=== PATIENT | female | born 1950 | race Caucasian/White ===

== ENCOUNTER 2017-02-05 19:04 | Inpatient (IN) | payer OTHER ==
[~2017-02-05] VITALS: Ht 167.6 cm; Wt 59.0 kg
--- NOTE | 2017-02-05 19:27 | NUR ---
VERY STRONG ODOR OF CIGAZRETTE SMOKE ABOUT PATIENT. TO ROOM 13 VIA W/C.
--- NOTE | 2017-02-05 20:00 | NUR ---
PT NOW WITH IV ESTABLISHED, BLOOD DRAWN, URINE COLLECTED. PT DESCRIBES EPIGASTRIC PAIN, SEVERE. AT BEDSIDE.
[2017-02-05 20:07] LABS: URINE BLOOD DIPSTICK TRACE-INTACT (NEGATIVE); URINE COLOR YELLOW; URINE GLUCOSE - DIPSTICK NEGATIVE (NEGATIVE); URINE KETONE 15 mg/dL (NEGATIVE); URINE NITRITE - DIPSTICK NEGATIVE (Negative); URINE PROTEIN - DIPSTICK TRACE mg/dL (NEG-TRACE); URINE SPECIFIC GRAVITY 1.025; URINE UROBILINOGEN - DIPSTICK 0.2 E.U./dL (0.2)
[2017-02-05 20:09] LABS: URINE BILIRUBIN - DIPSTICK NEGATIVE (NEGATIVE); URINE CLARITY HAZY; URINE LEUK ESTERASE MODERATE (NEGATIVE)
[2017-02-05 20:12] LABS: HEMATOCRIT 41.8 % (37.0-47.0); HEMOGLOBIN 14.1 g/dl (12.0-16.0); IMMATURE GRANULOCYTES 0.3 % (0.0-1.0); MEAN CELL VOLUME 95.2 fL CALC (80.0-100.0); MEAN CORPUSCULAR HGB 32.1 pG CALC (26.0-32.0); MEAN CORPUSCULAR HGB CONC 33.7 g/L CALC (32.0-36.0); NEUT# 9.57 thou/uL (2.00-7.15); RED BLOOD COUNT 4.39 mill/uL (4.20-5.60); RED CELL DISTRI WIDTH 13.4 % (11.5-15.5)
[2017-02-05 20:16] LABS: URINE MUCUS MANY hpf (NONE-FEW); URINE SQUAMOUS EPITHELIAL CELL MANY EPI/hpf (0-FEW)
[2017-02-05 20:33] LABS: ALBUMIN 4.2 g/dL (3.2-5.0); ALKALINE PHOSPHATASE 98 u/l (38-126); ANION GAP 13 (6-22 (CALC)); BILIRUBIN, TOTAL 0.9 mg/dL (0.0-1.4); BUN 8 mg/dL (8-23); BUN/CREATININE RATIO 16 (12-20 (CALC)); CALCIUM 9.6 mg/dL (8.4-10.2); CARBON DIOXIDE 24 mmol/l (22-30); CHLORIDE 102 mmol/l (95-108); CREATININE 0.5 mg/dL (0.5-1.0); GFR > 60 ML/MIN (>=60 (CALC)); GFR FOR AFR.AMER. > 60 ML/MIN (>=60 (CALC)); GLUCOSE 143 mg/dL (82-115); LIPASE 1382 u/l (23-300); POTASSIUM 3.3 mmol/l (3.5-5.1); SGOT/AST 40 u/l (9-36); SGPT/ALT 56 u/l (11-66); SODIUM 137 mmol/l (137-146)
--- NOTE | 2017-02-05 20:54 | NUR ---
REPORT RECIEVED FROM JAMIL PECK
--- NOTE | 2017-02-05 21:20 | NUR ---
MD ORDERED PO POTASSIUM WHILE PT IS NPO. ASKED IF HE WANTED PILLS TO BE GIVEN AND HE SAID YES. PT GIVEN PILLS WITH SMALL AMOUNT OF WATER
[2017-02-05 21:23] LABS: BARBITURATES NEGATIVE (NEGATIVE); COCAINE NEGATIVE (NEGATIVE); METHADONE NEGATIVE (NEGATIVE); OXCYCODONE NEGATIVE (NEGATIVE); TETRAHYDROCANNABIONOL NEGATIVE (NEGATIVE); TRICYLIC ANTIDEPRESSANTS NEGATIVE (NEGATIVE)
[2017-02-05 22:10] VITALS: BP 140/88
--- NOTE | 2017-02-05 22:35 | NUR ---
PT TRANSFERRED TO FLOOR VIA STRETCHER IN STABLE CONDITION ACCOMPANIED BY CISCO AU AND SPOUSE;PT AMBULATED WITH A STEADY GAIT TO BEDSIDE;WT AND VS OBTAINED BY JANET WEEKS;PT VOICES NO COMPLAINTS OF PAIN OR DISCOMFORTS AT THIS TIME STATING "I FEEL MUCH BETTER";PT EDUCATED ON PAIN SCALE AND REPORTING AND VERBALIZES UNDERSTANDING;PT ORIENTED TO ROOM AND CALL LIGHT SYSTEM;ASSESSMENT COMPLETED;#20G TO LAC INFUSING LR @ 150ML/HR WELL;PT EDUCATED ON NPO DIET;RESPIRATIONS EVEN AND UNLABORED ON RA;SKIN INTACT;PT PLEASANT TO NURSE BUT CONSTANTLY YELLING AT WHILE WRITTER IS COMPLETING ASSESSMENT;SAFETY PRECAUTIONS REINFORCED;PT DENIES ANY OTHER NEEDS AT THIS TIME;PT EDUCATED TO CALL FOR ASSISTANCE IF NEEDED;CALL LIGHT IN REACH;WILL CONTINUE TO MONITOR
--- NOTE | 2017-02-05 22:35 | NUR ---
Admission Note Report Given to: juan josé Transported by: Wheelchair x Stretcher Transported with: x Nurse Transporter x Patent IV O2 Integrity Manager pt left er in stable condition
--- NOTE | 2017-02-06 00:10 | NUR ---
PT APPEARS TO BE SLEEPING IN SUPINE POSITION;TEMP RE-CHECKED REPORTING 98.5;PT VOICES NO COMPLAINTS OR CONCERNS;IV SITE PATENT INFUSING LR WITH EASE;WILL CONTINUE TO MONITOR
--- NOTE | 2017-02-06 01:30 | NUR ---
PT COMPLAINS OF ABDOMINAL PAIN RATING 7/10 ON THE PAIN SCALE AND REQUESTS PAIN MEDICATION;PT MEDICATED WITH PRN TORADOL 15MG;WILL CONTINUE TO MONITOR
[2017-02-06 05:19] VITALS: BP 104/77
[2017-02-06 06:02] LABS: HEMATOCRIT 40.8 % (37.0-47.0); HEMOGLOBIN 13.6 g/dl (12.0-16.0); MEAN CELL VOLUME 96.2 fL CALC (80.0-100.0); MEAN CORPUSCULAR HGB 32.1 pG CALC (26.0-32.0); MEAN CORPUSCULAR HGB CONC 33.3 g/L CALC (32.0-36.0); RED BLOOD COUNT 4.24 mill/uL (4.20-5.60); RED CELL DISTRI WIDTH 13.7 % (11.5-15.5)
--- NOTE | 2017-02-06 06:15 | NUR ---
PT RESTING IN SEMI FOWLERS POSITION COMPLAINING OF ABDOMINAL PAIN RATING 10/10 ON THE PAIN SCALE;PT MEDICATED WITH PRN MORPHINE 2MG IVP;RESPIRATIONS EVEN AND UNLABORED ON RA;IV FLUIDS INFUSING WELL TO LAC;PT RE-POSITIONED IN BED;PT DENIES ANY OTHER NEEDS AT THIS TIME AND IS EDUCATED TO CALL FOR ASSISTANCE IF NEEDED;CALL LIGHT IN REACH;WILL CONTINUE TO MONITOR
[2017-02-06 06:19] LABS: ALKALINE PHOSPHATASE 95 u/l (38-126); ANION GAP 13 (6-22 (CALC)); BILIRUBIN, TOTAL 0.9 mg/dL (0.0-1.4); BUN 6 mg/dL (8-23); BUN/CREATININE RATIO 11 (12-20 (CALC)); CALCIUM 9.3 mg/dL (8.4-10.2); CARBON DIOXIDE 25 mmol/l (22-30); CHLORIDE 106 mmol/l (95-108); CREATININE 0.5 mg/dL (0.5-1.0); GFR > 60 ML/MIN (>=60 (CALC)); GFR FOR AFR.AMER. > 60 ML/MIN (>=60 (CALC)); GLUCOSE 128 mg/dL (82-115); LIPASE 893 u/l (23-300); MAGNESIUM 2.1 mg/dL (1.6-2.3); SGOT/AST 33 u/l (9-36); SGPT/ALT 48 u/l (11-66); SODIUM 140 mmol/l (137-146); TOTAL PROTEIN 6.7 g/dL (6.3-8.2)
--- NOTE | 2017-02-06 07:15 | NUR ---
SHIFT CHANGE REPORT FROM COLTON STEINBERG AWAKE ALERT AND ORIENTED RESTING IN BED, C/O LOWER ABDOMINAL PAIN @ 3/10 AT THIS TIME BUT REPORTED PAIN MEDS HAVE BEEN CONTROLLING MID-UPPER ABD PAIN, IVF INFUSING, CALL WARE IN REACH.
[2017-02-06 08:33] VITALS: BP 149/98
[2017-02-06 09:44] LABS: CHOLESTEROL HDL RATIO 4.6 (<4.4 (CALC))
--- NOTE | 2017-02-06 11:28 | NUR ---
PAIN CONCERNS ADDRESSED, TRANSPORTED OFF UNIT AT THIS TIME VIA W/C FOR PROCEDURE, WILL CONTINUE TO MONITOR.
--- NOTE | 2017-02-06 15:03 | NUR ---
PT TEARY EYED AT THIS TIME, C/O OF SON AND OF DOG & PET BIRD RECENTLY, ALSO C/O MARRIAGE PROBLEMS. I LISTENED THERAPEUTICALLY AND GAVE INFORMATION ON INVOLVEMENT IN COMMMUNITY ACTIVITIES SUCH VISITING CHURCHES AND JOINING SOCIAL GROUPS TO GET INVOLVED IN SOCIAL ACTIVITIES AND MEETING NEW PEOPLE SINCE SHE IS NEW IN THIS AREA. ALSO MD'S ORDER FOR COPING WITH NICOTINE ADDICTION. PT IS APPRECIATIVE FOR THERAPEUTIC/EDUCATIONAL TIME SPENT WITH HER. PAIN CONCERNS ADDRESSED, CALL WARE IN REACH.
[2017-02-06 15:23] VITALS: BP 139/92
--- NOTE | 2017-02-06 17:40 | NUR ---
SPOUSE VISITING AT THIS TIME, ALL NEEDS ADDRESSED, CALL WARE IN REACH.
[2017-02-06 19:00] VITALS: BP 134/83
--- NOTE | 2017-02-06 19:30 | NUR ---
PT RESTING IN BED WATCHING TV. PT IS ALERT AND ORIENTED X3. PERRLA. HR REGULAR. PULSES PALPABLE THROUGHOUT. NO EDEMA NOTED. RESP ARE EVEN AND UNLABORED. WHEEZING NOTED THROUGHOUT LUNGS. PT IS A CURRENT SMOKER. NICOTINE PATCH IN PLACE. BS ACTIVE. PT STATES THAT SHE HAS NOT HAD A BM IN AT LEAST 3 DAYS. EXPLAINED TO PT THAT HER DIET WOULD BE ADVANCE AT BREAKFAST IN THE AM TO FULL LIQUID SINCE SHE IS TOLERATING CLEAR LIQUIDS. #20 LFA LR @150CC/HR INFUSING. NO REDNESS OR EDEMA NOTED. WILL CONTINUE TO MONITOR
--- NOTE | 2017-02-07 | NUR ---
PT SITTING UP ON SIDE OF BED. RESP ARE EVEN AND UNLABORED. PT STATES THAT SHE IS HAVING ABD PAIN 11/24. WILL MEDICATE PER MD ORDERS. WILL CONTINUE TO MONITOR
[2017-02-07 04:10] VITALS: BP 146/88
--- NOTE | 2017-02-07 04:10 | NUR ---
PT RESTING IN BED WITH EYES CLOSED. AROUSES TO VERBAL STIMULI. RESP ARE EVEN AND UNLABORED. NO COMPLAINTS AT THIS TIME. WILL CONTINUE TO MONITOR
[2017-02-07 05:57] LABS: HEMATOCRIT 35.4 % (37.0-47.0); HEMOGLOBIN 11.7 g/dl (12.0-16.0); MEAN CORPUSCULAR HGB 32.1 pG CALC (26.0-32.0); MEAN CORPUSCULAR HGB CONC 33.1 g/L CALC (32.0-36.0); RED BLOOD COUNT 3.65 mill/uL (4.20-5.60); RED CELL DISTRI WIDTH 13.6 % (11.5-15.5)
[2017-02-07 06:02] LABS: AMYLASE 51 u/l (30-110); ANION GAP 9 (6-22 (CALC)); BUN 3 mg/dL (8-23); BUN/CREATININE RATIO 7 (12-20 (CALC)); CARBON DIOXIDE 29 mmol/l (22-30); CHLORIDE 105 mmol/l (95-108); CREATININE 0.5 mg/dL (0.5-1.0); GFR > 60 ML/MIN (>=60 (CALC)); GFR FOR AFR.AMER. > 60 ML/MIN (>=60 (CALC)); GLUCOSE 125 mg/dL (82-115); LIPASE 480 u/l (23-300); POTASSIUM 3.4 mmol/l (3.5-5.1); SODIUM 140 mmol/l (137-146)
[2017-02-07 07:26] VITALS: BP 147/93
--- NOTE | 2017-02-07 07:31 | NUR ---
SHIFT CHANGE REPORT FROM JUAN, PT AWAKE ALERT AND ORIENTED, C/O ABD PAIN @ 10/10 AT THIS TIME, VERY TALKATIVE AND SHARES PROBLEM CONCERNS, STATES SHE HAD BEEN TAKING ATENOLOL 50MG DAILY BUT STOLLED APPROXIMATELY 2 YRS AGO AND HAS NOT SEEN A DOCTOR FOR ABOUT 2 YEARS WELL. EDUCATED ON STROKE AND PA RISKS COUPLED WITH SOCIAL HISTORY OF SMOKING AND DRINKING. ENCOURAGED TO ADDRESS HEALTH CONCERNS BEFORE CATASTROPHE OCCURS.
[2017-02-07 10:39] VITALS: BP 147/93
[2017-02-07] MEDS ORDERED: PANTOPRAZOLE SO40 M1 PO (11:01)
[2017-02-07] MEDS ORDERED: KLONOPIN0.5 MG PO (11:01)
[2017-02-07] MEDS ORDERED: FISH OIL1000 MG PO (11:01)
[2017-02-07] MEDS ORDERED: NICODERM C21 MG/242 TD (11:01)
[2017-02-07] MEDS ORDERED: LOSARTAN POTASS25 MG PO (11:01)
[2017-02-07] MEDS ORDERED: TRICOR145 MG PO (11:01)
[2017-02-07] MEDS ORDERED: LEXAPRO10 MG PO (11:01)
[2017-02-07] MEDS ORDERED: KEFLEX500 MG PO (11:04)
[2017-02-07] MEDS ORDERED: TRAMADOL HCL50 MG PO (11:04)
--- NOTE | 2017-02-07 11:39 | NUR ---
C/O ABD PAIN AT THIS TIME AND REQUESTING MAIN MED BEFORE D/C HOME, ADVISED CONCERNS WILL BE ADDRESSED IN TIMELY MANNER.
--- NOTE | 2017-02-07 11:49 | NUR ---
Talked to patient during discharge med rec. Topics discussed included discharge instructions, smoking cessation, reducing alcohol intake, and medication side-effects. The importance of completing the entire course of abx was discussed. Talked about side-effects of keflex including nausea/vomiting/diarrhea. Patient was advised to seek medical help if experiencing severe diarrhea. DIscussed the risk of respiratory depression with Ultram. Talked about decreasing alcohol intake due to potential durg interactions. Patient was advised to monitor blood pressure at home and keep a daily log. DASH diet was also discussed. Talked about the potential side-effects of Fenofibrate including myalgia and coca-cola colored urine. Side-effects of SSRIs and NRTs were discussed in detail.
--- NOTE | 2017-02-07 13:36 | NUR ---
Discharge instructions given. Patient verbalizes understanding of same. Discharged in good condition via Wheelchair to Home with *Other. All belongings sent with pt. LEFT FOR HOME IN CAB @ [id number].
== END 2017-02-07 13:23 | disposition home or self-care (01) | DRG 439 ==
LOC: ED 19:04 → ED-I 20:00 → ED 20:58 → MS2 20:59
PROVIDERS: Emergency Medicine; Internal Medicine; ADMIT Internal Medicine; ATTEND Internal Medicine
PROC: 3E0234Z Introduction of Serum, Toxoid and Vaccine into Muscle, Percutaneous Approach (ICD-10-PCS; principal; 2017-02-07)
DX: K85.20 Alcohol induced acute pancreatitis without necrosis or infection (principal); N39.0 Urinary tract infection, site not specified; K70.0 Alcoholic fatty liver; E78.1 Pure hyperglyceridemia; I10 Essential (primary) hypertension; K86.0 Alcohol-induced chronic pancreatitis; F10.20 Alcohol dependence, uncomplicated; F17.210 Nicotine dependence, cigarettes, uncomplicated; F32.9 Major depressive disorder, single episode, unspecified; F41.9 Anxiety disorder, unspecified; B95.4 Other streptococcus as the cause of diseases classified elsewhere; Z87.11 Personal history of peptic ulcer disease; Z23 Encounter for immunization
CPT/HCPCS: Q9967

== ENCOUNTER 2017-02-27 11:25 | Emergency (ER) | payer OTHER ==
[~2017-02-27] VITALS: Ht 167.6 cm; Wt 65.0 kg
[~2017-02-27 11:25] MED LIST: FISH OIL1000 MG PO; KEFLEX500 MG PO; KLONOPIN0.5 MG PO; LEXAPRO10 MG PO; LOSARTAN POTASS25 MG PO; NICODERM C21 MG/242 TD; PANTOPRAZOLE SO40 M1 PO; TRAMADOL HCL50 MG PO; TRICOR145 MG PO
[2017-02-27] MEDS ORDERED: CARAFATE1 GM PO (12:20)
[2017-02-27 12:47] LABS: HEMATOCRIT 44.6 % (37.0-47.0); HEMOGLOBIN 14.6 g/dl (12.0-16.0); IMMATURE GRANULOCYTES 0.3 % (0.0-1.0); MEAN CELL VOLUME 96.1 fL CALC (80.0-100.0); MEAN CORPUSCULAR HGB 31.5 pG CALC (26.0-32.0); MEAN CORPUSCULAR HGB CONC 32.7 g/L CALC (32.0-36.0); NEUT# 6.12 thou/uL (2.00-7.15); RED BLOOD COUNT 4.64 mill/uL (4.20-5.60); RED CELL DISTRI WIDTH 13.3 % (11.5-15.5); URINE BLOOD DIPSTICK NEGATIVE (NEGATIVE); URINE COLOR YELLOW; URINE GLUCOSE - DIPSTICK NEGATIVE (NEGATIVE); URINE KETONE NEGATIVE (NEGATIVE); URINE LEUK ESTERASE NEGATIVE (NEGATIVE); URINE NITRITE - DIPSTICK NEGATIVE (Negative); URINE PH 5.5 (4.5-8.0); URINE PROTEIN - DIPSTICK NEGATIVE (NEG-TRACE); URINE SPECIFIC GRAVITY >=1.030; URINE UROBILINOGEN - DIPSTICK 0.2 E.U./dL (0.2)
[2017-02-27 12:55] LABS: ALBUMIN 4.4 g/dL (3.2-5.0); ALKALINE PHOSPHATASE 106 u/l (38-126); AMYLASE 56 u/l (30-110); ANION GAP 13 (6-22 (CALC)); BILIRUBIN, TOTAL 0.5 mg/dL (0.0-1.4); BUN 7 mg/dL (8-23); BUN/CREATININE RATIO 12 (12-20 (CALC)); CALCIUM 9.4 mg/dL (8.4-10.2); CARBON DIOXIDE 27 mmol/l (22-30); CHLORIDE 102 mmol/l (95-108); CREATININE 0.6 mg/dL (0.5-1.0); GFR > 60 ML/MIN (>=60 (CALC)); GFR FOR AFR.AMER. > 60 ML/MIN (>=60 (CALC)); GLUCOSE 123 mg/dL (82-115); LIPASE 420 u/l (23-300); POTASSIUM 3.8 mmol/l (3.5-5.1); SGOT/AST 30 u/l (9-36); SGPT/ALT 29 u/l (11-66); SODIUM 138 mmol/l (137-146); TOTAL PROTEIN 7.4 g/dL (6.3-8.2)
[2017-02-27 12:57] LABS: URINE BILIRUBIN - DIPSTICK SMALL (NEGATIVE); URINE CLARITY CLEAR
[2017-02-27] MEDS ORDERED: PREVACID30 M3 PO (14:36)
[2017-02-27] MEDS ORDERED: LORTAB 1010 MG PO (14:36)
[2017-02-27] MEDS ORDERED: ZOFRAN ODT4 MG PO (14:36)
[2017-02-27 14:42] VITALS: BP 126/84
== END 2017-02-27 14:55 | disposition home or self-care (01) | DRG 392 ==
LOC: ED 11:25
PROVIDERS: Emergency Medicine
DX: R10.13 Epigastric pain (principal); K86.1 Other chronic pancreatitis; R11.2 Nausea with vomiting, unspecified; I10 Essential (primary) hypertension; K27.9 Peptic ulcer, site unspecified, unspecified as acute or chronic, without hemorrhage or perforation; F17.200 Nicotine dependence, unspecified, uncomplicated
CPT/HCPCS: Q9967; S0164

== ENCOUNTER 2017-03-07 14:00 | Emergency (ER) | payer OTHER ==
[~2017-03-07] VITALS: Ht 167.6 cm; Wt 59.0 kg
[~2017-03-07 14:00] MED LIST changes: +CARAFATE1 GM PO; +LORTAB 1010 MG PO; +PREVACID30 M3 PO; +ZOFRAN ODT4 MG PO
[2017-03-07 15:13] LABS: HEMATOCRIT 45.9 % (37.0-47.0); HEMOGLOBIN 15.2 g/dl (12.0-16.0); IMMATURE GRANULOCYTES 0.2 % (0.0-1.0); MEAN CELL VOLUME 96.4 fL CALC (80.0-100.0); MEAN CORPUSCULAR HGB 31.9 pG CALC (26.0-32.0); MEAN CORPUSCULAR HGB CONC 33.1 g/L CALC (32.0-36.0); NEUT# 8.13 thou/uL (2.00-7.15); RED BLOOD COUNT 4.76 mill/uL (4.20-5.60); RED CELL DISTRI WIDTH 13.9 % (11.5-15.5)
[2017-03-07 15:54] LABS: ALBUMIN 4.4 g/dL (3.2-5.0); ALKALINE PHOSPHATASE 112 u/l (38-126); AMYLASE 99 u/l (30-110); ANION GAP 17 (6-22 (CALC)); BILIRUBIN, TOTAL 0.7 mg/dL (0.0-1.4); BUN 9 mg/dL (8-23); BUN/CREATININE RATIO 15 (12-20 (CALC)); CALCIUM 9.8 mg/dL (8.4-10.2); CARBON DIOXIDE 22 mmol/l (22-30); CHLORIDE 105 mmol/l (95-108); CREATININE 0.6 mg/dL (0.5-1.0); GFR > 60 ML/MIN (>=60 (CALC)); GFR FOR AFR.AMER. > 60 ML/MIN (>=60 (CALC)); GLUCOSE 118 mg/dL (82-115); LIPASE 820 u/l (23-300); SGOT/AST 29 u/l (9-36); SGPT/ALT 24 u/l (11-66); SODIUM 140 mmol/l (137-146); TOTAL PROTEIN 7.1 g/dL (6.3-8.2)
[2017-03-07 16:20] LABS: MYOGLOBIN 24 ng/mL (0 - 62)
[2017-03-07] MEDS ORDERED: LORTAB 5/3255 MG PO (18:38)
[2017-03-07 18:42] VITALS: BP 127/80
== END 2017-03-07 18:20 | disposition home or self-care (01) | DRG 440 ==
LOC: ED 14:00
PROVIDERS: Emergency Medicine
DX: K86.1 Other chronic pancreatitis (principal); F17.210 Nicotine dependence, cigarettes, uncomplicated; R10.13 Epigastric pain; R11.10 Vomiting, unspecified; R94.31 Abnormal electrocardiogram [ECG] [EKG]; I10 Essential (primary) hypertension
CPT/HCPCS: Q9967

== ENCOUNTER 2017-03-20 10:29 | Inpatient (IN) | payer OTHER ==
[~2017-03-20] VITALS: Ht 167.6 cm; Wt 58.0 kg
[~2017-03-20 10:29] MED LIST changes: +LORTAB 5/3255 MG PO
--- NOTE | 2017-03-20 10:34 | NUR ---
AMBULATORY TO ER ROOM 9, TO BED
[2017-03-20 11:09] LABS: BARBITURATES NEGATIVE (NEGATIVE); COCAINE NEGATIVE (NEGATIVE); METHADONE NEGATIVE (NEGATIVE); TETRAHYDROCANNABIONOL NEGATIVE (NEGATIVE); TRICYLIC ANTIDEPRESSANTS NEGATIVE (NEGATIVE)
[2017-03-20] MEDS ORDERED: CREON3000 UNIT PO (11:09)
[2017-03-20 11:10] LABS: OXCYCODONE NEGATIVE (NEGATIVE); URINE BILIRUBIN - DIPSTICK NEGATIVE (NEGATIVE); URINE BLOOD DIPSTICK TRACE-INTACT (NEGATIVE); URINE CLARITY CLEAR; URINE COLOR YELLOW; URINE GLUCOSE - DIPSTICK 500 mg/dL (NEGATIVE); URINE KETONE TRACE mg/dL (NEGATIVE); URINE LEUK ESTERASE TRACE (NEGATIVE); URINE NITRITE - DIPSTICK NEGATIVE (Negative); URINE PH 5.5 (4.5-8.0); URINE PROTEIN - DIPSTICK NEGATIVE (NEG-TRACE); URINE SPECIFIC GRAVITY >=1.030; URINE UROBILINOGEN - DIPSTICK 0.2 E.U./dL (0.2)
[2017-03-20 11:12] LABS: ALBUMIN 4.6 g/dL (3.2-5.0); ALKALINE PHOSPHATASE 96 u/l (38-126); ANION GAP 18 (6-22 (CALC)); BILIRUBIN, TOTAL 0.5 mg/dL (0.0-1.4); BUN 9 mg/dL (8-23); BUN/CREATININE RATIO 15 (12-20 (CALC)); CALCIUM 10.6 mg/dL (8.4-10.2); CARBON DIOXIDE 24 mmol/l (22-30); CHLORIDE 102 mmol/l (95-108); CREATININE 0.6 mg/dL (0.5-1.0); GFR > 60 ML/MIN (>=60 (CALC)); GFR FOR AFR.AMER. > 60 ML/MIN (>=60 (CALC)); GLUCOSE 168 mg/dL (82-115); POTASSIUM 4.2 mmol/l (3.5-5.1); SGOT/AST 24 u/l (9-36); SGPT/ALT 23 u/l (11-66); SODIUM 139 mmol/l (137-146); TOTAL PROTEIN 7.4 g/dL (6.3-8.2)
--- NOTE | 2017-03-20 11:20 | NUR ---
PATIENT UPDATED ON PLAN OF CARE VERBAL UNDERSTANDING, DENIES ANY NEEDS. WILL CONTINUE TO MONITOR.
[2017-03-20 11:34] LABS: HEMOGLOBIN 15.5 g/dl (12.0-16.0); IMMATURE GRANULOCYTES 0.4 % (0.0-1.0); MEAN CELL VOLUME 97.3 fL CALC (80.0-100.0); MEAN CORPUSCULAR HGB 32.1 pG CALC (26.0-32.0); NEUT# 8.9 thou/uL (2.00-7.15); RED BLOOD COUNT 4.83 mill/uL (4.20-5.60); RED CELL DISTRI WIDTH 13.7 % (11.5-15.5)
--- NOTE | 2017-03-20 12:41 | NUR ---
PATIENT REPORTS PAIN LEVEL 10/10. MD INFORMED. AWAITNG NEW ORDERS.
--- NOTE | 2017-03-20 13:09 | NUR ---
PATIENT MEDICATED PER MD ORDER FOR PAIN TILERATED WELL.
--- NOTE | 2017-03-20 13:39 | NUR ---
SBAR PRINTED TO FLOOR
--- NOTE | 2017-03-20 13:41 | NUR ---
PATIENT REPORTS PAIN LEVEL 3/10 AT THIS TIME.
--- NOTE | 2017-03-20 14:12 | NUR ---
ATTEMPT MADE TO CALL REPORT, SPOKE TO KIKE. STATES "NURSE WILL CALL YOU RIGHT BACK."
--- NOTE | 2017-03-20 14:20 | NUR ---
PT TO ROOM VIA STRETCHER ACCOMPANIED BY STAFF AND FAMILY; AMBULATORY TO CHAIR WITHOUT DIFFICULTY; A/O X3; C/O ABD PAIN 310; #[address], NO REDNESS OR EDEMA NOTED; ORIENTED TO ROOM AND CALL SYSTEM; CALL WARE WITHIN REACH; WILL CONTINUE TO MONITOR.
--- NOTE | 2017-03-20 14:24 | NUR ---
REPORT GIVEN TO CISCO ZEPEDA.
--- NOTE | 2017-03-20 14:25 | NUR ---
Admission Note Report Given to: SBAR PRINTED TO FLOOR Transported by: X Wheelchair Stretcher Transported with: X Nurse Transporter X Patent IV O2 Transit Survey Worker
--- NOTE | 2017-03-20 14:30 | NUR ---
PATIENT TRANSPORTED TO [facility] VIA WHEELCHAIR. CARE RELINQUISHED TO CISCO ZEPEDA.
[2017-03-20 14:47] VITALS: BP 134/90
--- NOTE | 2017-03-20 17:00 | NUR ---
PT IN SUPINE POSITION; MEDICATED ORDERED FOR C/O ABD PAIN 11/24; IVF INFUSING WITHOUT DIFFICULTY; CALL WARE WITHIN REACH; WILL CONTINUE TO MONITOR.
[2017-03-20 18:40] VITALS: BP 102/60
--- NOTE | 2017-03-20 19:45 | NUR ---
PT RESTING IN BED WATCHING TV. RESP EVEN AND UNLABORED. LUNGS CLEAR BILAT. NO DISTRESS NOTED. ABD SOFT, BOWEL SOUNDS PRESENT. PEDAL PULSES PALPATED BILAT. IV LFA PATENT, NO REDNESS OR EDEMA NOTED. PT DENIES ANY PAIN OR DISCOMFORT. FREQUENT ROUNDS MADE. SAFETY PRECAUTIONS REINFORCED. CALL LIGHT WITHIN REACH.
[2017-03-20 21:56] VITALS: BP 129/82
--- NOTE | 2017-03-21 00:20 | NUR ---
PT APPEARS TO BE SLEEPING WITH EYES CLOSE. RESP EVEN AND UNLABORED. NO DISTRESS NOTED. IV PATENT. CALL LIGHT WITHIN REACH.
--- NOTE | 2017-03-21 02:38 | NUR ---
PT STATES ABD PAIN; MEDICATED. PT STATES ANXIETY ON HEALTH ISSUES, EMOTIONAL. TALKED WITH PT TO REDUCE ANXIETY DUE TO COMPLAINTS OF HEALTH ISSUES. REASSURED MD WOULD BE IN TO SPEAK WITH PT IN AM.
--- NOTE | 2017-03-21 04:20 | NUR ---
PT APPEARS TO BE SLEEPING. RESP EVEN AND UNLABORED. NO DISTRESS NOTED. CALL LIGHT WITHIN REACH.
[2017-03-21 04:50] VITALS: BP 100/69
[2017-03-21 06:34] VITALS: BP 123/79
[2017-03-21 06:47] LABS: HEMATOCRIT 37.4 % (37.0-47.0); HEMOGLOBIN 12.2 g/dl (12.0-16.0); MEAN CELL VOLUME 99.5 fL CALC (80.0-100.0); MEAN CORPUSCULAR HGB 32.4 pG CALC (26.0-32.0); MEAN CORPUSCULAR HGB CONC 32.6 g/L CALC (32.0-36.0); RED BLOOD COUNT 3.76 mill/uL (4.20-5.60); RED CELL DISTRI WIDTH 13.7 % (11.5-15.5)
[2017-03-21 07:14] LABS: ANION GAP 11 (6-22 (CALC)); BUN 6 mg/dL (8-23); BUN/CREATININE RATIO 13 (12-20 (CALC)); CARBON DIOXIDE 25 mmol/l (22-30); CHLORIDE 109 mmol/l (95-108); CREATININE 0.5 mg/dL (0.5-1.0); GFR > 60 ML/MIN (>=60 (CALC)); GFR FOR AFR.AMER. > 60 ML/MIN (>=60 (CALC)); GLUCOSE 120 mg/dL (82-115); LIPASE 669 u/l (23-300); MAGNESIUM 2.3 mg/dL (1.6-2.3); POTASSIUM 3.8 mmol/l (3.5-5.1); SODIUM 141 mmol/l (137-146)
--- NOTE | 2017-03-21 08:00 | NUR ---
PT AMBULATORY IN ROOM; IVF INFUSING WITHOUT DIFFICULTY; PT C/O ABD PAIN 09/23, WILL MEDICATE WHEN TIME; CALL WARE WITHIN REACH; WILL CONTINUE TO MONITOR.
[2017-03-21 08:35] VITALS: BP 118/80
--- NOTE | 2017-03-21 13:00 | NUR ---
PT MEDICATED ORDERED FOR C/O ABD PAIN 09/23; CALL WARE WITHIN REACH; WILL CONTINUE TO MONITOR.
--- NOTE | 2017-03-21 13:05 | NUR ---
UMESH CATTLE TESTER IN TO SEE PT TO DISCUSS LOW FAT DIET
[2017-03-21] MEDS ORDERED: CREON3000 UNIT PO (14:48)
[2017-03-21] MEDS ORDERED: LORTAB 5/3255 MG PO (14:48)
[2017-03-21] MEDS ORDERED: ELAVIL50 MG PO (14:48)
[2017-03-21] MEDS ORDERED: LOSARTAN POTASS25 MG PO (14:48)
[2017-03-21] MEDS ORDERED: PANTOPRAZOLE SO40 M1 PO (14:48)
[2017-03-21] MEDS ORDERED: TRICOR145 MG PO (14:50)
[2017-03-21] MEDS ORDERED: NICODERM C21 MG/242 TD (14:50)
--- NOTE | 2017-03-21 16:31 | NUR ---
Discharge instructions given. Patient verbalizes understanding of same. Discharged in stable condition via Wheelchair (TAXI) to Home with SELF. All belongings sent with pt.
== END 2017-03-21 16:10 | disposition home or self-care (01) | DRG 440 ==
LOC: ED 10:29 → ED-I 13:15 → ED 13:37 → MS2 13:38
PROVIDERS: Emergency Medicine; ADMIT Internal Medicine; ATTEND Internal Medicine
DX: K85.90 Acute pancreatitis without necrosis or infection, unspecified (principal); K86.1 Other chronic pancreatitis; I10 Essential (primary) hypertension; E78.1 Pure hyperglyceridemia; M19.90 Unspecified osteoarthritis, unspecified site; F10.10 Alcohol abuse, uncomplicated; F17.210 Nicotine dependence, cigarettes, uncomplicated; F41.9 Anxiety disorder, unspecified; F32.9 Major depressive disorder, single episode, unspecified; F51.04 Psychophysiologic insomnia; Z87.11 Personal history of peptic ulcer disease; Z91.14 Patient's other noncompliance with medication regimen
CPT/HCPCS: S0164

== ENCOUNTER 2017-04-26 16:05 | Observation (INO) | payer OTHER ==
[~2017-04-26] VITALS: Ht 167.6 cm; Wt 60.0 kg
[~2017-04-26 16:05] MED LIST changes: +CREON3000 UNIT PO; +ELAVIL50 MG PO
--- NOTE | 2017-04-26 16:10 | NUR ---
PT AMBULATED INTO ER, THROUGH REGISTRATION. TAKEN TO TRIAGE BY WC.
--- NOTE | 2017-04-26 16:15 | NUR ---
PT TAKEN TO ER ROOM 14 BY WC. PT DRINKING WATER IN TRIAGE, NO S/S OF DISTRESS.
--- NOTE | 2017-04-26 16:18 | NUR ---
PT UP TO BATHROOM FOR UA UNASSISTED, CHANGED INTO GOWN.
--- NOTE | 2017-04-26 16:46 | NUR ---
PT STATES HAS BEEN DIAGNOSED WITH PANCREATITIS BACK IN JANUARY, HAS HAD OVER [address] SCANS IN PAST FEW MONTHS, AND JUST WANTS SOME PAIN CONTROL
--- NOTE | 2017-04-26 17:02 | NUR ---
PT STATES PAIN IS STILL SEVERE AFTER TORADOL GIVEN, NOTIFIED, NO NEW ORDERS
[2017-04-26 17:05] LABS: HEMATOCRIT 44.1 % (37.0-47.0); HEMOGLOBIN 14.6 g/dl (12.0-16.0); IMMATURE GRANULOCYTES 0.4 % (0.0-1.0); MEAN CELL VOLUME 93.8 fL CALC (80.0-100.0); MEAN CORPUSCULAR HGB 31.1 pG CALC (26.0-32.0); MEAN CORPUSCULAR HGB CONC 33.1 g/L CALC (32.0-36.0); NEUT# 14.62 thou/uL (2.00-7.15); RED BLOOD COUNT 4.7 mill/uL (4.20-5.60); RED CELL DISTRI WIDTH 14.1 % (11.5-15.5)
[2017-04-26 17:07] LABS: URINE BILIRUBIN - DIPSTICK NEGATIVE (NEGATIVE); URINE BLOOD DIPSTICK TRACE-INTACT (NEGATIVE); URINE CLARITY CLEAR; URINE COLOR YELLOW; URINE GLUCOSE - DIPSTICK NEGATIVE (NEGATIVE); URINE KETONE NEGATIVE (NEGATIVE); URINE LEUK ESTERASE NEGATIVE (NEGATIVE); URINE NITRITE - DIPSTICK NEGATIVE (Negative); URINE PH 5.5 (4.5-8.0); URINE PROTEIN - DIPSTICK NEGATIVE (NEG-TRACE); URINE SPECIFIC GRAVITY 1.025; URINE UROBILINOGEN - DIPSTICK 0.2 E.U./dL (0.2)
[2017-04-26 17:20] LABS: ALBUMIN 4.6 g/dL (3.2-5.0); ALKALINE PHOSPHATASE 100 u/l (38-126); ANION GAP 19 (6-22 (CALC)); BUN 11 mg/dL (8-23); BUN/CREATININE RATIO 20 (12-20 (CALC)); CARBON DIOXIDE 21 mmol/l (22-30); CHLORIDE 102 mmol/l (95-108); CREATININE 0.5 mg/dL (0.5-1.0); GFR > 60 ML/MIN (>=60 (CALC)); GFR FOR AFR.AMER. > 60 ML/MIN (>=60 (CALC)); LIPASE 422 u/l (23-300); POTASSIUM 4.5 mmol/l (3.5-5.1); SGOT/AST 30 u/l (9-36); SGPT/ALT 24 u/l (11-66); SODIUM 138 mmol/l (137-146); TOTAL PROTEIN 7.4 g/dL (6.3-8.2)
--- NOTE | 2017-04-26 17:48 | NUR ---
PT BACK FROM CT. SCAN, ADVISED OF WAIT TIME FOR DOCTOR TO SEE RESULTS.
--- NOTE | 2017-04-26 18:42 | NUR ---
PT STATES SHE IS NOT DECIDED WHETHER SHE WANTS TO STAY OR NOT. WILL LET US KNOW IN A FEW MIN
--- NOTE | 2017-04-26 18:55 | NUR ---
REPORT GIVEN TO THE FLOOR FOR CONTINUATION OF CARE. FLOOR IS BUSY WILL GIVE THEM 15 MIN BEFORE PT IS TO BE BROUGHT TO FLOOR
--- NOTE | 2017-04-26 19:19 | NUR ---
TO MS 290 IN STABLE CONDITION
--- NOTE | 2017-04-26 19:20 | NUR ---
PT TRANSFERRED TO FLOOR IN STABLE CONDITION VIA STRETCHER ACCOMPANIED CISCO CHENG AND SPOUSE;PT AMBULATED TO STANDING SCALE AND BEDSIDE WITH STEADY GAIT;VS OBTAINED BY JANET COOLEY;PT ORIENTED TO ROOM AND CALL LIGHT SYSTEM;PT REPORTS A RECURRENT EPISODE OF PANCREATITIS SINCE 04/25/17 WHERE PAIN HAS BEEN UNCONTROLLED,NO VOMITING NOTED;ABDOMEN DISTENDED,SOFT,TENDER IN ALL FOUR QUADS;HYPERACTIVE BOWEL SOUNDS NOTED;SINCE BEING MEDICATED IN THE ER PAIN HAS NOT DECREASED,PAIN REMAINS A 9/10 ON THE PAIN SCALE;LAST BM 04/25/17,PT REPORTS TO NOT BE PASSING ANY FLATUS;RESPIRATIONS EVEN AND UNLABORED ON RA,CLEAR LUNG SOUNDS NOTED;STRONG PEDAL PULSES;SKIN INTACT;PT A&O X3;#20G TO LAC INFUSING NS,SITE APPEARS HEALTHY;SAFETY PRECAUTIONS REINFORCED WITH BED IN THE LOWEST POSITION;PT ENCOURAGED TO CALL FOR ASSISTANCE IF NEEDED;CALL LIGHT IN REACH;WILL CONTINUE TO MONITOR
[2017-04-26 19:25] VITALS: BP 132/86
--- NOTE | 2017-04-26 21:00 | NUR ---
PT RESTING AT BEDSIDE CRYING STATING "THIS PAIN IN SO BAD I NEED SOMETHING FOR PAIN, I SHOULD HAVE JUST LEFT!"; NOTIFIED OF INCREASING PAIN;NEW ORDER RECEIVED
--- NOTE | 2017-04-26 21:40 | NUR ---
PT MEDICATED WITH MORPHINE 2MG IVP FOR ABDOMINAL PAIN RATING 10/10 ON THE PAIN SCALE;WILL MONITOR FOR EFFECTIVENESS
--- NOTE | 2017-04-26 23:45 | NUR ---
PT RESTING IN SUPINE POSITION COMPLAINING OF ABDOMINAL PAIN;PAIN MEDICATION SCHEDULE RE-EDUCATED AND PT VERBALIZES UNDERSTANDING;IV FLUIDS INFUSING WELL TO LAC;CALL LIGHT IN REACH;WILL CONTINUE TO MONITOR
--- NOTE | 2017-04-27 04:10 | NUR ---
PT REQUESTS PAIN MEDICATION AND NAUSEA AT THIS TIME;PT MEDICATED WITH MORPHINE 2MG IVP FOR ABDOMINAL PAIN 10/10 ON THE PAIN SCALE AND ZOFRAN 4MG IVP FOR NAUSEA;VS OBTAINED;PT STATES "I CAME HERE FOR MY PAIN AND THIS MORPHINE ISNT HELPING.YOU NEED TO TELL THE DOCTOR TO UP MY DOSAGE!";WRITTER INFORMED PT THAT WAS NOT GOING TO INCREASE HER PAIN MEDICATION AT THIS TIME AND HE WILL BE HERE IN THE MORNING SO SHE COULD DISCUSS HER WISHES WITH HIM IN PERSON,PT VERBALIZES UNDERSTANDING;WILL CONTINUE TO MONITOR
[2017-04-27 04:11] VITALS: BP 123/81
[2017-04-27 05:04] LABS: HEMATOCRIT 38.2 % (37.0-47.0); HEMOGLOBIN 12.4 g/dl (12.0-16.0); IMMATURE GRANULOCYTES 0.3 % (0.0-1.0); MEAN CELL VOLUME 95.7 fL CALC (80.0-100.0); MEAN CORPUSCULAR HGB 31.1 pG CALC (26.0-32.0); MEAN CORPUSCULAR HGB CONC 32.5 g/L CALC (32.0-36.0); NEUT# 8.05 thou/uL (2.00-7.15); RED BLOOD COUNT 3.99 mill/uL (4.20-5.60); RED CELL DISTRI WIDTH 14.3 % (11.5-15.5)
[2017-04-27 05:37] LABS: ALBUMIN 3.5 g/dL (3.2-5.0); ALKALINE PHOSPHATASE 84 u/l (38-126); ANION GAP 13 (6-22 (CALC)); BILIRUBIN, TOTAL 0.6 mg/dL (0.0-1.4); BUN 10 mg/dL (8-23); BUN/CREATININE RATIO 18 (12-20 (CALC)); CARBON DIOXIDE 23 mmol/l (22-30); CHLORIDE 106 mmol/l (95-108); CREATININE 0.6 mg/dL (0.5-1.0); GFR > 60 ML/MIN (>=60 (CALC)); GFR FOR AFR.AMER. > 60 ML/MIN (>=60 (CALC)); LIPASE 328 u/l (23-300); POTASSIUM 3.9 mmol/l (3.5-5.1); SGOT/AST 18 u/l (9-36); SGPT/ALT 24 u/l (11-66); SODIUM 138 mmol/l (137-146); TOTAL PROTEIN 5.9 g/dL (6.3-8.2)
--- NOTE | 2017-04-27 07:38 | NUR ---
REPORT RECEIVED FROM MICHEL STEINBERG. PT SITTING UPRIGHT ON SIDE OF BED. REPORTS SEVERE ABDOMINAL PAIN. STATES "DHEERAJ BEEN IN LOTS OF HOSPITALS FOR THIS LOTS OF TIMES, AND EVERYONE ELSE CAN HELP MANAGE THE PAIN BETTER." DISEASE PROCESS ADN TREATMENT PLAN REVIEWED. PT REPORTS DILAUDID IS THE TREATMENT. INFORMATION AND CURRENT ORDERS REINFORCED. PT DRINKING ICE WATER. TOLERATING WELL. DR. BAUTISTA NOTIFIED OF PAIN REPORTING. MS INCREASED FOR NEXT DOSE.
[2017-04-27 07:46] VITALS: BP 140/77
--- NOTE | 2017-04-27 08:41 | NUR ---
PT REPORTS NO RELIEF OF PAIN FROM INCREASED MORPHINE DOSE. PT STATES "I DONT UNDERSTAND, ITS NEVER TAKEN THIS LONG TO MAKE ME FEEL BETTER."
--- NOTE | 2017-04-27 11:27 | NUR ---
DR. BAUTISTA IN TO SEE PT.
[2017-04-27 15:30] VITALS: BP 136/83
--- NOTE | 2017-04-27 16:27 | NUR ---
PT AMBULATING IN HALLWAYS. ACTIVITY TOLERATED ENCOURAGED. PT STATES UNDERSTANDING.
[2017-04-27 19:30] VITALS: BP 130/88
--- NOTE | 2017-04-27 20:00 | NUR ---
BEDSIDE REPORT RECEIVED FROM CISCO WEINER. PT RESTING IN BED WATCHING TV. C/O SEVERE ABDOMINAL PAIN AND REQUESTS PAIN MEDICATION. MORPHINE GIVEN WITH ZOFRAN. RESPIRATIONS EVEN AND UNLABORED ON ROOM AIR. CONTINUES CLEAR LIQUID DIET. PLAN OF CARE DISCUSSED. PT ENCOURAGED TO VERBALZIE CONCERNS. STATES UNDERSTANDING. SAFETY MEASURES IN PLACE. CALL LIGHT WITHIN REACH.
[2017-04-28 04:58] VITALS: BP 108/72
--- NOTE | 2017-04-28 05:04 | NUR ---
PT C/O NAUSEA AND LOWER BACK PAIN. MORPHINE AND ZOFRAN GIVEN AT THIS TIME. PT REQUESTING PAIN MEDICATION EVERY 4 HOURS; GIVEN WITH GOOD EFFECT. NO OTHER REQUESTS AT THIS TIME. SHE IS INDEPENDENT IN ROOM. USES CALL LIGHT PRN FOR ASSISTANCE. CALL LIGHT WITHIN REACH.
--- NOTE | 2017-04-28 07:40 | NUR ---
REPORT RECEIVED FROM NIGHT NURSE. PT.IS IN BED W/LIGHTS OFF, BUT AWOKE TO OUR ENTERING THE ROOM. PT.DENIES ANY NEEDS AT THIS TIME. CALL LIGHT IS AT SIDE AND PT.ENCOURAGED TO CALL IF ANY NEEDS ARISE.
[2017-04-28 07:55] VITALS: BP 100/68
--- NOTE | 2017-04-28 07:55 | NUR ---
PT ALERT ORIENTED X3, RESP EVEN & UNLABORED, PUPIL EQUAL REACT TO LIGHT, LUNGS CLEAR, ACTIVE BOWEL SOUNDS, ABD DISTENDED TENDER ALL FOUR QUADRANTS, PT STATED LAST BM 04/25/17, SKIN TUGOR NORMAL, SKIN COLOR PALE, NO WHEEZING NOTED, NO EDEMA, PT C/O ABD PAIN & LLQ PAIN, PT STATED THAT IT HURTS WHEN SHE TAKES DEEP BREATHS, PAIN SCALE 9/10, NURSE NOTIFIED, PT STATED "I'M DOING EVERTHING I CAN SUCH CHANGING MY DIET, I QUIT DRINKING BUT SMOKE A LITTLE AND MY PAIN DOES NOT STOP, PAIN IS SO BAD I THOUGHT I HAD LUNG CANCER, I WANT THIS FIX, I DON'T LIKE BEING IN THE HOSP, AND WOULD LIKE TO GO HOME BUT I WANT MY PAIN TO STOP" PT MOVES AROUND INDEPENENDENTLY IN HER ROOM. 0930 PT WAS MEDICATED, SHE'S SITTING UP IN THE CHAIR. PT WAS ASKED IF SHE WANTS A SHOWER, SHE WILL LET ME KNOW, WILL CONTINUE TO MONITOR.
--- NOTE | 2017-04-28 08:10 | NUR ---
PT.REQUESTED TO SEE THE NURSE. UPON ENTERING THE ROOM, PT.IS STANDING UP NEXT TO THE BED, REPORTS HEADING TO THE RESTROOM. PT.C/O PAIN 9/10 IN EPIGASTRIC REGION RADIATING AROUND TO SIDE AND BACK AND PAIN IN UPPER RIGHT QUAD.OF ABDOMEN. PT.STATED THAT IT "HAS BEEN OVER 4HRS SINCE MY PAIN MEDICINE AND I NEED IT NOW." I EXPLAINED TO THE PT THAT IT HAD BEEN ADMINISTERED TO HER @0445 AND THAT IT WAS NOT YET AVAILABLE. SHE RESPONDED W/ "OKAY." ASSISTED PT.TO RESTROOM AND INSTRUCTED HER TO PULL RED CORD WHEN FINISHED OR IF FURTHER ASSISTANCE WAS NEEDED.
--- NOTE | 2017-04-28 08:49 | NUR ---
PT.C/O TO STUDENT NURSE THAT SHE FEELS LIKE SHE NEEDS TO PASS GAS AND IS HAVING DIFFICULTY. STUDENT NURSE PROVIDED WARM PRUNE JUICE AND INSTRUCTED PT.TO AMBULATE TO ASSIST IN MOVING GAS AND TO SIT ON THE TOILET.
[2017-04-28 10:26] VITALS: BP 100/68
--- NOTE | 2017-04-28 10:42 | NUR ---
PT VOIDED 500 CLEAR URINE, CALL LIGHT IN REACH, BED LOCKED.
--- NOTE | 2017-04-28 11:26 | NUR ---
PT LAYING IN BED WITH EYES OPEN, PT STATED PAIN 11/24 NURSE INFORMED, WILL CONTINUE TO MONITOR.
--- NOTE | 2017-04-28 12:33 | NUR ---
IV FLUIDS REPLACED. AND JUMA MARIE IN TO SEE PT.AT THIS TIME. PT.ASKED I WAS LEAVING THE ROOM IF SHE COULD HAVE SOMETHING FOR PAIN. I INFORMED HER THAT HER PAIN MEDICATION WAS ONLY AVAILABLE EVERY 4 HOURS AND THAT IT WAS NOT AVAILABLE AT THIS TIME.
[2017-04-28] MEDS ORDERED: TRAMADOL HCL50 MG PO (12:34)
--- NOTE | 2017-04-28 13:53 | NUR ---
PT.DISCHARGED IN GOOD CONDITION VIA WHEELCHAIR ACCOMPANIED BY VOLUNTEER. IV REMOVED, SITE APPEARS HEALTHY AND INTACT. PT.WAS INSTRUCTED TO CALL FOR A CAB, SHE DID NOT. SO I EXPLAINED THAT THEY CAN CALL A TAXI FOR HER WHEN SHE GETS DOWN STAIRS.
== END 2017-04-28 13:48 | disposition home or self-care (01) | DRG 440 ==
LOC: ED 16:05 → ED-I 18:23 → ED 18:36 → MS2 18:37
PROVIDERS: Family Medicine; ADMIT Internal Medicine; ATTEND Internal Medicine
DX: K85.90 Acute pancreatitis without necrosis or infection, unspecified (principal); K86.0 Alcohol-induced chronic pancreatitis; I10 Essential (primary) hypertension; E78.1 Pure hyperglyceridemia; M19.90 Unspecified osteoarthritis, unspecified site; F17.210 Nicotine dependence, cigarettes, uncomplicated; F10.10 Alcohol abuse, uncomplicated; Z87.11 Personal history of peptic ulcer disease
CPT/HCPCS: G0378; J1650; Q9967

== ENCOUNTER 2017-05-12 10:55 | Emergency (ER) | payer OTHER ==
[~2017-05-12] VITALS: Ht 167.6 cm; Wt 58.2 kg
[2017-05-12 12:09] LABS: URINE BLOOD DIPSTICK NEGATIVE (NEGATIVE); URINE COLOR YELLOW; URINE GLUCOSE - DIPSTICK NEGATIVE (NEGATIVE); URINE KETONE TRACE mg/dL (NEGATIVE); URINE LEUK ESTERASE TRACE (NEGATIVE); URINE NITRITE - DIPSTICK NEGATIVE (Negative); URINE PH 5.5 (4.5-8.0); URINE PROTEIN - DIPSTICK TRACE mg/dL (NEG-TRACE); URINE SPECIFIC GRAVITY >=1.030; URINE UROBILINOGEN - DIPSTICK 0.2 E.U./dL (0.2)
[2017-05-12 12:15] LABS: URINE BILIRUBIN - DIPSTICK SMALL (NEGATIVE); URINE CLARITY CLEAR
[2017-05-12 12:17] LABS: IMMATURE GRANULOCYTES 0.4 % (0.0-1.0); MEAN CELL VOLUME 93.3 fL CALC (80.0-100.0); MEAN CORPUSCULAR HGB 30.2 pG CALC (26.0-32.0); MEAN CORPUSCULAR HGB CONC 32.4 g/L CALC (32.0-36.0); NEUT# 9.72 thou/uL (2.00-7.15); RED BLOOD COUNT 4.96 mill/uL (4.20-5.60); RED CELL DISTRI WIDTH 14.6 % (11.5-15.5)
[2017-05-12 12:25] LABS: HEMATOCRIT 46.3 % (37.0-47.0)
[2017-05-12 12:29] LABS: AMYLASE 80 u/l (30-110); ANION GAP 17 (6-22 (CALC)); BILIRUBIN, TOTAL 0.5 mg/dL (0.0-1.4); BUN 9 mg/dL (8-23); BUN/CREATININE RATIO 16 (12-20 (CALC)); CARBON DIOXIDE 24 mmol/l (22-30); CHLORIDE 100 mmol/l (95-108); CREATININE 0.6 mg/dL (0.5-1.0); GFR > 60 ML/MIN (>=60 (CALC)); GFR FOR AFR.AMER. > 60 ML/MIN (>=60 (CALC)); LIPASE 453 u/l (23-300); POTASSIUM 4.1 mmol/l (3.5-5.1); SGPT/ALT 34 u/l (11-66); SODIUM 137 mmol/l (137-146)
[2017-05-12 12:39] LABS: ALBUMIN 4.6 g/dL (3.2-5.0); ALKALINE PHOSPHATASE 142 u/l (38-126); SGOT/AST 42 u/l (9-36); TOTAL PROTEIN 7.6 g/dL (6.3-8.2)
[2017-05-12] MEDS ORDERED: PROTONIX40 MG PO (15:10)
[2017-05-12] MEDS ORDERED: ONDANSETRON4 MG PO (15:10)
[2017-05-12] MEDS ORDERED: LORTAB 1010 MG PO (15:10)
[2017-05-12 15:32] VITALS: BP 136/83
== END 2017-05-12 15:49 | disposition home or self-care (01) | DRG 440 ==
LOC: ED 10:55
PROVIDERS: Emergency Medicine
DX: K86.1 Other chronic pancreatitis (principal); I10 Essential (primary) hypertension; F17.210 Nicotine dependence, cigarettes, uncomplicated; M19.90 Unspecified osteoarthritis, unspecified site; R11.2 Nausea with vomiting, unspecified; R10.13 Epigastric pain
CPT/HCPCS: Q9967; S0164

== ENCOUNTER 2017-05-31 15:47 | Observation (INO) | payer OTHER ==
[~2017-05-31] VITALS: Ht 167.6 cm; Wt 57.8 kg
[~2017-05-31 15:47] MED LIST changes: +ONDANSETRON4 MG PO; +PROTONIX40 MG PO
--- NOTE | 2017-05-31 16:24 | NUR ---
PATIENT AMBULATED TO ROOM WITH STEADY GAIT AND PHYSICIAN NOTIFIED OF PATIENT STATUS
--- NOTE | 2017-05-31 17:10 | NUR ---
IV INITIATED AND LABS COLLECTED. PT HAS HX OF PANCREATITIS AND REPORTS NAUSEA AND ABDOMINAL PAIN X 2 DAYS. BS ACTIVE, ABD TENDER TO THE UPPER QUADRENTS. PT REPORTS 10/10 UPPER ABD PAIN AND NAUSEA. PT AWARE OF PLAN OF CARE AND WAIT TIME , CALL WARE WITHIN REACH.
[2017-05-31 17:14] LABS: HEMATOCRIT 45.4 % (37.0-47.0); HEMOGLOBIN 15.4 g/dl (12.0-16.0); IMMATURE GRANULOCYTES 0.3 % (0.0-1.0); MEAN CELL VOLUME 88.5 fL CALC (80.0-100.0); MEAN CORPUSCULAR HGB CONC 33.9 g/L CALC (32.0-36.0); NEUT# 9.34 thou/uL (2.00-7.15); RED BLOOD COUNT 5.13 mill/uL (4.20-5.60); RED CELL DISTRI WIDTH 15.2 % (11.5-15.5)
--- NOTE | 2017-05-31 17:20 | NUR ---
PT MEDICATED WITH 0.5 MG OF DILAUDID AND 4 MG OF ZOFRAN, IV FLUID INITIATED. PT RESTING COMFORTABLY IN STRECHER AND DENIES ANY NEEDS AT THIS TIME. CALL WARE WITHIN REACH.
[2017-05-31 17:28] LABS: ALBUMIN 4.1 g/dL (3.2-5.0); ALKALINE PHOSPHATASE 134 u/l (38-126); AMYLASE 87 u/l (30-110); ANION GAP 16 (6-22 (CALC)); BILIRUBIN, TOTAL 0.6 mg/dL (0.0-1.4); BUN 5 mg/dL (8-23); BUN/CREATININE RATIO 10 (12-20 (CALC)); CARBON DIOXIDE 22 mmol/l (22-30); CHLORIDE 98 mmol/l (95-108); CREATININE 0.5 mg/dL (0.5-1.0); GFR > 60 ML/MIN (>=60 (CALC)); GFR FOR AFR.AMER. > 60 ML/MIN (>=60 (CALC)); LIPASE 584 u/l (23-300); POTASSIUM 3.9 mmol/l (3.5-5.1); SGOT/AST 26 u/l (9-36); SGPT/ALT 34 u/l (11-66); SODIUM 132 mmol/l (137-146); TOTAL PROTEIN 6.8 g/dL (6.3-8.2)
--- NOTE | 2017-05-31 17:59 | NUR ---
SBAR PRINTED TO FLOOR
--- NOTE | 2017-05-31 18:00 | NUR ---
PT PAIN NOW 6/10 AND DENIES ANY NAUSEA AT THIS TIME. PT AWARE OF PENDING ADMISSION. CALL WARE WITHIN REACH, WILL CONTINUE TO MONITOR.
--- NOTE | 2017-05-31 18:54 | NUR ---
REPORT CALLED TO CISCO LOZA. REPORT ALSO GIVEN TO CISCO RAINEY TO TRANSFER PATIENT AT 1915.
--- NOTE | 2017-05-31 19:05 | NUR ---
PT.ARRIVED TO THE FLOOR @1905 VIA STRETCHER ACCOMPANIED BY ED NURSE. PT.APPEARS TO BE IN STABLE CONDITION AT THIS TIME. PT.ORIENTED TO ROOM,CALL SYSTEM, LIGHTS, BED AND TV. DENIES ANY OTHER NEEDS AT THIS TIME. V/S ARE BEING ASSESSED AT THIS TIME. PT.ENCOURAGED TO CALL IF ANY NEEDS ARISE. CALL LIGHT W/IN REACH
--- NOTE | 2017-05-31 19:11 | NUR ---
Admission Note Report Given to: CISCO LOZA BY CISCO VERAS Transported by: X Wheelchair Stretcher Transported with: X Nurse Transporter X Patent IV O2 Editor Managing Newspaper
[2017-05-31 19:20] VITALS: BP 156/89
--- NOTE | 2017-05-31 22:24 | NUR ---
PT.MEDICATED FOR PAIN, IV FLUIDS GOING NS@100, AND PM MEDICATIONS ADMINISTERED ORDERED. PT.LEFT IN BED W/LIGHTS OFF, DENIES ANY OTHER NEEDS AT THIS TIME. CALL LIGHT IS W/IN REACH AND PT.ENCOURAGED TO CALL IF ANY NEEDS ARISE.
--- NOTE | 2017-06-01 03:33 | NUR ---
PT.IS IN BED W/LIGHTS OUT APPEARS TO BE SLEEPING, NO S/S OF DISTRESS AT THIS TIME. CALL LIGHT IS AT BEDSIDE
[2017-06-01 04:06] VITALS: BP 114/73
--- NOTE | 2017-06-01 05:10 | NUR ---
PT.MEDICATED FOR PAIN REPORTED 9/10 ON PAIN SCALE. PT.DENIES ANY OTHER NEEDS A AT THIS TIME. CALL LIGHT IS W/IN REACH
[2017-06-01 05:24] LABS: URINE BILIRUBIN - DIPSTICK NEGATIVE (NEGATIVE); URINE BLOOD DIPSTICK TRACE-LYSED (NEGATIVE); URINE COLOR YELLOW; URINE GLUCOSE - DIPSTICK NEGATIVE (NEGATIVE); URINE KETONE NEGATIVE (NEGATIVE); URINE LEUK ESTERASE NEGATIVE (NEGATIVE); URINE NITRITE - DIPSTICK NEGATIVE (Negative); URINE PROTEIN - DIPSTICK NEGATIVE (NEG-TRACE); URINE UROBILINOGEN - DIPSTICK 0.2 E.U./dL (0.2)
[2017-06-01 05:27] LABS: IMMATURE GRANULOCYTES 0.4 % (0.0-1.0); MEAN CELL VOLUME 91.1 fL CALC (80.0-100.0); MEAN CORPUSCULAR HGB 30.1 pG CALC (26.0-32.0); MEAN CORPUSCULAR HGB CONC 33.1 g/L CALC (32.0-36.0); NEUT# 4.5 thou/uL (2.00-7.15); RED BLOOD COUNT 4.28 mill/uL (4.20-5.60); RED CELL DISTRI WIDTH 15.6 % (11.5-15.5)
[2017-06-01 05:28] LABS: HEMOGLOBIN 12.9 g/dl (12.0-16.0)
[2017-06-01 05:29] LABS: URINE CLARITY CLEAR
[2017-06-01 05:51] LABS: ALKALINE PHOSPHATASE 101 u/l (38-126); AMYLASE 43 u/l (30-110); BILIRUBIN, TOTAL 0.5 mg/dL (0.0-1.4); BUN 4 mg/dL (8-23); BUN/CREATININE RATIO 7 (12-20 (CALC)); CARBON DIOXIDE 26 mmol/l (22-30); CHLORIDE 105 mmol/l (95-108); CREATININE 0.5 mg/dL (0.5-1.0); GFR > 60 ML/MIN (>=60 (CALC)); GFR FOR AFR.AMER. > 60 ML/MIN (>=60 (CALC)); LIPASE 193 u/l (23-300); POTASSIUM 3.7 mmol/l (3.5-5.1); SGOT/AST 18 u/l (9-36); SGPT/ALT 21 u/l (11-66); TOTAL PROTEIN 5.5 g/dL (6.3-8.2)
[2017-06-01 05:55] LABS: ANION GAP 12 (6-22 (CALC)); SODIUM 139 mmol/l (137-146)
[2017-06-01 05:56] LABS: ALBUMIN 3.1 g/dL (3.2-5.0)
--- NOTE | 2017-06-01 07:00 | NUR ---
SHIFT CHANGE REPORT FROM DAGO PT SLEEPING, BREATHING EVEN AND NON-LABORED, NO SIGN DISCOMFORT, CALL WARE IN REACH.
[2017-06-01 08:09] VITALS: BP 112/77
--- NOTE | 2017-06-01 12:00 | NUR ---
PT HAS MANY QUESTIONS ABOUT HER ABDOMINAL PAIN AND DISTENSION, ADVISED TO ADDRESS QUESTIONS WITH MD WHENEVER HE GETS HERE, ALL PAIN CONCERNS ADDRESSED, CALL WARE IN REACH.
[2017-06-01] MEDS ORDERED: LYRICA75 MG PO (15:29)
[2017-06-01 16:00] VITALS: BP 142/80
--- NOTE | 2017-06-01 16:00 | NUR ---
INQUIRING WHETHER OR NOT SHE WILL BE D/C TODAY AND INQUIRES ABOUT NICOTINE PATCH, BUDGET CONTROLLER INFORMED OF REQUEST FOR PATCH AND FURTHER QUESTIONS TO BE ADDRESSED BY .
--- NOTE | 2017-06-01 16:16 | NUR ---
PT C/O SIMULATION TECHNICIAN ROUNDED AND SHE WANTED TO EXPLAIN TO HER THE SYMPTOMS SHE HAS BUT THE SIMULATION TECHNICIAN DIDNT SEEM TO UNDERSTAND AND ROOM AFTER TALKING TO HER, ADVISED MEDICAL STAFF WILL SEE HER AGAIN AND DISCUSS PLAN OF CARE.
--- NOTE | 2017-06-01 17:48 | NUR ---
Discharge instructions given. Patient verbalizes understanding of same. Discharged in good condition via Ambulatory to Home with *Other. All belongings sent with pt.
[2017-06-02] MEDS ORDERED: HYDROCO/APAP1 TA9 PO (20:33)
[2017-06-02] MEDS ORDERED: ONDANSETRON4 MG PO (20:33)
[2017-06-02] MEDS ORDERED: OMNICEF300 M1 PO (20:33)
== END 2017-06-01 17:50 | disposition home or self-care (01) | DRG 440 ==
LOC: ED 15:47 → ED-I 17:36 → ED 17:59 → MS2 18:00
PROVIDERS: Emergency Medicine; ADMIT Internal Medicine; ATTEND Internal Medicine
DX: K85.20 Alcohol induced acute pancreatitis without necrosis or infection (principal); K86.0 Alcohol-induced chronic pancreatitis; F10.21 Alcohol dependence, in remission; F17.210 Nicotine dependence, cigarettes, uncomplicated; E78.1 Pure hyperglyceridemia; I10 Essential (primary) hypertension; M19.90 Unspecified osteoarthritis, unspecified site; Z87.11 Personal history of peptic ulcer disease
CPT/HCPCS: G0378

== ENCOUNTER 2017-06-02 18:42 | Emergency (ER) | payer OTHER ==
[~2017-06-02] VITALS: Ht 167.6 cm; Wt 55.0 kg
[~2017-06-02 18:42] MED LIST changes: +LYRICA75 MG PO
[2017-06-02 19:26] LABS: HEMATOCRIT 40.9 % (37.0-47.0); HEMOGLOBIN 13.7 g/dl (12.0-16.0); IMMATURE GRANULOCYTES 0.4 % (0.0-1.0); MEAN CELL VOLUME 90.3 fL CALC (80.0-100.0); MEAN CORPUSCULAR HGB 30.2 pG CALC (26.0-32.0); MEAN CORPUSCULAR HGB CONC 33.5 g/L CALC (32.0-36.0); NEUT# 11.98 thou/uL (2.00-7.15); RED BLOOD COUNT 4.53 mill/uL (4.20-5.60); RED CELL DISTRI WIDTH 15.8 % (11.5-15.5)
[2017-06-02 19:30] LABS: URINE BLOOD DIPSTICK TRACE-INTACT (NEGATIVE); URINE COLOR YELLOW; URINE GLUCOSE - DIPSTICK 250 mg/dL (NEGATIVE); URINE KETONE 15 mg/dL (NEGATIVE); URINE NITRITE - DIPSTICK NEGATIVE (Negative); URINE PROTEIN - DIPSTICK NEGATIVE (NEG-TRACE); URINE SPECIFIC GRAVITY >=1.030
[2017-06-02 19:36] LABS: URINE BILIRUBIN - DIPSTICK NEGATIVE (NEGATIVE); URINE CLARITY CLEAR; URINE LEUK ESTERASE SMALL (NEGATIVE)
[2017-06-02 19:50] LABS: ALKALINE PHOSPHATASE 108 u/l (38-126); ANION GAP 18 (6-22 (CALC)); BILIRUBIN, TOTAL 0.7 mg/dL (0.0-1.4); BUN 2 mg/dL (8-23); BUN/CREATININE RATIO 5 (12-20 (CALC)); CARBON DIOXIDE 23 mmol/l (22-30); CHLORIDE 97 mmol/l (95-108); CREATININE 0.5 mg/dL (0.5-1.0); GFR > 60 ML/MIN (>=60 (CALC)); GFR FOR AFR.AMER. > 60 ML/MIN (>=60 (CALC)); LIPASE 378 u/l (23-300); POTASSIUM 3.5 mmol/l (3.5-5.1); SGOT/AST 20 u/l (9-36); SGPT/ALT 23 u/l (11-66); SODIUM 134 mmol/l (137-146); TOTAL PROTEIN 6.5 g/dL (6.3-8.2)
[2017-06-02 19:56] LABS: ALBUMIN 3.9 g/dL (3.2-5.0)
[2017-06-02 19:59] LABS: URINE BACTERIA RARE hpf; URINE MUCUS MODERATE hpf (NONE-FEW); URINE RBC 0-2 RBC/hpf (0-5); URINE SQUAMOUS EPITHELIAL CELL RARE EPI/hpf (0-FEW)
[2017-06-02] MEDS ORDERED: HYDROCO/APAP1 TA9 PO (20:33)
[2017-06-02] MEDS ORDERED: ONDANSETRON4 MG PO (20:33)
[2017-06-02] MEDS ORDERED: OMNICEF300 M1 PO (20:33)
[2017-06-02 21:28] VITALS: BP 140/83
== END 2017-06-02 21:28 | disposition home or self-care (01) | DRG 690 ==
LOC: ED 18:42 → ED-I 20:20 → ED 21:28
PROVIDERS: Family Medicine
DX: N39.0 Urinary tract infection, site not specified (principal); K86.1 Other chronic pancreatitis; R10.13 Epigastric pain; R11.0 Nausea; F17.210 Nicotine dependence, cigarettes, uncomplicated
CPT/HCPCS: Q9967

== ENCOUNTER 2018-02-15 12:22 | Emergency (ER) | payer OTHER ==
[~2018-02-15] VITALS: Ht 167.6 cm; Wt 59.4 kg
[~2018-02-15 12:22] MED LIST changes: +HYDROCO/APAP1 TA9 PO; +OMNICEF300 M1 PO
[2018-02-15 13:34] LABS: URINE BILIRUBIN - DIPSTICK NEGATIVE (NEGATIVE); URINE BLOOD DIPSTICK TRACE-INTACT (NEGATIVE); URINE COLOR YELLOW; URINE GLUCOSE - DIPSTICK NEGATIVE (NEGATIVE); URINE KETONE NEGATIVE (NEGATIVE); URINE LEUK ESTERASE TRACE (NEGATIVE); URINE NITRITE - DIPSTICK NEGATIVE (Negative); URINE PH 5.5 (4.5-8.0); URINE PROTEIN - DIPSTICK TRACE mg/dL (NEG-TRACE); URINE SPECIFIC GRAVITY >=1.030; URINE UROBILINOGEN - DIPSTICK 0.2 E.U./dL (0.2)
[2018-02-15 13:35] LABS: URINE CLARITY CLEAR
[2018-02-15 13:42] LABS: BARBITURATES NEGATIVE (NEGATIVE); COCAINE NEGATIVE (NEGATIVE); HEMATOCRIT 43.4 % (37.0-47.0); HEMOGLOBIN 14.2 g/dl (12.0-16.0); IMMATURE GRANULOCYTES 0.3 % (0.0-5.0); MEAN CORPUSCULAR HGB 32.3 pG CALC (26.0-32.0); MEAN CORPUSCULAR HGB CONC 32.7 g/L CALC (32.0-36.0); METHADONE NEGATIVE (NEGATIVE); OXCYCODONE NEGATIVE (NEGATIVE); RED BLOOD COUNT 4.4 mill/uL (4.20-5.60); RED CELL DISTRI WIDTH 13.9 % (11.5-15.5); TETRAHYDROCANNABIONOL NEGATIVE (NEGATIVE); TRICYLIC ANTIDEPRESSANTS NEGATIVE (NEGATIVE)
[2018-02-15 13:43] LABS: MEAN CELL VOLUME 98.6 fL CALC (80.0-100.0)
[2018-02-15 13:51] LABS: ALBUMIN 4.5 g/dL (3.2-5.0); ALKALINE PHOSPHATASE 101 u/l (38-126); AMYLASE 39 u/l (30-110); ANION GAP 15 (6-22 (CALC)); BILIRUBIN, TOTAL 0.8 mg/dL (0.0-1.4); BUN 9 mg/dL (8-23); BUN/CREATININE RATIO 19 (12-20 (CALC)); CARBON DIOXIDE 26 mmol/l (22-30); CHLORIDE 100 mmol/l (95-108); CREATININE 0.5 mg/dL (0.5-1.0); GFR > 60 ML/MIN (>=60 (CALC)); GFR FOR AFR.AMER. > 60 ML/MIN (>=60 (CALC)); LIPASE 205 u/l (23-300); POTASSIUM 3.7 mmol/l (3.5-5.1); SGOT/AST 57 u/l (9-36); SODIUM 138 mmol/l (137-146); TOTAL PROTEIN 7.6 g/dL (6.3-8.2)
[2018-02-15] MEDS ORDERED: ULTRAM50 M1 PO (14:07)
[2018-02-15] MEDS ORDERED: PROTONIX40 M2 PO (14:07)
[2018-02-15 14:10] VITALS: BP 154/104
== END 2018-02-15 14:19 | disposition home or self-care (01) ==
LOC: ED 12:22
PROVIDERS: Emergency Medicine
DX: R10.12 Left upper quadrant pain (principal); R11.2 Nausea with vomiting, unspecified; Z87.19 Personal history of other diseases of the digestive system; F17.210 Nicotine dependence, cigarettes, uncomplicated; R50.9 Fever, unspecified

== ENCOUNTER 2018-02-17 11:10 | Emergency (ER) | payer OTHER ==
[~2018-02-17] VITALS: Ht 167.6 cm; Wt 59.5 kg
[~2018-02-17 11:10] MED LIST changes: +PROTONIX40 M2 PO; +ULTRAM50 M1 PO
[2018-02-17 11:45] LABS: HEMATOCRIT 41.6 % (37.0-47.0); HEMOGLOBIN 13.7 g/dl (12.0-16.0); IMMATURE GRANULOCYTES 0.4 % (0.0-5.0); MEAN CELL VOLUME 98.1 fL CALC (80.0-100.0); MEAN CORPUSCULAR HGB 32.3 pG CALC (26.0-32.0); MEAN CORPUSCULAR HGB CONC 32.9 g/L CALC (32.0-36.0); NEUT# 5.58 thou/uL (2.00-7.15); RED BLOOD COUNT 4.24 mill/uL (4.20-5.60); RED CELL DISTRI WIDTH 13.3 % (11.5-15.5)
[2018-02-17 11:47] LABS: URINE BLOOD DIPSTICK NEGATIVE (NEGATIVE); URINE COLOR YELLOW; URINE GLUCOSE - DIPSTICK NEGATIVE (NEGATIVE); URINE KETONE >=80 mg/dL (NEGATIVE); URINE LEUK ESTERASE TRACE (NEGATIVE); URINE NITRITE - DIPSTICK NEGATIVE (Negative); URINE PH 5.5 (4.5-8.0); URINE PROTEIN - DIPSTICK TRACE mg/dL (NEG-TRACE); URINE SPECIFIC GRAVITY >=1.030
[2018-02-17 11:48] LABS: URINE CLARITY CLOUDY
[2018-02-17 11:50] LABS: URINE BILIRUBIN - DIPSTICK MODERATE (NEGATIVE)
[2018-02-17 11:52] LABS: URINE RBC 0-2 RBC/hpf (0-5)
[2018-02-17 11:53] LABS: URINE MUCUS MANY hpf (NONE-FEW); URINE SQUAMOUS EPITHELIAL CELL MODERATE EPI/hpf (0-FEW)
[2018-02-17 11:59] LABS: ALBUMIN 4.1 g/dL (3.2-5.0); ALKALINE PHOSPHATASE 96 u/l (38-126); AMYLASE 36 u/l (30-110); ANION GAP 15 (6-22 (CALC)); BILIRUBIN, TOTAL 0.8 mg/dL (0.0-1.4); BUN 8 mg/dL (8-23); BUN/CREATININE RATIO 18 (12-20 (CALC)); CARBON DIOXIDE 26 mmol/l (22-30); CHLORIDE 96 mmol/l (95-108); CREATININE 0.5 mg/dL (0.5-1.0); GFR > 60 ML/MIN (>=60 (CALC)); GFR FOR AFR.AMER. > 60 ML/MIN (>=60 (CALC)); LIPASE 110 u/l (23-300); POTASSIUM 3.3 mmol/l (3.5-5.1); SGOT/AST 43 u/l (9-36); SODIUM 134 mmol/l (137-146); TOTAL PROTEIN 7.1 g/dL (6.3-8.2)
[2018-02-17] MEDS ORDERED: LORTAB 5/3255 MG PO (13:16)
[2018-02-17 13:30] VITALS: BP 160/74
== END 2018-02-17 13:30 | disposition home or self-care (01) ==
LOC: ED 11:10
DX: R10.13 Epigastric pain (principal); R11.2 Nausea with vomiting, unspecified; K59.00 Constipation, unspecified; Z87.19 Personal history of other diseases of the digestive system; F17.210 Nicotine dependence, cigarettes, uncomplicated
CPT/HCPCS: Q9967

== ENCOUNTER 2018-04-29 16:29 | Emergency (ER) | payer OTHER ==
[~2018-04-29] VITALS: Ht 167.6 cm; Wt 59.5 kg
[2018-04-29] MEDS ORDERED: TORADOL PO (18:30)
[2018-04-29] MEDS ORDERED: FLEXERIL PO (18:30)
[2018-04-29 19:07] VITALS: BP 128/79
== END 2018-04-29 19:07 | disposition home or self-care (01) ==
LOC: ED 16:29
DX: S39.012A Strain of muscle, fascia and tendon of lower back, initial encounter (principal); M19.90 Unspecified osteoarthritis, unspecified site; I10 Essential (primary) hypertension; F17.210 Nicotine dependence, cigarettes, uncomplicated; K86.1 Other chronic pancreatitis; W01.0XXA Fall on same level from slipping, tripping and stumbling without subsequent striking against object, initial encounter; Y93.9 Activity, unspecified; Y92.008 Other place in unspecified non-institutional (private) residence as the place of occurrence of the external cause

== ENCOUNTER 2019-01-13 10:29 | Emergency (ER) | payer OTHER ==
[~2019-01-13] VITALS: Ht 167.6 cm; Wt 59.1 kg
[~2019-01-13 10:29] MED LIST changes: +FLEXERIL PO; +TORADOL PO
[2019-01-13] MEDS ORDERED: ESCITALOPRAM OX20 MG PO (12:00)
[2019-01-13] MEDS ORDERED: LOSARTAN POTASS25 MG PO (12:00)
[2019-01-13] MEDS ORDERED: VOLTAREN - GENE75 MG PO (13:18)
[2019-01-13] MEDS ORDERED: LORTAB 5/3255 MG PO (13:18)
[2019-01-13 13:43] VITALS: BP 142/87
== END 2019-01-13 13:43 | disposition home or self-care (01) ==
LOC: ED 10:29
DX: S42.032A Displaced fracture of lateral end of left clavicle, initial encounter for closed fracture (principal); S39.012A Strain of muscle, fascia and tendon of lower back, initial encounter; I10 Essential (primary) hypertension; F17.200 Nicotine dependence, unspecified, uncomplicated; W18.39XA Other fall on same level, initial encounter

== ENCOUNTER 2019-02-08 19:30 | Observation (INO) | payer OTHER ==
[~2019-02-08] VITALS: Ht 167.6 cm; Wt 62.8 kg
[~2019-02-08 19:30] MED LIST changes: +ESCITALOPRAM OX20 MG PO; +VOLTAREN - GENE75 MG PO
--- NOTE | 2019-02-08 19:47 | NUR ---
PT. TO ROOM 10 VIA EMS WITH C/O QUITTING SMOKING APPROX 1 WEEK AGO AND THE BECOMING SOB FOR 1 WEEK. PT. STATES SHE HAS A PRODUCTIVE PHILLIPS SPUTUM WITH THE COUGH. O2 SAT ON RA 91%. BILATERAL LUNG REBOLLAR ARE DEMINISHED WITH WHEEZES.
--- NOTE | 2019-02-08 19:55 | NUR ---
RESP. THERAPIST IN ROOM TO ADMINISTER BREATHING TX.
--- NOTE | 2019-02-08 19:57 | NUR ---
BREATHING TREATMENT GIVEN BACK TO BACK. BREATHING TECH. FOR GOOD DEPOSITION TO THE LUNGS.
[2019-02-08 20:05] LABS: HEMATOCRIT 43.4 % (37.0-47.0); HEMOGLOBIN 14.2 g/dl (12.0-16.0); IMMATURE GRANULOCYTES 0.2 % (0.0-5.0); MEAN CORPUSCULAR HGB 32.1 pG CALC (26.0-32.0); MEAN CORPUSCULAR HGB CONC 32.7 g/L CALC (32.0-36.0); NEUT# 5.12 thou/uL (2.00-7.15); RED BLOOD COUNT 4.43 mill/uL (4.20-5.60); RED CELL DISTRI WIDTH 13.2 % (11.5-15.5)
[2019-02-08 20:18] LABS: ALBUMIN 4.6 g/dL (3.2-5.0); ALKALINE PHOSPHATASE 130 u/l (38-126); BUN 8 mg/dL (8-23); BUN/CREATININE RATIO 16 (12-20 (CALC)); CARBON DIOXIDE 24 mmol/l (22-30); CHLORIDE 99 mmol/l (95-108); CREATININE 0.5 mg/dL (0.5-1.0); GFR > 60 ML/MIN (>=60 (CALC)); GFR FOR AFR.AMER. > 60 ML/MIN (>=60 (CALC)); SODIUM 135 mmol/l (137-146)
[2019-02-08 20:19] LABS: ANION GAP 16 (6-22 (CALC)); BILIRUBIN, TOTAL 0.4 mg/dL (0.0-1.4); POTASSIUM 4.1 mmol/l (3.5-5.1); SGOT/AST 121 u/l (9-36)
[2019-02-08 20:29] LABS: MYOGLOBIN 30 ng/mL (0 - 62)
--- NOTE | 2019-02-08 20:34 | NUR ---
PO ASA GIVEN PER MD ORDER.
--- NOTE | 2019-02-08 20:34 | NUR ---
PO ASA IV ANTIEMETIC, IV PAIN MED AND SL NITROGLYCERIN GIVEN PER MD ORDER.
--- NOTE | 2019-02-08 20:37 | NUR ---
IV PAIN MED GIVEN FOR C/O CP.
--- NOTE | 2019-02-08 20:38 | NUR ---
SL NITRO GIVEN PER MD ORDER.
--- NOTE | 2019-02-08 21:17 | NUR ---
IV ABT. GIVEN PER MD ORDER.
--- NOTE | 2019-02-08 21:24 | NUR ---
PT. STATES HER CP IS NOW DECREASED TO A 2 ON A SCALE OF 1-10.
--- NOTE | 2019-02-08 21:45 | NUR ---
IN ROOM TO DISCUSS CLINICAL FINDINGS WITH PT. AND TO ALSO MAKE HER AND HER AWARE THAT SHE WILL ALSO BE ADMITTED, VERBALIZED UNDERSTANDING.
--- NOTE | 2019-02-08 22:36 | NUR ---
Admission Note Report Given to: HERNANDEZ Transported by: Wheelchair X Stretcher Transported with: Nurse Transporter X Patent IV X O2 X Joint Sealer
--- NOTE | 2019-02-08 22:55 | NUR ---
PT. TAKEN TO [facility] [place] VIA STRETCHER, NO C/O.
[2019-02-08 23:14] VITALS: BP 154/86
[2019-02-08 23:42] LABS: URINE BILIRUBIN - DIPSTICK NEGATIVE (NEGATIVE); URINE BLOOD DIPSTICK NEGATIVE (NEGATIVE); URINE COLOR YELLOW; URINE GLUCOSE - DIPSTICK 100 mg/dL (NEGATIVE); URINE KETONE NEGATIVE (NEGATIVE); URINE LEUK ESTERASE NEGATIVE (NEGATIVE); URINE NITRITE - DIPSTICK NEGATIVE (Negative); URINE PROTEIN - DIPSTICK NEGATIVE (NEG-TRACE); URINE SPECIFIC GRAVITY <=1.005; URINE UROBILINOGEN - DIPSTICK 0.2 E.U./dL (0.2)
--- NOTE | 2019-02-09 | NUR ---
PATIENT ADMITTED FROM ER VIA STRETCHER WITH ER STAFF AND S/O IN ATTENDANCE. PATIENT ABLE TO TRANSFER FROM STRETCHER AND AMB TO THE BR TO VOID QS YELLOW URINE. URINE SPEC OBTAINED AND SENT TO LAB. AMB TO THE BED WITH MIN ASSIST. PATIENT IS AWAKE ALERT AND ORIENTEDX3 WITH O2 VIA NASAL CANNULA IN PLACE. PATIENT ADMITTED FOR COPD EXACERBTION AND LACTIC ACIDOSIS. PATIENT WITH IVF BOLUS IN PROGRESS FROM ER VIA RIGHT ARM SITE. SITE IS HEALTHY AT THIS TIME. PATIENT STATES PRODUCTIVE COUGH WITH PHILLIPS SPUTUM. STATES THAT SHE HAS HAD THIS FOR APPROX 1 WEEK. STOPPED SMOKING APPROX 1WEEK AGO. PATIENT SOB WITH EXHERSION. PATIENT WITH DIMINISHED BS THROUGHOUT WITH EXP WHEEZE. PATIENT ORIENTED TO ROOM AND SURROUNDINGS, INSTRUCTED ON USE OF NURSE CALL LIGHT SYSTEM, TV REMOTE AND PHONE. SAFETY PRECAUTIONS REINFORCED WITH PATIENT AND S/O. S/O PROVIDED WITH RECLINER FOR THE NIGHT. CALL LIGHT IN REACH. WILL CONT TO MONITOR.
--- NOTE | 2019-02-09 02:13 | NUR ---
PATIENT RESTING IN BED-CRITICAL LACTIC ACID-4.8. DR. GABRIEL NOTIFIED AND NEW ORDER FOR VANCO 1GM RECIEVED. WILL MEDICATE WHEN PROFILED ON EMAR. WILL CONT TO MONITOR.
[2019-02-09 03:50] VITALS: BP 123/76
[2019-02-09 05:41] LABS: IMMATURE GRANULOCYTES 0.4 % (0.0-5.0); MEAN CORPUSCULAR HGB 31.9 pG CALC (26.0-32.0); MEAN CORPUSCULAR HGB CONC 31.9 g/L CALC (32.0-36.0); NEUT# 8.32 thou/uL (2.00-7.15); RED BLOOD COUNT 3.73 mill/uL (4.20-5.60); RED CELL DISTRI WIDTH 13.2 % (11.5-15.5)
--- NOTE | 2019-02-09 05:58 | NUR ---
RESCIEVED CALL FROM [facility] [place] [facility]-LACTIC ACID 5.0-CALL TO DR. GABRIEL. NO NEW ORDERS AT THIS ITNV.
[2019-02-09 06:01] LABS: HEMATOCRIT 37.3 % (37.0-47.0); HEMOGLOBIN 11.9 g/dl (12.0-16.0)
[2019-02-09 06:19] LABS: ALBUMIN 3.8 g/dL (3.2-5.0); ALKALINE PHOSPHATASE 96 u/l (38-126); BILIRUBIN, TOTAL 0.3 mg/dL (0.0-1.4); BUN 6 mg/dL (8-23); BUN/CREATININE RATIO 15 (12-20 (CALC)); CHLORIDE 106 mmol/l (95-108); CREATININE 0.4 mg/dL (0.5-1.0); GFR > 60 ML/MIN (>=60 (CALC)); GFR FOR AFR.AMER. > 60 ML/MIN (>=60 (CALC)); POTASSIUM 4.5 mmol/l (3.5-5.1); SGOT/AST 74 u/l (9-36); SODIUM 137 mmol/l (137-146)
[2019-02-09 06:30] LABS: ANION GAP 17 (6-22 (CALC)); CARBON DIOXIDE 19 mmol/l (22-30); TOTAL PROTEIN 6.3 g/dL (6.3-8.2)
--- NOTE | 2019-02-09 06:30 | NUR ---
PATIENT RESTING IN BED-IV FOUND DISLODGED WTIH CATH INTACT. NEW IV SITE STARTED TO LEFT FOREARM-#22 GAUGE WITH GOOD BLOOD RETURN. PATIENT C/O SEVERE LEFT SIDED LOW BACK PAIN-9/10 ON PAIN SCALE. MEDICATED WITH LORTAB 5/325MG TABS 2 FOR PAIN. SAFETY PRECAUTIONS REINFORCED, CALL LIGHT IN REACH. WILL CONT TO MONITOR.
[2019-02-09 07:30] VITALS: BP 141/87
--- NOTE | 2019-02-09 07:30 | NUR ---
AWAKE ON ROUNDS. VSS. RESP NON-LABORED AT REST, HERNANDEZ. RA O2 SAT 92%, PLACED ON O2 AT 2 L NC, O2 SAT PICKED UP TO 94% BREATHS SOUNDS DECREASED THROUGHOU WITH FAINT WHEEZES. MOIST NON-PRODUCTIVE COUGH THIS MORNING. INSTURCTED ON SPUTUM SPEC, CUP LEFT AT BEDSIDE. IV IN LFA, SITE BENIGN, NS INFUSES AT 100 ML/HR. DISCUSSED PLAN OF CARE. CALL WARE IN REACH.
--- NOTE | 2019-02-09 12:43 | NUR ---
XANAX GIVEN FOR ANXIETY. PATIENT UPSET AND TEARFUL VERBALIZING ABOUT HEALTH PROBLEMS OVER PAST YEAR. EMOTIONAL SUPPORT AND REASSURANCE PROVIDED.
--- NOTE | 2019-02-09 14:00 | NUR ---
RESTING QUIETLY SINCE XANAX GIVEN EARLIER. STATES SHE FEELS BETTER. AT BEDSIDE.
[2019-02-09 15:00] VITALS: BP 102/66
--- NOTE | 2019-02-09 16:07 | NUR ---
RECEIVED FROM ER VIA STRETCHER. ASSISTED INTO BED. RESP NON-LABORED. LUNGS CLEAR. MIDLINE ABD DSG CDI, ABD BINDER IN PLACE. HYPOACTIVE BOWEL SOUNDS HEARD. SCDS ON BILATERALLY. IV IN RFA WITH LR AT 100 ML/HR. IV SITE BENIGN. ORIENTED TO SURROUNDINGS. EXPLAINED USE OF CALL WARE AND BED CONTROLS.
--- NOTE | 2019-02-09 16:30 | NUR ---
AMBUALTED TO BR WITH MINIMAL ASSIST VOIDS CLEAR YELLOW URINE.
[2019-02-09] MEDS ORDERED: CREON12000 UNT PO (16:42)
--- NOTE | 2019-02-09 17:00 | NUR ---
SPUTUM CUP REMAINS AT BEDISDE. REMINDED PATIENT TO OBTAIN SPEC IF ABLE. IV IN LFA, SITE BENIGN, NS CONTINUES AT 100 ML/HR.
--- NOTE | 2019-02-09 19:30 | NUR ---
PATIENT RESTING IN BED-AWAKE ALERT AND ANXIOUS-CONCERNS REGUARDING MULTIPLE ISSUES INCLUDING CHRONIC LEFT SIDED BACK PAIN. FACE IS SLIGHTLY FLUSHED. SKIN IS WARM AND DRY. IV SITE TO LEFT FOREARM INTACT WITH IVF NS PATENT AND INFUSING AT 100CC/HR. SITE IS HEALTHY AT THIS TIME. TELE MONITOR IN PLACE. PATIENT IS MIN ASSIST UP TO THE BR TO VOID. LUNGS DIMINISHED AND SLIGHT EXP WHEEZE. PATIENT O2 SAT 94% ON RA. TOO EARLY FOR PAIN MEDS AT THIS TIME. SAFETY PRECAUTIONS REINFORED. CALL LIGHT IN REACH. WILL CONT TO MONITOR.
[2019-02-09 20:42] VITALS: BP 113/67
--- NOTE | 2019-02-09 22:14 | NUR ---
2100-PATIENT RESTING IN BED AT THIS TIME AWAK AND ANXIOUS. PATIENT WITH MULTIPLE COMPLAINTS INCLUDING THAT SHE CONT TO HAVE THIS CHRONIC LEFT SIDED BACK PAIN THAT NOBODY IS ADDRESSING. PATIENT ADVISED OF PRN PAIN MEDS AVAILABLE BUT TOO EARLY AT THIS TIME. MEDICATED WITH XANAX FOR ANXIETY AND WITH BACLOFEN FOR SPASMS, LEVEAQUIN HUNG ORDERED VIA LEFT FOREARM IV SITE-SITE REMAINS HEALTHY AT THIS TIME. PATIENT MIN ASSIST TO BR TO VOID YELLOW URINE. BACK TO BED. CALL LIGHT IN REACH. WILL CONT TO MONITOR. 2129-PATIENT CALLED THIS NURSE TO ROOM-STATES THAT HER LEFT FOREARM IV SITE IS ITCHING AND SHE THINKS IT MAY BE THE ANTIBIOTIC. SURROUNDING AREA OF IV SITE IS SLIGHTLY PINK-LEVAQUIN WAS STOPPED AND IVF NS RESTARTED. NO INCREASED SOB NOTED. VS UNCHANGED. CYNTHIA DENNISON HERE AND NOTIFIED OF CURRENT SITUATION-WENT TO ROOM TO ASSESS SITUATION. 2199-PATIENT MEDICATED WITH BENEDRYL 25MG PO ORDERED. WILL CONT TO MONITOR. 2229-LEVAQUIN RESTARTED AND INFUSING SLOWLY AT 50CC/HR VIA LEFT FOREARM SITE. WILL CONT TO MONITOR.
[2019-02-10] VITALS (7 sets, daily range): BP systolic 119–158; BP diastolic 69–94
--- NOTE | 2019-02-10 03:46 | NUR ---
PATIENT RESTING IN BED POSITIONED ON RIGHT SIDE WITH EYES CLOSED AND HOB SLIGHTLY ELEVATED. IVF PATENT AND INFUSING AT 100CC/HR VIA LEFT FOREARM SITE. NO FURTHER C/O ITCHING AFTER MEDICATED WITH BENEDRYL-LEVEQUIN WAS COMPLETED. CALL LIGHT IN REACH. WILL CONT TO MONITOR.
[2019-02-10 05:26] LABS: HEMATOCRIT 35.6 % (37.0-47.0); HEMOGLOBIN 11.3 g/dl (12.0-16.0); IMMATURE GRANULOCYTES 0.3 % (0.0-5.0); MEAN CELL VOLUME 101.1 fL CALC (80.0-100.0); MEAN CORPUSCULAR HGB 32.1 pG CALC (26.0-32.0); MEAN CORPUSCULAR HGB CONC 31.7 g/L CALC (32.0-36.0); NEUT# 7.14 thou/uL (2.00-7.15); RED BLOOD COUNT 3.52 mill/uL (4.20-5.60); RED CELL DISTRI WIDTH 13.5 % (11.5-15.5)
[2019-02-10 05:49] LABS: BUN 9 mg/dL (8-23); BUN/CREATININE RATIO 23 (12-20 (CALC)); CHLORIDE 109 mmol/l (95-108); CREATININE 0.4 mg/dL (0.5-1.0); GFR > 60 ML/MIN (>=60 (CALC)); GFR FOR AFR.AMER. > 60 ML/MIN (>=60 (CALC)); LIPASE 12 u/l (23-300); MAGNESIUM 2.1 mg/dL (1.6-2.3); POTASSIUM 3.6 mmol/l (3.5-5.1); SODIUM 140 mmol/l (137-146)
[2019-02-10 05:52] LABS: ANION GAP 9 (6-22 (CALC)); CARBON DIOXIDE 26 mmol/l (22-30)
--- NOTE | 2019-02-10 06:00 | NUR ---
RECIEVED CALL FROM RONI IN LAB-LACTIC ACID DOWN TO 2.3. TRENDING DOWN FROM LAST READING. WILL CONT TTO MONITOR.
--- NOTE | 2019-02-10 07:50 | NUR ---
ASSESSMENT IS COMPLETED: IV SITE IS FREE FROM REDNESS OR EDEMA. HR IS REG,PULSES ARE STRONG X4, ABD IS SOFT WITH ACTIVE BS. BREATH SOUNDS ARE CLEAR,AND DIMINISHED BILATERALLY. NO C/O SOB. ONLY ON EXERTION. EYES APPEAR TO BE PUFFY. CONTINUE TO OBSERVE AND MONITOR.
--- NOTE | 2019-02-10 09:00 | NUR ---
CALLED HER SISTER IN [place]. WANTING TO FIND OUT WHAT WAS GOING ON EXPLAINED ABOUT PT. SHE HAD THE CODE. THEN SHE CALLED HER SISTER IN THE ROOM AND SPOKE WITH HER THANKING ME FOR THE INFORMATION.
--- NOTE | 2019-02-10 12:10 | NUR ---
PT IS RELAXING IN BED WITH NO DISTRESS NOTED HAS HAD VISITORS, CALVIN TO OBSERVE AND MONITOR
--- NOTE | 2019-02-10 15:11 | NUR ---
PT WAS SEEN TODAY FOR GT. SHE REPORTS EXTREME PAIN ON LOW BACK AND WAS FRUSTRATED OF PAIN. SHE WAS EDUCATED ON THE IMPORTANCE OF MOVEMENT TO PREVENT CRAMPING AND MUSCLE SPASMS. PT WAS ALSO INSTRUCTED ON THORACIC AND LUMBAR STRETCHING TO ADDRESS HER PAIN. BP AND SPO2 WERE CHECKED PRIOR TO TX. BP= 158/87, SPO2= 95% ON ROOM AIR. SHE THEN AMBULATED IN THE [address] WAY ~50 FT X 2 WITH RW AND CGA. NOTED SOB DURING THE ACTIVITIY. SPO2 REMAINED ON 95% POST TX. PT WILL BENEFIT FROM HOME HEALTH P.T. FOR BALANCE AND GAIT TRAINING AND THEREX. [facility]: 14 POINTS.
--- NOTE | 2019-02-10 19:30 | NUR ---
PT LOW FOWLERS POSITION W/TV ON. MEDICATIONS DISCUSSED W/PT AND PO FLUIDS REPLENISHED, PT DENIES ANY OTHER NEEDS AT THIS TIME. CALL LIGHT NEXT TO PT.
--- NOTE | 2019-02-10 21:51 | NUR ---
PT MEDICATED ORDERS PROVIDE AND ASSESSMENT COMPLETED AT THIS TIME. CALL LIGHT W/IN REACH. PT. DENIES ANY OTHER NEEDS AND APPEARS TO BE RETURNING TO SLEEP PRIOR TO MY LEAVING THE ROOM.
--- NOTE | 2019-02-11 00:46 | NUR ---
PT SLEEPING, IV PUMP SOUNDED, IV SITE FLUSHED/SITE APPEARS HEALTHY. PT REPORTED MILD ITCHING AT SITE W/ANTIBOITIC ADMINISTRATION. PT DENIES ANY OTHER NEEDS AT THIS TIME AND REPORTS HAVING BEEN SLEEPING SOUNDLY.
--- NOTE | 2019-02-11 03:00 | NUR ---
PT SLEEPING AT THIS TIME. NO S/O DISTRESS NOTED. CALL LIGHT AT SIDE.
[2019-02-11 04:32] VITALS: BP 142/80
--- NOTE | 2019-02-11 06:29 | NUR ---
PT MEDICATED FOR PAIN REPORTED 8/10 ON PAIN SCALE. NO S/O DISTRESS NOTED. PT COUGHING, JUST COMPLETED BREATHING TREATMENT W/RESP. CALL LIGHT W/IN REACH AND PT ENCOURAGED TO CALL.
[2019-02-11 07:35] VITALS: BP 156/87
--- NOTE | 2019-02-11 07:36 | NUR ---
AWAKE ON ROUNDS. RESP NON-LABORED AT REST. BREATH SOUNDS DECREASED THROUGHOUT WITH SCATTERED WHEEZES. OCC NON-PRODUCTIVE COUGH NOTED. SHIFT ASSESSMENT COMPLETED. SALINE LOCK IN LFA, SITE BENIGN. TELEMTRY SHOWS SR WITH 1 DEGREE AVB PER ED SANITATION LEAD, HR 95. DISCUSSED PLAN OF CARE. CALL WARE IN REACH. DENIES NEEDS AT THIS TIME.
--- NOTE | 2019-02-11 07:57 | NUR ---
Ms Borja is walking independently without the need of her FWW. She is less tremulous but has noted that breathing treatment bring on her tremors. She is without her o2 and is 95% on RA. She should do well to go home with outpatient pulmonary rehab for follow up. I have spoken to her about this and she is agreeable. Am Pac is 15
--- NOTE | 2019-02-11 12:00 | NUR ---
AT BEDSIDE. VSS. PATIENT STATES PAIN PILL HAS HELPED HER.
[2019-02-11 12:57] VITALS: BP 148/81
[2019-02-11] MEDS ORDERED: LEVAQUIN750 MG PO (15:14)
[2019-02-11] MEDS ORDERED: STERAPRED DS10 MG PO (15:15)
[2019-02-11] MEDS ORDERED: LEVALBUTER1.25 MG/3 NEB (15:15)
[2019-02-11] MEDS ORDERED: ZOFRAN4 MG/TAB PO (15:18)
== END 2019-02-11 16:12 | disposition home or self-care (01) ==
LOC: ED 19:30 → ED-I 21:25 → ED 21:58 → MS2 21:59
PROVIDERS: Nurse Practitioner Family; ADMIT Internal Medicine; ATTEND Internal Medicine
DX: J44.1 Chronic obstructive pulmonary disease with (acute) exacerbation (principal); J20.9 Acute bronchitis, unspecified; J44.0 Chronic obstructive pulmonary disease with (acute) lower respiratory infection; R09.02 Hypoxemia; G89.29 Other chronic pain; M62.830 Muscle spasm of back; M62.838 Other muscle spasm; I10 Essential (primary) hypertension; F32.9 Major depressive disorder, single episode, unspecified; F41.9 Anxiety disorder, unspecified; M54.5 Low back pain; K86.1 Other chronic pancreatitis; E87.2 Acidosis; M19.90 Unspecified osteoarthritis, unspecified site; F17.200 Nicotine dependence, unspecified, uncomplicated; Z87.01 Personal history of pneumonia (recurrent)
CPT/HCPCS: G0378; J1956

== ENCOUNTER 2019-02-24 12:19 | Observation (INO) | payer OTHER ==
[~2019-02-24] VITALS: Ht 167.6 cm; Wt 60.0 kg
[~2019-02-24 12:19] MED LIST changes: +CREON12000 UNT PO; +LEVALBUTER1.25 MG/3 NEB; +LEVAQUIN750 MG PO; +STERAPRED DS10 MG PO; +ZOFRAN4 MG/TAB PO
--- NOTE | 2019-02-24 12:19 | NUR ---
PATIENT TO ROOM VIA WHEELCHAIR AND PHYSICIAN AT BEDSIDE FOR EVAL
--- NOTE | 2019-02-24 13:00 | NUR ---
PATIENT REPORTS BEING DISCHARGED FROM [facility] ON 02/11/19. PATIENT CONTINUES TO HAVE EXPIRATORY WHEEZING AFTER BREATHING TREATMENT.
[2019-02-24 13:12] LABS: HEMATOCRIT 38.5 % (37.0-47.0); HEMOGLOBIN 12.9 g/dl (12.0-16.0); IMMATURE GRANULOCYTES 0.3 % (0.0-5.0); MEAN CORPUSCULAR HGB 32.2 pG CALC (26.0-32.0); MEAN CORPUSCULAR HGB CONC 33.5 g/L CALC (32.0-36.0); NEUT# 5.76 thou/uL (2.00-7.15); RED BLOOD COUNT 4.01 mill/uL (4.20-5.60); RED CELL DISTRI WIDTH 12.9 % (11.5-15.5)
[2019-02-24 13:29] LABS: ACT PARTIAL THROMBO TIME 25.7 SECONDS (20.0-32.5); PROTHROMBIN TIME 10.1 SECONDS (9.0-12.5)
[2019-02-24 13:38] LABS: ALBUMIN 4.1 g/dL (3.2-5.0); ALKALINE PHOSPHATASE 97 u/l (38-126); AMYLASE 30 u/l (30-110); ANION GAP 16 (6-22 (CALC)); BILIRUBIN, TOTAL 0.2 mg/dL (0.0-1.4); BUN 7 mg/dL (8-23); BUN/CREATININE RATIO 19 (12-20 (CALC)); CARBON DIOXIDE 21 mmol/l (22-30); CHLORIDE 98 mmol/l (95-108); CREATININE 0.4 mg/dL (0.5-1.0); GFR > 60 ML/MIN (>=60 (CALC)); GFR FOR AFR.AMER. > 60 ML/MIN (>=60 (CALC)); LIPASE 23 u/l (23-300); POTASSIUM 4.2 mmol/l (3.5-5.1); SGOT/AST 66 u/l (9-36)
[2019-02-24 13:42] LABS: SODIUM 131 mmol/l (137-146)
--- NOTE | 2019-02-24 13:54 | NUR ---
AT BEDSIDE TO DISCUSS RESULTS AND PLAN OF CARE.
--- NOTE | 2019-02-24 14:38 | NUR ---
PATIENT REPORTS CHEST PAIN 6/10 AT THIS TIME. UPDATED ON WAIT TIME. VERBAL UNDERSTANDING. VISITORS AT BEDSIDE. WILL CONTINUE TO MONITOR.
--- NOTE | 2019-02-24 15:15 | NUR ---
PATIENT RESTING ON STRETCHER SECOND BREATHING TREATMENT. WILL CONTINUE TO MONITOR.
--- NOTE | 2019-02-24 15:52 | NUR ---
DULCE MARIE CALLED FOR FLOOR ORDERS. STATES PLACING ORDER NOW.
--- NOTE | 2019-02-24 15:54 | NUR ---
ATTEMPT MADE TO CALL REPORT. SPOKE TO LIVIA. NURSE WILL CALL BACK.
--- NOTE | 2019-02-24 16:10 | NUR ---
PATIENT AMBULATES TO AND FROM BATHROOM WITH STEADY GAIT.
--- NOTE | 2019-02-24 16:36 | NUR ---
REPORT CALLED TO MICHEL STEINBERG.
--- NOTE | 2019-02-24 16:40 | NUR ---
PATIENT TRANSPORTED TO [facility] WITH TELE IN PLACE VIA WHEELCHAIR. MICHEL STEINBERG AT BEDSIDE, CARE RELINQUISHED.
--- NOTE | 2019-02-24 16:43 | NUR ---
PT ARRIVED TO MED/SURG ROOM 278 IN STABLE CONDITION VIA WHEELCHAIR ACCOMPANIED BY JANET DORANTES;PT AMBULATED WITH A WEAK GAIT AND 1 PERSON ASSIST TO STANDING SCALE AND BEDSIDE;PT A&O X3,ORIENTED TO ROOM AND CALL LIGHT SYSTEM;PT REPORTS BEING DISCHARGED ON 02/11/19 AND HAVING INCREASED SOB SINCE D/C;PT DENIES ANY CURRENT PAIN OR DISCOMFORTS,PAIN SCALE AND REPORTING EDUCATED;RESPIRATIONS EVEN AND UNLABORED,SHALLOW ON RA.CLEAR LUNGS NOTED WITH WHEEZING AT TIMES;ABDOMEN SOFT ON PALPATION AND ACTIVE IN ALL 4 QUADRANTS,LAST BM 02/24/19;STONG PEDAL PULSES;SKIN INTACT;TELE MONITORING IN PLACE;#18G TO RAC FLUSHED AND PATENT,SITE APPEARS HEALTHY;PT DENIES ANY ADDITIONAL NEEDS AT THIS TIME AND IS ENCOURAGED TO CALL FOR ASSISTANCE IF NEEDED;FALL PRECAUTIONS IN PLACE WITH CALL LIGHT IN REACH;WILL CONTINUE TO MONITOR
[2019-02-24 16:55] VITALS: BP 119/79
--- NOTE | 2019-02-24 19:12 | NUR ---
REPORT FROM MARYAN PEARSON. PT RESTING IN BED WATCHING TV WITH VISITOR AT BEDSIDE. NO APPARENT DISTRESS NOTED. PT DENIES ANY PAIN OR DISCOMFORT AT THIS TIME. REQUESTING SLEEPING PILL STATES SHE TAKES MELATONIN AT HOME, WILL NOTIFIED HEAD SULFIDE OPERATOR PHYSICIAN ABOUT REQUEST. DISCUSSED POC. PT VERBALIZED UNDERSTANDING. CALL LIGHT WITHIN REACH. WILL CONTINUE TO MONITOR.
[2019-02-24 19:13] VITALS: BP 124/59
--- NOTE | 2019-02-24 19:38 | NUR ---
SLEEPING PILL ORDERS RECEIVED FROM COACH OPERATOR PHYSICIAN WILL MEDICATED WHEN AVAILABLE.
[2019-02-24 21:09] VITALS: BP 133/81
--- NOTE | 2019-02-24 21:09 | NUR ---
PT C/O LEFT SIDE CHEST PAIN, WHEN ASKED WHERE PAIN WAS LOCATED PT POSITIONS HAND UNDER LEFT BREAST/RIB CAGE AREA. STATES 8/10 DESCRIBED SHARP PAIN. CURRENT VS 133/81, 103, 94%RA, 20, 99.2. PT RESTLESS. EKG AND TROP ORDERED AT THIS TIME. WILL CONTINUE TO MONITOR.
--- NOTE | 2019-02-24 22:59 | NUR ---
BROOD STATION MANAGER PHYSICIAN NOTIFIED. NO APPARENT CHANGED NOTED TO EKG AND TROP RESULTS WNL. PT MEDICATED WITH PRN TORADOL FOR PAIN. WILL CONTINUE TO MONITOR.
--- NOTE | 2019-02-24 23:32 | NUR ---
PT RESTING QUIETLY IN BED. NO APPARENT DISTRESS NOTED. PT DENIES ANY PAIN AT THIS TIME. WILL CONTINUE TO MONITOR.
[2019-02-24 23:56] VITALS: BP 118/69
--- NOTE | 2019-02-25 03:40 | NUR ---
PT RESTING IN BED. WAKES EASILY. DENIES ANY PAIN OR DISCOMFORT. CALL LIGHT WITHIN REACH. WILL CONTINUE TO MONITOR.
[2019-02-25 03:43] VITALS: BP 112/57
[2019-02-25 05:22] LABS: HEMATOCRIT 39.7 % (37.0-47.0); HEMOGLOBIN 12.8 g/dl (12.0-16.0); IMMATURE GRANULOCYTES 0.7 % (0.0-5.0); MEAN CORPUSCULAR HGB 31.6 pG CALC (26.0-32.0); MEAN CORPUSCULAR HGB CONC 32.2 g/L CALC (32.0-36.0); NEUT# 11.88 thou/uL (2.00-7.15); RED BLOOD COUNT 4.05 mill/uL (4.20-5.60); RED CELL DISTRI WIDTH 13.2 % (11.5-15.5)
[2019-02-25 05:38] LABS: ANION GAP 20 (6-22 (CALC)); BUN 8 mg/dL (8-23); BUN/CREATININE RATIO 18 (12-20 (CALC)); CARBON DIOXIDE 18 mmol/l (22-30); CHLORIDE 102 mmol/l (95-108); CREATININE 0.4 mg/dL (0.5-1.0); GFR > 60 ML/MIN (>=60 (CALC)); GFR FOR AFR.AMER. > 60 ML/MIN (>=60 (CALC)); MAGNESIUM 2.3 mg/dL (1.6-2.3); POTASSIUM 4.4 mmol/l (3.5-5.1); SODIUM 135 mmol/l (137-146)
[2019-02-25 08:00] VITALS: BP 131/68
--- NOTE | 2019-02-25 08:00 | NUR ---
PT IS AWAKE, ALERT, ORIENTED X 3. LUNGS ARE CLEAR ALTHOUGH PT IS DYSPNEIC UPON EXERTION, RA. PT AMBULATORY TO BR WITHOUT ASSIST. PT WITH HEADACHE PAIN, PROVIDED TYLENOL FOR SAME.
--- NOTE | 2019-02-25 09:16 | NUR ---
PT STATES THAT LEVALBUTEROL GIVES HER A HEADACHE. DECLINED TX. CYNTHIA VIRK AWARE.
[2019-02-25 11:51] VITALS: BP 144/82
--- NOTE | 2019-02-25 12:00 | NUR ---
PT WITH HEADACHE PAIN, PROVIDED TORADOL ORDERED. PT CONTINUES TO SHAKE BEFORE, HAS REFUSED RESP TX THINKING IT WAS THE CAUSE.
[2019-02-25] MEDS ORDERED: ALBUTEROL1.25 MG/3 IN (13:47)
[2019-02-25] MEDS ORDERED: FLEXERIL PO (13:48)
[2019-02-25 16:00] VITALS: BP 137/83
--- NOTE | 2019-02-25 16:00 | NUR ---
PT PROVIDED XANAX FOR ANXIETY, NEW ORDER. AN HOUR LATER SHE SAID THAT IT WAS VERY HELPFUL. STILL PAIN TO LOW BACK, PROVIDED LORTAB. PT WITH ADEQUATE PAIN RELIEF.
[2019-02-25 19:19] VITALS: BP 122/60
--- NOTE | 2019-02-25 19:20 | NUR ---
REPORT FROM JAMIL RN. PT RESTING IN BED. ALERT AND ORIENTED, NO APPARENT DISTRESS NOTED. IV SITE APPEARS HEALTHY. DISCUSSED POC. PT VERBALIZED UNDERSTANDING. CALL LIGHT WITHIN REACH. WILL CONTINUE TO MONITOR.
--- NOTE | 2019-02-25 20:15 | NUR ---
PT MEDICATED FROM HEADACHE AND LEFT SIDE PAIN 10/10. NO APPARENT DISTRESS NOTED. PT DENIES ANY FURTHER WANTS OR NEEDS AT THIS TIME. CALL LIGHT WITHIN REACH. WILL CONTINUE TO MONITOR.
[2019-02-26] VITALS: BP 114/72
--- NOTE | 2019-02-26 01:35 | NUR ---
PT RESTING IN BED. C/O HEADACHE 10/24. MEDICATED WITH PRN LORTAB. CALL LIGHT WITHIN REACH. WILL CONTINUE TO MONITOR.
[2019-02-26 04:00] VITALS: BP 130/77
--- NOTE | 2019-02-26 05:28 | NUR ---
RT IN ROOM TO GIVE BREATHING TREATMENT. NO APPARENT DISTRESS NOTED AT THIS TIME.
[2019-02-26 07:55] VITALS: BP 133/82
--- NOTE | 2019-02-26 07:55 | NUR ---
RESTING IN BED ON ROUNDS. DENIES ANY DISCOMFORTS AT THIS TIME. SALINE LOCK INTACT IN RAC, SITE HEALTHY. RESP NON-LABORED AT REST. OCC MOIST, NON-PRODUCTIVE COUGH NOTED. LUNGS CLEAR THROUGHOUT. DISCUSSED PLAN OF CARE. DENIES NEEDS AT THIS TIME. CALL WARE IN REACH.
--- NOTE | 2019-02-26 10:00 | NUR ---
PATIENT UP AND ABOUT IN ROOM AND AMBULATES SHORT DITANCES IN [place]. NO SOB OBSERVED.
[2019-02-26 10:50] VITALS: BP 138/81
--- NOTE | 2019-02-26 12:00 | NUR ---
IN TO VISIT. PATIENT EATING LUNCH. NO C/O VOICED.
[2019-02-26] MEDS ORDERED: LORTAB5 PO (13:28)
[2019-02-26] MEDS ORDERED: PREDNISONE10 MG PO (13:28)
[2019-02-26] MEDS ORDERED: Levaquin PO (13:28)
[2019-02-26] MEDS ORDERED: ALPRAZOLAM0.25 MG PO (13:28)
[2019-02-26] MEDS ORDERED: BIOTUSSIN PO (13:28)
[2019-02-26] MEDS ORDERED: PROAIR HFA108 MCG/AC IN (13:28)
[2019-02-26] MEDS ORDERED: SPIRIVA RE2.5 MCG/AC IN (13:28)
[2019-02-26] MEDS ORDERED: VOLTAREN1%GEL TOP (13:32)
--- NOTE | 2019-02-26 14:45 | NUR ---
Discharge instructions given. Patient verbalizes understanding of same. Discharged in stable condition via Wheelchair to Home with spouse. All belongings sent with pt.
== END 2019-02-26 14:45 | disposition home or self-care (01) ==
LOC: ED 12:19 → ED-I 14:23 → ED 14:49 → MS2 14:50
PROVIDERS: Nurse Practitioner Family; ADMIT Internal Medicine; ATTEND Internal Medicine
DX: J44.1 Chronic obstructive pulmonary disease with (acute) exacerbation (principal); I10 Essential (primary) hypertension; F41.9 Anxiety disorder, unspecified; F32.9 Major depressive disorder, single episode, unspecified; K86.1 Other chronic pancreatitis; Z23 Encounter for immunization; Z87.11 Personal history of peptic ulcer disease; Z87.891 Personal history of nicotine dependence
CPT/HCPCS: G0378

== ENCOUNTER 2020-05-06 14:41 | Observation (INO) | payer OTHER ==
[~2020-05-06] VITALS: Ht 165.1 cm; Wt 65.7 kg
[~2020-05-06 14:41] MED LIST changes: +ALBUTEROL1.25 MG/3 IN; +ALPRAZOLAM0.25 MG PO; +BIOTUSSIN PO; +LORTAB5 PO; +Levaquin PO; +PREDNISONE10 MG PO; +PREDNISONE50 MG PO; +PROAIR HFA108 MCG/AC IN; +SPIRIVA RE2.5 MCG/AC IN; +VOLTAREN1%GEL TOP; +ZPAK PO
[2020-05-06 15:33] LABS: HEMATOCRIT 40.8 % (37.0-47.0); HEMOGLOBIN 13.3 g/dl (12.0-16.0); IMMATURE GRANULOCYTES 0.2 % (0.0-5.0); MEAN CELL VOLUME 98.8 fL CALC (80.0-100.0); MEAN CORPUSCULAR HGB 32.2 pG CALC (26.0-32.0); MEAN CORPUSCULAR HGB CONC 32.6 g/dL CAL (32.0-36.0); NEUT# 4.69 thou/uL (2.00-7.15); RED BLOOD COUNT 4.13 mill/uL (4.20-5.60); RED CELL DISTRI WIDTH 13.1 % (11.5-15.5)
[2020-05-06 15:51] LABS: ALBUMIN 4.6 g/dL (3.2-5.0); ALKALINE PHOSPHATASE 83 u/l (38-126); ANION GAP 16 (6-22 (CALC)); BILIRUBIN, TOTAL 0.6 mg/dL (0.0-1.4); BUN 9 mg/dL (8-23); BUN/CREATININE RATIO 21 (12-20 (CALC)); CARBON DIOXIDE 20 mmol/l (22-30); CHLORIDE 100 mmol/l (95-108); CREATININE 0.4 mg/dL (0.5-1.0); GFR > 60 ML/MIN (>=60 (CALC)); GFR FOR AFR.AMER. > 60 ML/MIN (>=60 (CALC)); POTASSIUM 3.6 mmol/l (3.5-5.1); SGOT/AST 40 u/l (9-36); SODIUM 132 mmol/l (137-146); TOTAL PROTEIN 7.6 g/dL (6.3-8.2)
[2020-05-06 16:03] LABS: MYOGLOBIN 27 ng/mL (0 - 62)
[2020-05-06 17:17] LABS: URINE BILIRUBIN - DIPSTICK NEGATIVE (NEGATIVE); URINE BLOOD DIPSTICK NEGATIVE (NEGATIVE); URINE COLOR YELLOW; URINE GLUCOSE - DIPSTICK NEGATIVE (NEGATIVE); URINE KETONE NEGATIVE (NEGATIVE); URINE LEUK ESTERASE NEGATIVE (NEGATIVE); URINE NITRITE - DIPSTICK NEGATIVE (Negative); URINE PH 5.5 (4.5-8.0); URINE PROTEIN - DIPSTICK NEGATIVE (NEG-TRACE); URINE SPECIFIC GRAVITY <=1.005; URINE UROBILINOGEN - DIPSTICK 0.2 E.U./dL (0.2)
[2020-05-06 18:55] VITALS: BP 156/93
[2020-05-07] VITALS: BP 131/86
[2020-05-07 04:00] VITALS: BP 156/90
[2020-05-07 06:36] LABS: HEMATOCRIT 40.3 % (37.0-47.0); IMMATURE GRANULOCYTES 0.5 % (0.0-5.0); MEAN CORPUSCULAR HGB 32.3 pG CALC (26.0-32.0); MEAN CORPUSCULAR HGB CONC 32.3 g/dL CAL (32.0-36.0); NEUT# 10.86 thou/uL (2.00-7.15); RED BLOOD COUNT 4.03 mill/uL (4.20-5.60); RED CELL DISTRI WIDTH 13.2 % (11.5-15.5)
[2020-05-07 06:49] LABS: ANION GAP 13 (6-22 (CALC)); BUN 10 mg/dL (8-23); BUN/CREATININE RATIO 25 (12-20 (CALC)); CARBON DIOXIDE 20 mmol/l (22-30); CHLORIDE 107 mmol/l (95-108); CREATININE 0.4 mg/dL (0.5-1.0); GFR > 60 ML/MIN (>=60 (CALC)); GFR FOR AFR.AMER. > 60 ML/MIN (>=60 (CALC)); POTASSIUM 4.1 mmol/l (3.5-5.1); SODIUM 135 mmol/l (137-146)
[2020-05-07 07:57] VITALS: BP 153/90
[2020-05-07] MEDS ORDERED: DOXYCYCL HYC100 MG PO (10:53)
[2020-05-07] MEDS ORDERED: LEXAPRO10 MG PO (10:53)
[2020-05-07 11:07] VITALS: BP 156/93
== END 2020-05-07 11:54 | disposition left against medical advice (07) ==
LOC: ED 14:41 → ED-I 16:06 → ED 16:06 → ED-I 17:27 → ED 18:00 → MS2 18:01
PROVIDERS: Emergency Medicine; ADMIT Internal Medicine; ATTEND Internal Medicine
DX: A41.9 Sepsis, unspecified organism (principal); J44.1 Chronic obstructive pulmonary disease with (acute) exacerbation; R07.9 Chest pain, unspecified; F10.10 Alcohol abuse, uncomplicated; I10 Essential (primary) hypertension; F32.9 Major depressive disorder, single episode, unspecified; F41.9 Anxiety disorder, unspecified; F17.200 Nicotine dependence, unspecified, uncomplicated; Z87.11 Personal history of peptic ulcer disease; Z20.822 Contact with and (suspected) exposure to COVID-19
CPT/HCPCS: G0378; J1650

== ENCOUNTER 2021-09-08 19:04 | Observation (INO) | payer OTHER ==
[2021-09-08] VITALS (12 sets, daily range): BP systolic 109–154; BP diastolic 75–113
[~2021-09-08] VITALS: Ht 165.1 cm; Wt 59.0 kg
[~2021-09-08 19:04] MED LIST changes: +DOXYCYCL HYC100 MG PO
--- NOTE | 2021-09-08 19:04 | NUR ---
ARRIVED VIA EMS TO ROOM 13. EMS GAVE DUONEB EN ROUTE AND O2 VIA NC FOR ROOM AIR SAT 94%. AUDIBLE WHEEZING NOTED. PT PRESENTS WITH SOB WITH EXERSION. WILL MONITOR CLOSELY.
--- NOTE | 2021-09-08 19:06 | NUR ---
PHYSICIAN NOTIFIED OF PT STATUS; RT NOTIFIED FOR TX AND ABG
[2021-09-08] MEDS ORDERED: ALBUTEROL SUL0.083 % IN (19:27)
[2021-09-08 19:30] LABS: HEMATOCRIT 45.8 % (37.0-47.0); IMMATURE GRANULOCYTES 0.1 % (0.0-5.0); MEAN CELL VOLUME 99.6 fL CALC (80.0-100.0); MEAN CORPUSCULAR HGB 32.6 pG CALC (26.0-32.0); MEAN CORPUSCULAR HGB CONC 32.8 g/dL CAL (32.0-36.0); NEUT# 6.95 thou/uL (2.00-7.15); RED BLOOD COUNT 4.6 mill/uL (4.20-5.60); RED CELL DISTRI WIDTH 12.6 % (11.5-15.5)
[2021-09-08 19:46] LABS: ALBUMIN 4.5 g/dL (3.2-5.0); ALKALINE PHOSPHATASE 104 u/l (38-126); ANION GAP 12 (6-22 (CALC)); BILIRUBIN, TOTAL 0.5 mg/dL (0.0-1.4); BUN 6 mg/dL (8-23); BUN/CREATININE RATIO 12 (12-20 (CALC)); CARBON DIOXIDE 25 mmol/l (22-30); CHLORIDE 100 mmol/l (95-108); CREATININE 0.5 mg/dL (0.5-1.0); GFR FOR AFR.AMER. > 60 ML/MIN (>=60 (CALC)); GFR OTHER RACES > 60 ML/MIN (>=60 (CALC)); POTASSIUM 4.1 mmol/l (3.5-5.1); SGOT/AST 45 u/l (9-36); SODIUM 133 mmol/l (137-146); TOTAL PROTEIN 7.7 g/dL (6.3-8.2)
[2021-09-08 19:58] LABS: MYOGLOBIN 51 ng/mL (0 - 62)
[2021-09-08 20:21] LABS: URINE BILIRUBIN - DIPSTICK NEGATIVE (NEGATIVE); URINE BLOOD DIPSTICK NEGATIVE (NEGATIVE); URINE COLOR YELLOW; URINE GLUCOSE - DIPSTICK 100 mg/dL (NEGATIVE); URINE KETONE NEGATIVE (NEGATIVE); URINE LEUK ESTERASE NEGATIVE (NEGATIVE); URINE PH 5.5 (4.5-8.0); URINE PROTEIN - DIPSTICK NEGATIVE (NEG-TRACE); URINE SPECIFIC GRAVITY >=1.030; URINE UROBILINOGEN - DIPSTICK 0.2 E.U./dL (0.2)
[2021-09-08 20:24] LABS: URINE NITRITE - DIPSTICK NEGATIVE (Negative)
--- NOTE | 2021-09-08 23:09 | NUR ---
SBAR PRINTED TO FLOOR
--- NOTE | 2021-09-09 00:21 | NUR ---
RECEIVED REPORT FROM ER BY TACOS PECK.
--- NOTE | 2021-09-09 00:34 | NUR ---
Admission Note Report Given to: MARCY Transported by: Wheelchair X Stretcher Transported with: X Nurse Transporter X Patent IV X O2 X Canine Service Instructor Trainer Location: ICU X MS2 TELEBOX 3 IN USE
--- NOTE | 2021-09-09 00:38 | NUR ---
PT DOES NOT KNOW ALL HOME MEDICATIONS AND/OR DOSAGES
--- NOTE | 2021-09-09 00:50 | NUR ---
PATIENT ARRIVE TO UNIT ACCOMPANIED BY ED STAFF. PATIENT ORIENTED TO STAFF AND ROOM, ADMISION ASSESSMENT CONPLETED. PATIETN ADMITED FOR COPD EXACERBATION. PAT HAS A IN TO RAC 22G AND A 20 LFA SL PATENT AND FLUSHING WELL. WHEEZING NOTED BILATERAL. NO WOUNDS NOTED. PATIENT REPORT HAVING A HEADACHE 07/24. PT MEDICATED PER MAY. PT ON OXYGEN 2L/MIN VIA NASAL CANNULA. RESPIRATION EVEN AND UNLABORED. CALL LIGHT IN REACH. BED IN LOWEST POSITION. CONTINIUE RO MONITOR.
[2021-09-09 00:52] VITALS: BP 148/89
--- NOTE | 2021-09-09 04:50 | NUR ---
PATIENT IN BED RESTING WITH EYES CLOSED BREATHING EVEN AND UNLABORED. NO S/S OF DISTRESS NOTED. CALL LIGHT IN REACH. AND BED IN LOWEST POSITION.
[2021-09-09 04:59] VITALS: BP 148/89
[2021-09-09 05:04] LABS: HEMATOCRIT 43.9 % (37.0-47.0); HEMOGLOBIN 14.1 g/dl (12.0-16.0); MEAN CELL VOLUME 99.5 fL CALC (80.0-100.0); MEAN CORPUSCULAR HGB CONC 32.1 g/dL CAL (32.0-36.0); RED BLOOD COUNT 4.41 mill/uL (4.20-5.60); RED CELL DISTRI WIDTH 12.6 % (11.5-15.5)
[2021-09-09 05:21] LABS: ANION GAP 12 (6-22 (CALC)); BUN 7 mg/dL (8-23); BUN/CREATININE RATIO 14 (12-20 (CALC)); CARBON DIOXIDE 23 mmol/l (22-30); CHLORIDE 106 mmol/l (95-108); CREATININE 0.5 mg/dL (0.5-1.0); GFR FOR AFR.AMER. > 60 ML/MIN (>=60 (CALC)); GFR OTHER RACES > 60 ML/MIN (>=60 (CALC)); MAGNESIUM 2.1 mg/dL (1.6-2.3); POTASSIUM 4.4 mmol/l (3.5-5.1); SODIUM 137 mmol/l (137-146)
[2021-09-09 06:33] VITALS: BP 139/74
--- NOTE | 2021-09-09 06:45 | NUR ---
RECEIVED REPORT FROM MICHEL MCLAIN.
--- NOTE | 2021-09-09 08:15 | NUR ---
PT SITTING ON SIDE OF BED; A&O X3. AT BEDSIDE. EVEN AND UNLABORED RESPIRATIONS; WHEEZING THROUGHOUT. O2 @ 2L VIA NASAL CANNULA IN PLACE. TELEMETRY IN PLACE WITH LAST READING SR-89. IV SITES HEALTHY AND PATENT. ACTIVE BOWEL SOUNDS X4 QUADRANTS. SAFETY PRECAUTIONS IN PLACE WITH CALL LIGHT IN REACH.
[2021-09-09] MEDS ORDERED: SPIRIVA HANDIHALER IN (09:02)
[2021-09-09 10:42] VITALS: BP 149/78
[2021-09-09] MEDS ORDERED: AZITHROMYCIN500 MG PO (11:34)
[2021-09-09] MEDS ORDERED: PREDNISONE10 MG PO (11:35)
--- NOTE | 2021-09-09 12:17 | NUR ---
PT SITTING ON RECLINER HAVING LUNCH. NO DISTRESS NOTED. PT DENIES PAIN AT THE MOMENT. NICOTINE PATCH APPLIED ON RIGHT ARM. NO NEEDS AT THE TIME. SAFETY PRECAUTIONS IN PLACE WITH CALL LIGHT IN REACH.
--- NOTE | 2021-09-09 13:19 | NUR ---
PT EDUCATED ON D/C INSTRUCTIONS; PT SHOWED UNDERSTANDING. BOTH IV SITES REMOVED, CATHETERS INTACT UPON REMOVAL. TELEMETRY BOX REMOVED, ER NOTIFIED OF SAME.
--- NOTE | 2021-09-09 13:21 | NUR ---
Discharge instructions given. Patient verbalizes understanding of same. Discharged in stable condition via Wheelchair to Home with staff. All belongings sent with pt. PT LEFT @ [id number].
== END 2021-09-09 13:18 | disposition home or self-care (01) ==
LOC: ED 19:04 → MS2 22:57
PROVIDERS: Hospitalist; ADMIT Emergency Medicine; ATTEND Emergency Medicine
DX: J44.1 Chronic obstructive pulmonary disease with (acute) exacerbation (principal); R09.02 Hypoxemia; I10 Essential (primary) hypertension; K86.1 Other chronic pancreatitis; F10.10 Alcohol abuse, uncomplicated; F41.9 Anxiety disorder, unspecified; F32.A Depression, unspecified; E78.1 Pure hyperglyceridemia; F17.200 Nicotine dependence, unspecified, uncomplicated; Z73.3 Stress, not elsewhere classified; Z87.11 Personal history of peptic ulcer disease; Z20.822 Contact with and (suspected) exposure to COVID-19
CPT/HCPCS: G0378; Q9967

== ENCOUNTER 2022-08-09 19:29 | Emergency (ER) | payer OTHER ==
[~2022-08-09] VITALS: Ht 165.1 cm; Wt 58.0 kg
[~2022-08-09 19:29] MED LIST changes: +ALBUTEROL SUL0.083 % IN; +AZITHROMYCIN500 MG PO; +SPIRIVA HANDIHALER IN
[2022-08-09 21:08] LABS: EOS% 3.8 % (0-8); HEMATOCRIT 41.6 % (37.0-47.0); HEMOGLOBIN 13.5 g/dl (12.0-16.0); IMMATURE GRANULOCYTES 0.1 % (0.0-5.0); LYMPH% 30.8 % (15-41); MEAN CELL VOLUME 96.7 fL CALC (80.0-100.0); MEAN CORPUSCULAR HGB 31.4 pG CALC (26.0-32.0); MEAN CORPUSCULAR HGB CONC 32.5 g/dL CAL (32.0-36.0); MONO% 12.4 % (2-13); NEUT# 3.52 thou/uL (2.00-7.15); NEUT% 51.9 % (42-76); RED BLOOD COUNT 4.3 mill/uL (4.20-5.60); RED CELL DISTRI WIDTH 12.8 % (11.5-15.5)
[2022-08-09 21:20] LABS: ALBUMIN 4.3 g/dL (3.2-5.0); ALKALINE PHOSPHATASE 138 u/l (38-126); ANION GAP 12 (6-22 (CALC)); BILIRUBIN, TOTAL 0.7 mg/dL (0.02-1.3); BUN 10 mg/dL (8-23); BUN/CREATININE RATIO 17 (12-20 (CALC)); CARBON DIOXIDE 22 mmol/l (22-30); CHLORIDE 104 mmol/l (95-108); CREATININE 0.6 mg/dL (0.5-1.0); GFR FOR AFR.AMER. > 60 ML/MIN (>=60 (CALC)); GFR OTHER RACES > 60 ML/MIN (>=60 (CALC)); SODIUM 134 mmol/l (137-146); TOTAL PROTEIN 7.2 g/dL (6.3-8.2)
[2022-08-09 21:21] LABS: SGOT/AST 153 u/l (9-36)
[2022-08-09] MEDS ORDERED: ZPAK PO (22:26)
[2022-08-09] MEDS ORDERED: MEDDOSEPAK PO (22:26)
[2022-08-09 22:36] VITALS: BP 126/77
== END 2022-08-09 22:38 | disposition home or self-care (01) ==
LOC: ED 19:29
PROVIDERS: Emergency Medicine
DX: J44.1 Chronic obstructive pulmonary disease with (acute) exacerbation (principal); I10 Essential (primary) hypertension; Z20.822 Contact with and (suspected) exposure to COVID-19

== ENCOUNTER 2022-11-12 14:26 | Inpatient (IN) | payer OTHER ==
[~2022-11-12] VITALS: Ht 165.1 cm; Wt 56.0 kg
[2022-11-12] VITALS (8 sets, daily range): BP systolic 75–165; BP diastolic 59–93
[~2022-11-12 14:26] MED LIST changes: +MEDDOSEPAK PO
--- NOTE | 2022-11-12 14:26 | NUR ---
PT ARRIVED VIA WHEELCHAIR. PT ABLE TO GET SELF INTO BED. PT IS ALERT AND OX4.RN NOTED A LEFT SIDE ASSYMETRY AND NOTIFIED PROVIDER AND A STROKE ALERT WAS CALLED.
[2022-11-12 15:04] LABS: BASO% 0.2 % (0-3); IMMATURE GRANULOCYTES 0.2 % (0.0-5.0); LYMPH% 9.2 % (15-41); MEAN CELL VOLUME 93.4 fL CALC (80.0-100.0); MEAN CORPUSCULAR HGB 31.7 pG CALC (26.0-32.0); MEAN CORPUSCULAR HGB CONC 33.9 g/dL CAL (32.0-36.0); MONO% 6.5 % (2-13); NEUT# 10.89 thou/uL (2.00-7.15); NEUT% 83.9 % (42-76); RED BLOOD COUNT 5.59 mill/uL (4.20-5.60); RED CELL DISTRI WIDTH 12.5 % (11.5-15.5)
[2022-11-12 15:06] LABS: HEMATOCRIT 52.2 % (37.0-47.0); HEMOGLOBIN 17.7 g/dl (12.0-16.0)
[2022-11-12 15:19] LABS: ALBUMIN 5.1 g/dL (3.2-5.0); CHOLESTEROL HDL RATIO 3.5 (<4.4 (CALC)); POTASSIUM 4.3 mmol/l (3.5-5.1)
[2022-11-12 15:21] LABS: BILIRUBIN, TOTAL 1.3 mg/dL (0.02-1.3); CREATININE 1.8 mg/dL (0.5-1.0); TOTAL PROTEIN 8.9 g/dL (6.3-8.2)
--- NOTE | 2022-11-12 15:30 | NUR ---
PATIENT AWAKE, ALERT AND STABLE. NO DISTRESS NOTED. WILL CONTINUE TO MONITOR.
[2022-11-12 15:32] LABS: INTERNATIONAL NORMALIZED RATIO 1.2 RATIO (0.7-1.3)
--- NOTE | 2022-11-12 16:18 | NUR ---
PATIENT AWAKE, ALERT AND STABLE. NO DISTRESS NOTED. PATIENT STATES HER NAUSEA IS BETTER THAN BEFORE. WILL CONTINUE TO MONITOR.
--- NOTE | 2022-11-12 17:43 | NUR ---
PATIENT RESTING IN BED WITH FAMILY AT BEDSIDE. PATIENT MADE AWARE THAT SHE IS BEING ADMITTED AND PATIENT AGREES WITH THIS. NO DISTRESS NOTED. WILL CONTINUE TO MONITOR.
[2022-11-12 18:13] LABS: URINE BLOOD DIPSTICK Negative (NEGATIVE); URINE GLUCOSE - DIPSTICK 100 mg/dL (NEGATIVE); URINE KETONE Negative (NEGATIVE); URINE LEUK ESTERASE Negative (NEGATIVE); URINE NITRITE - DIPSTICK Negative (Negative); URINE PH 5.5 (4.5-8.0); URINE PROTEIN - DIPSTICK 30 mg/dL (NEG-TRACE); URINE SPECIFIC GRAVITY >=1.030; URINE UROBILINOGEN - DIPSTICK 0.2 E.U./dL (0.2)
[2022-11-12 18:19] LABS: URINE COLOR Yellow; URINE SQUAMOUS EPITHELIAL CELL FEW EPI/hpf (0-FEW)
--- NOTE | 2022-11-12 18:26 | NUR ---
PATIENT AWAKE, ALERT AND STABLE. NO DISTRESS NOTED. PATIENT AMBULATED WITH NURSE TO BATHROOM. PATIENT TOLERATED WELL.
--- NOTE | 2022-11-12 19:30 | NUR ---
PT ASSISTED TO BR FOR BM AND BACK TO ROOM. AMBULATED W/ STEADY GAIT AND W/O DIFFICULTY. RESTING IN BED. RESP EVEN AND UNLABORED. NO DISTRESS NOTED. A&O. INFORMED PT AGAIN OF PLAN OF CARE AND WAIT TIME AND SHE VERBALIZED UNDERSTANDING. CALL LIGHT IN REACH.
--- NOTE | 2022-11-12 20:15 | NUR ---
ATTEMPTED TO GIVE REPORT TO ICU NURSE BUT WAS INFORMED THAT THE NURSE IS RUNNING LATE BUT THEY WILL HAVE THEM CALL US WHEN THEY GET HERE.
--- NOTE | 2022-11-12 21:20 | NUR ---
REPORT GIVEN TO HENRRY PECK AT THIS TIME IN ICU.
--- NOTE | 2022-11-12 21:55 | NUR ---
PT TRANSPORTED TO ICU VIA WHEELCHAIR IN STABLE CONDITION
[2022-11-13] VITALS (37 sets, daily range): BP systolic 121–172; BP diastolic 65–105
--- NOTE | 2022-11-13 | NUR ---
PATIENT SLEEPING, NO ACUTE DISTRESS NOTED. BED LOCKED, IN LOW POSITION, CALL LIGHT WITHIN REACH. WILL CONTINUE TO MONITOR.
--- NOTE | 2022-11-13 | NUR ---
PATIENT SLEEPING. NO ACUTE DISTRESS NOTED. SHE HAS BEEN HAVING SOME LOOSE STOOLS AND NAUSEA. NO S/S OF CVA NOTED.
[2022-11-13 05:48] LABS: MEAN CELL VOLUME 94.6 fL CALC (80.0-100.0); MEAN CORPUSCULAR HGB 32.3 pG CALC (26.0-32.0); MEAN CORPUSCULAR HGB CONC 34.2 g/dL CAL (32.0-36.0); RED BLOOD COUNT 4.67 mill/uL (4.20-5.60); RED CELL DISTRI WIDTH 12.3 % (11.5-15.5)
[2022-11-13 05:57] LABS: ALKALINE PHOSPHATASE 86 u/l (38-126); BUN 32 mg/dL (8-23); CHLORIDE 103 mmol/l (95-108); HDL CHOLESTEROL 59 mg/dL (39.0-59.0); MAGNESIUM 2.3 mg/dL (1.6-2.3); SGOT/AST 38 u/l (9-36); SODIUM 134 mmol/l (137-146); VLDL CHOLESTROL 99 mg/dl (0-48 (CALC))
[2022-11-13 06:06] LABS: ANION GAP 12 (6-22 (CALC)); BUN/CREATININE RATIO 46 (12-20 (CALC)); CARBON DIOXIDE 22 mmol/l (22-30); CHOLESTEROL HDL RATIO 3.7 (<4.4 (CALC)); CREATININE 0.7 mg/dL (0.5-1.0); GFR FOR AFR.AMER. > 60 ML/MIN (>=60 (CALC)); GFR OTHER RACES > 60 ML/MIN (>=60 (CALC)); POTASSIUM 3.3 mmol/l (3.5-5.1); TOTAL CHOLESTEROL 218 mg/dl (0-199); TOTAL PROTEIN 6.9 g/dL (6.3-8.2); TOTAL TRIGLYCERIDES 497 mg/dl (0-149)
[2022-11-13 06:23] LABS: HEMATOCRIT 44.2 % (37.0-47.0); HEMOGLOBIN 15.1 g/dl (12.0-16.0)
--- NOTE | 2022-11-13 07:00 | NUR ---
REPORT GIVEN TO ONCOMING NURSE.
--- NOTE | 2022-11-13 08:00 | NUR ---
REPORT RECIEVED FROM NIGHT RN. PT ADMITTED DUE TO NEW DIAGNOSIS OF DM, WELL DEYSI/DEHYDRATION AND CVA. CT WAS NEGATIVE. PT HAS NIH OF 0. PT IS A/O. LUNGS CLEAR; PT IS ON RA. OCCASIONAL COUGH NOTED. ABDOMEN SOFT/TENDER. BOWEL SOUNDS ACTIVE. PT HAVING FREQUENT EPISODES OF DIARRHEA. PULSES STRONG ALL EXTREMETIES. SKIN W/D/I. CALL LIGHT IN REACH. VSS.
--- NOTE | 2022-11-13 10:00 | NUR ---
PT HAS BEEN USING RESTROOM AND BEDSIDE COMMODE FOR LOOSE STOOLS. PT REPORTS ABDOMINAL DISCOMFORT. PT ALSO STATED THAT SHE HAS CHRONIC PANCREATITIS. PT DENIED ANY NEEDS AT THIS TIME. CALL LIGHT IN REACH.
--- NOTE | 2022-11-13 12:00 | NUR ---
PHONE CALL RECIEVED FROM MRI REPORTING THAT PT WAS UNABLE TO COMPLETE MRI DUE TO CLAUSTROPHOBIA. PHONE CALL PLACED TO DR. WINTERS TO REQUEST MEDICATION FOR ANXIETY. MRI PHONED BACK IMMEDIATELY AFTER SPEAKING WITH DR. WINTERS AND REPORTED THAT PT WAS REFUSING MRI EVEN WITH MEDICATION. PT BROUGHT BACK TO ICU BY WHEELCHAIR AND GIVEN LUNCH TRAY.
--- NOTE | 2022-11-13 14:00 | NUR ---
PT LYING IN BED. REPORTS STILL HAVING LIQUID STOOL. PT STILL ATTEMPTING TO NIBBLE ON LUNCH. CALL LIGHT IN REACH. VSS.
--- NOTE | 2022-11-13 14:51 | NUR ---
AT BEDSIDE TO SPEAK WITH PT.
--- NOTE | 2022-11-13 15:29 | NUR ---
TELE-NEURO CONSULT COMPLETED. PHONE CALL PLACED TO DR. WINTERS TO INFORM HIM OF NEUROLOGISTS REQUESTS FOR MRI AND MRA.
--- NOTE | 2022-11-13 16:06 | NUR ---
PT LYING IN BED. AT BEDSIDE. CALL LIGHT IN REACH. VSS.
--- NOTE | 2022-11-13 19:00 | NUR ---
REPORT RECEIVED FROM OFF GOING NURSE.
--- NOTE | 2022-11-13 20:00 | NUR ---
PATIENT LYING IN BED WITH NO ACUTE DISTRESS NOTED. ASSESSMENT COMPLETED. SHE IS ALERT AND ORIENTED X3. VSS. HER LUNGS ARE CLEAR TO AUSCULTATION. BOWEL SOUNDS ACTIVE IN ALL FOUR QUADS. SKIN INTACT. SHE DENIES ANY PAIN OR DISCOMFORT. SHE STATED THAT SHE DOES NOT SLEEP VERY WELL, MD WAS CALLED. ORDER WAS RECEIVED FOR SLEEPING MEDICATION. BED LOCKED, IN LOW POSITION. CALL LIGHT WITHIN REACH. WILL CONTINUE TO MONITOR.
[2022-11-14] VITALS (13 sets, daily range): BP systolic 126–150; BP diastolic 66–109
--- NOTE | 2022-11-14 | NUR ---
PATIENT SLEEPING WITH NO ACUTE DISTRESS NOTE. VSS. BED LOCKED, IN LOW POSITION, CALL LIGHT WITHIN REACH. WILL CONTINUE TO MONITOR.
--- NOTE | 2022-11-14 04:00 | NUR ---
PATIENT SLEEPING WITH NO ACUTE DISTRESS NOTED. CALL LIGHT WITHIN REACH.
--- NOTE | 2022-11-14 05:04 | NUR ---
PATIENT UP WORRIED ABOUT TODAY MRI.
[2022-11-14 06:06] LABS: HEMATOCRIT 39.7 % (37.0-47.0); HEMOGLOBIN 13.2 g/dl (12.0-16.0); MEAN CELL VOLUME 97.1 fL CALC (80.0-100.0); MEAN CORPUSCULAR HGB 32.3 pG CALC (26.0-32.0); MEAN CORPUSCULAR HGB CONC 33.2 g/dL CAL (32.0-36.0); RED BLOOD COUNT 4.09 mill/uL (4.20-5.60)
[2022-11-14 06:11] LABS: ALBUMIN 3.3 g/dL (3.2-5.0); ALKALINE PHOSPHATASE 79 u/l (38-126); ANION GAP 8 (6-22 (CALC)); BUN 16 mg/dL (8-23); BUN/CREATININE RATIO 23 (12-20 (CALC)); CARBON DIOXIDE 24 mmol/l (22-30); CHLORIDE 108 mmol/l (95-108); CREATININE 0.7 mg/dL (0.5-1.0); GFR FOR AFR.AMER. > 60 ML/MIN (>=60 (CALC)); GFR OTHER RACES > 60 ML/MIN (>=60 (CALC)); POTASSIUM 3.6 mmol/l (3.5-5.1); SGOT/AST 37 u/l (9-36); SODIUM 136 mmol/l (137-146); TOTAL PROTEIN 5.8 g/dL (6.3-8.2)
[2022-11-14 06:19] LABS: BILIRUBIN, TOTAL 0.4 mg/dL (0.02-1.3)
--- NOTE | 2022-11-14 07:00 | NUR ---
BEDSIDE REPORT RECEIVED FROM CISCO CARRENO. PT RESTING IN BED WITH EYES CLOSED. ALL SAFETY MEASURES IN PLACE. VSS. PT IS REQUESTING ANXIETY MEDICATION. STATES PHYSICIAN PROMISED TO ADD. STILL REFUSES MRI.
--- NOTE | 2022-11-14 10:22 | NUR ---
PT SAYS WILL NOT HAVE MRI. RADIOLOGY AND PHYSICIAN INFORMED. MD PRESCRIBED 0.25 MG XANAX FOR ANXIETY. FIRST DOSE GIVEN.
--- NOTE | 2022-11-14 12:49 | NUR ---
PT REQUESTING TO BE MOVED TO MED SURG SO SHE CAN "HAVE MY PRIVACY". ASSURED HER THAT WHEN BEDS WERE AVAILABLE SHE WOULD BE MOVED.
[2022-11-14] MEDS ORDERED: CREON1 CAP PO (13:50)
[2022-11-14] MEDS ORDERED: ASPIRIN ADULT L81 M2 PO (14:16)
--- NOTE | 2022-11-14 14:16 | NUR ---
PT IS REFUSING HEPARIN SQ BECAUSE THE MD DID NOT DISCUSS IT WITH HER FIRST. SHE IS WAITING FOR HER PRESCRIPTIONS AND TO BE SENT HOME. EDUCATED ON VTE PROPHYLAXIS.
== END 2022-11-14 15:55 | disposition home or self-care (01) | DRG 69 ==
LOC: ED 14:26 → ED-I 18:18 → ED 18:36 → ICU 18:37
PROVIDERS: Family Medicine; Nurse Practitioner; Student in an Organized Health Care Education/Training Program; ADMIT Student in an Organized Health Care Education/Training Program; ATTEND Student in an Organized Health Care Education/Training Program
DX: G45.9 Transient cerebral ischemic attack, unspecified (principal); K85.90 Acute pancreatitis without necrosis or infection, unspecified; N17.9 Acute kidney failure, unspecified; K86.1 Other chronic pancreatitis; E78.5 Hyperlipidemia, unspecified; I10 Essential (primary) hypertension; E11.9 Type 2 diabetes mellitus without complications; J43.9 Emphysema, unspecified; F41.9 Anxiety disorder, unspecified; F31.9 Bipolar disorder, unspecified; F17.200 Nicotine dependence, unspecified, uncomplicated; F10.10 Alcohol abuse, uncomplicated; Z87.11 Personal history of peptic ulcer disease; Z20.822 Contact with and (suspected) exposure to COVID-19
CPT/HCPCS: S0164

== ENCOUNTER 2023-09-07 20:32 | Emergency (ER) | payer OTHER ==
[~2023-09-07] VITALS: Ht 162.6 cm; Wt 58.0 kg
[~2023-09-07 20:32] MED LIST changes: +ASPIRIN ADULT L81 M2 PO; +CREON1 CAP PO; +DIGOXIN0.125 MG PO; +DILTIAZEM HCL60 MG PO; +ELIQUIS5 MG PO; +HUMALOG100 UNIT SC; +LEVEMIR100 UNIT SC; +LORTAB 7.57.5 MG PO; +MEDROL DOSEPAK4 MG PO; +XANAX0.25 MG PO
[2023-09-07 20:42] VITALS: BP 133/91
[2023-09-07] MEDS ORDERED: KETOROLAC TROMETHAMINE 30 MG/ML SDV IV ONE (21:00)
[2023-09-07] MEDS ORDERED: SODIUM CHLORIDE 0.9% 1,000 ML IV ONE (21:00)
[2023-09-07] MEDS ORDERED: Acetaminophen 300 MG/Codeine 30 MG/COMBO PO ONE (21:00)
[2023-09-07 21:01] VITALS: BP 125/70
[2023-09-07 21:18] LABS: BASO% 0.6 % (0-3); EOS% 2.9 % (0-8); HEMATOCRIT 39.4 % (37.0-47.0); HEMOGLOBIN 12.8 g/dl (12.0-16.0); IMMATURE GRANULOCYTES 0.2 % (0.0-5.0); LYMPH% 15.2 % (15-41); MEAN CELL VOLUME 95.9 fL CALC (80.0-100.0); MEAN CORPUSCULAR HGB 31.1 pG CALC (26.0-32.0); MEAN CORPUSCULAR HGB CONC 32.5 g/dL CAL (32.0-36.0); MONO% 17.1 % (2-13); NEUT# 5.57 thou/uL (2.00-7.15); RED BLOOD COUNT 4.11 mill/uL (4.20-5.60)
[2023-09-07 21:30] VITALS: BP 100/83
[2023-09-07 21:49] LABS: ALBUMIN 3.7 g/dL (3.2-5.0); BILIRUBIN, TOTAL 0.2 mg/dL (0.02-1.3); CREATININE 0.5 mg/dL (0.5-1.0); MAGNESIUM 2.3 mg/dL (1.6-2.3); POTASSIUM 3.9 mmol/l (3.5-5.1); TOTAL PROTEIN 6.5 g/dL (6.3-8.2)
[2023-09-07] MEDS ORDERED: INSULIN REGULAR (HUMAN) 100 UNIT/ML INJ SC ONE (22:05)
[2023-09-07 22:30] VITALS: BP 101/66
[2023-09-07] MEDS ORDERED: LACTATED RINGER'S 1,000 ML IV ONE (22:45)
[2023-09-07 22:59] LABS: URINE BILIRUBIN - DIPSTICK Negative (NEGATIVE); URINE BLOOD DIPSTICK Trace-lysed (NEGATIVE); URINE GLUCOSE - DIPSTICK >=1000 mg/dL (NEGATIVE); URINE KETONE Negative (NEGATIVE); URINE NITRITE - DIPSTICK Negative (Negative); URINE PH 5.5 (4.5-8.0); URINE PROTEIN - DIPSTICK Negative (NEG-TRACE); URINE SPECIFIC GRAVITY <=1.005; URINE UROBILINOGEN - DIPSTICK 0.2 E.U./dL (0.2)
[2023-09-07 23:00] VITALS: BP 107/68
[2023-09-07 23:00] LABS: URINE COLOR Yellow; URINE LEUK ESTERASE Small (NEGATIVE)
[2023-09-07 23:01] LABS: URINE RBC 0-2 RBC/hpf (0-5); URINE SQUAMOUS EPITHELIAL CELL RARE EPI/hpf (0-FEW); URINE WBC 0-2 WBC/hpf (0-5)
[2023-09-07] MEDS ORDERED: TYLENOL # 31 TA1 PO (23:14)
[2023-09-07] MEDS ORDERED: oxyCODONE HCL ER 10 MG/TAB PO ONE (23:20)
[2023-09-07 23:30] VITALS: BP 107/68
== END 2023-09-07 23:30 | disposition home or self-care (01) ==
LOC: ED 20:32
PROVIDERS: Family Medicine
DX: M54.50 Low back pain, unspecified (principal); E11.9 Type 2 diabetes mellitus without complications; I10 Essential (primary) hypertension; F32.A Depression, unspecified; F10.129 Alcohol abuse with intoxication, unspecified; F17.200 Nicotine dependence, unspecified, uncomplicated; Y90.5 Blood alcohol level of 100-119 mg/100 ml; Z79.4 Long term (current) use of insulin; W18.30XA Fall on same level, unspecified, initial encounter

== ENCOUNTER 2023-11-03 21:56 | Emergency (ER) | payer OTHER ==
[~2023-11-03] VITALS: Ht 162.6 cm; Wt 60.0 kg
[~2023-11-03 21:56] MED LIST changes: +TYLENOL # 31 TA1 PO
[2023-11-03 22:08] VITALS: BP 134/86
[2023-11-03 22:15] VITALS: BP 143/80
[2023-11-03] MEDS ORDERED: KETOROLAC TROMETHAMINE 30 MG/ML SDV IV ONE (22:20)
[2023-11-03] MEDS ORDERED: ACETAMINOPHEN 500 MG TAB PO ONE (22:20)
[2023-11-03] MEDS ORDERED: IPRATROPIUM-Albuterol 0.5MG-2.5MG/3 ML NEB ONE (22:35)
[2023-11-03 23:11] LABS: BASO% 0.4 % (0-3); EOS% 0.6 % (0-8); HEMATOCRIT 40.3 % (37.0-47.0); HEMOGLOBIN 12.8 g/dl (12.0-16.0); IMMATURE GRANULOCYTES 0.7 % (0.0-5.0); LYMPH% 24.2 % (15-41); MEAN CORPUSCULAR HGB 29.2 pG CALC (26.0-32.0); MEAN CORPUSCULAR HGB CONC 31.8 g/dL CAL (32.0-36.0); MONO% 12.9 % (2-13); NEUT# 5.76 thou/uL (2.00-7.15); NEUT% 61.2 % (42-76); RED BLOOD COUNT 4.38 mill/uL (4.20-5.60); RED CELL DISTRI WIDTH 14.5 % (11.5-15.5)
[2023-11-03 23:26] LABS: ALBUMIN 4.4 g/dL (3.2-5.0); BILIRUBIN, TOTAL 0.5 mg/dL (0.02-1.3); CREATININE 0.6 mg/dL (0.5-1.0); POTASSIUM 3.5 mmol/l (3.5-5.1); TOTAL PROTEIN 7.4 g/dL (6.3-8.2)
[2023-11-03] MEDS ORDERED: oxyCODONE HCL 5 MG/TAB PO ONE (23:50)
[2023-11-03] MEDS ORDERED: SODIUM CHLORIDE 0.9% 1,000 ML IV ONE (23:50)
[2023-11-04] MEDS ORDERED: VISTARIL25 MG PO (00:41)
[2023-11-04 00:44] VITALS: BP 143/80
== END 2023-11-04 01:11 | disposition home or self-care (01) ==
LOC: ED 21:56
PROVIDERS: Family Medicine
DX: M54.50 Low back pain, unspecified (principal); M54.6 Pain in thoracic spine; F10.129 Alcohol abuse with intoxication, unspecified; Y90.5 Blood alcohol level of 100-119 mg/100 ml; I10 Essential (primary) hypertension; E11.9 Type 2 diabetes mellitus without complications; F32.A Depression, unspecified; F17.200 Nicotine dependence, unspecified, uncomplicated; Z79.4 Long term (current) use of insulin

== ENCOUNTER 2023-11-27 14:05 | Observation (INO) | payer OTHER ==
[~2023-11-27] VITALS: Ht 162.6 cm; Wt 72.6 kg
[2023-11-27] VITALS (12 sets, daily range): BP systolic 104–131; BP diastolic 54–88
[~2023-11-27 14:05] MED LIST changes: +VISTARIL25 MG PO
--- NOTE | 2023-11-27 14:32 | NUR ---
FIRSET CONTACT WITH PATIENT
[2023-11-27 14:43] LABS: BASO% 0.5 % (0-3); EOS% 1.9 % (0-8); HEMATOCRIT 38.2 % (37.0-47.0); HEMOGLOBIN 12.3 g/dl (12.0-16.0); IMMATURE GRANULOCYTES 0.2 % (0.0-5.0); LYMPH% 22.1 % (15-41); MEAN CORPUSCULAR HGB 29.6 pG CALC (26.0-32.0); MEAN CORPUSCULAR HGB CONC 32.2 g/dL CAL (32.0-36.0); MONO% 11.6 % (2-13); NEUT# 4.06 thou/uL (2.00-7.15); NEUT% 63.7 % (42-76); RED BLOOD COUNT 4.15 mill/uL (4.20-5.60); RED CELL DISTRI WIDTH 15.4 % (11.5-15.5)
[2023-11-27 14:55] LABS: ALBUMIN 4.1 g/dL (3.2-5.0); ALKALINE PHOSPHATASE 91 u/l (38-126); ANION GAP 11 (6-22 (CALC)); BILIRUBIN, TOTAL 0.2 mg/dL (0.02-1.3); BUN 10 mg/dL (8-23); BUN/CREATININE RATIO 18 (12-20 (CALC)); CARBON DIOXIDE 25 mmol/l (22-30); CHLORIDE 102 mmol/l (95-108); CREATININE 0.5 mg/dL (0.5-1.0); ESTIMATED GFR 100 ML/MIN (>=90 (CALC)); POTASSIUM 3.8 mmol/l (3.5-5.1); SGOT/AST 38 u/l (9-36); SODIUM 135 mmol/l (137-146); TOTAL PROTEIN 6.8 g/dL (6.3-8.2)
--- NOTE | 2023-11-27 15:12 | NUR ---
DR SALGUERO BEDSIDE SIDE TO ANSWER ADDITIONAL QUESTIONS FOR PATIENT AND REINFORCE CURRENT PPOC. PATIENT TELLS NURSE REPEATEDLY THAT SHE WILL CALL DR ZHU HERSELF.
[2023-11-27] MEDS ORDERED: MORPHINE SULFATE 4 MG/ML VIAL IV ONE (15:25)
[2023-11-27] MEDS ORDERED: ONDANSETRON HCl 4 MG/2 ML SDV IV ONE (15:25)
--- NOTE | 2023-11-27 16:33 | NUR ---
PATIETN RESTING WITH EYES CLOSED
[2023-11-27] MEDS ORDERED: SYMBICORT1 AE1 IN (16:55)
[2023-11-27] MEDS ORDERED: HYDROcodone 7.5 MG/Acetaminophen 325 MG/COMBO PO PRN (17:40)
[2023-11-27] MEDS ORDERED: ACETAMINOPHEN 325 MG/TAB PO PRN (17:40)
[2023-11-27] MEDS ORDERED: ALPRAZolam 0.25 MG PO PRN (17:40)
[2023-11-27] MEDS ORDERED: Zaleplon 5 MG/CAP PO PRN (17:40)
[2023-11-27] MEDS ORDERED: MAGNESIUM HYDROXIDE 30 ML UDC PO PRN (17:40)
[2023-11-27] MEDS ORDERED: IPRATROPIUM-Albuterol 0.5MG-2.5MG/3 ML NEB ONE (17:45)
[2023-11-27] MEDS ORDERED: IPRATROPIUM-Albuterol 0.5MG-2.5MG/3 ML NEB PRN (17:45)
--- NOTE | 2023-11-27 18:24 | NUR ---
ROOM 268 CLEANED
--- NOTE | 2023-11-27 19:03 | NUR ---
PATIENT TELLS CHARGE NURSE SHE WANTS TO GO HOME.
--- NOTE | 2023-11-27 19:04 | NUR ---
Patient decides to leave AMA. Multiple attempts made to ecourage patient to remain here for continued treatment. Explained to patient all risks of leaving against medical advice including . Pt verbalized understanding of all risks. Pt also encouraged to return to [facility] at any time, especially if symptoms continue or become worse. Pt verbalized understanding.
[2023-11-27] MEDS ORDERED: ENOXAPARIN SODIUM 40 MG/0.4 ML SYR SC SCH (21:00)
[2023-11-27] MEDS ORDERED: APIXABAN BASE 5 MG TAB PO SCH (21:00)
[2023-11-27] MEDS ORDERED: INSULIN LISPRO 100 UNITS/ML ML SC SCH (21:00)
[2023-11-28] MEDS ORDERED: PANCREATIC ENZYMES 12 000 UNITS LIPASE PO SCH (07:30)
[2023-11-28] MEDS ORDERED: PANTOPRAZOLE SODIUM Sesquihydr 40 MG/TAB PO SCH (09:00)
[2023-11-28] MEDS ORDERED: INSULIN DETEMIR 100 UNITS/ML SC SCH (09:00)
[2023-11-28] MEDS ORDERED: ASPIRIN EC 81 MG/TAB PO SCH (09:00)
[2023-11-28] MEDS ORDERED: LOSARTAN Potassium 25 MG/TAB PO SCH (09:00)
[2023-11-29] MEDS ORDERED: DILT-XR120 MG PO (13:38)
[2023-11-30] MEDS ORDERED: LORTAB 7.57.5 MG PO (10:55)
== END 2023-11-27 19:04 | disposition left against medical advice (07) ==
LOC: ED 14:05 → ED-I 15:40 → ED 15:40 → MS2 17:37
PROVIDERS: Family Medicine; ADMIT Internal Medicine; ATTEND Internal Medicine
DX: R07.9 Chest pain, unspecified (principal); R06.02 Shortness of breath; I10 Essential (primary) hypertension; J44.9 Chronic obstructive pulmonary disease, unspecified; E11.9 Type 2 diabetes mellitus without complications; K86.1 Other chronic pancreatitis; F10.10 Alcohol abuse, uncomplicated; Z79.4 Long term (current) use of insulin; Z87.11 Personal history of peptic ulcer disease; Z87.891 Personal history of nicotine dependence; Z20.822 Contact with and (suspected) exposure to COVID-19

== ENCOUNTER 2023-12-13 21:26 | Emergency (ER) | payer OTHER ==
[~2023-12-13] VITALS: Ht 165.1 cm; Wt 68.0 kg
[~2023-12-13 21:26] MED LIST changes: +DILT-XR120 MG PO; +SYMBICORT1 AE1 IN
[2023-12-13 21:32] VITALS: BP 104/56
[2023-12-13 22:00] VITALS: BP 116/67
[2023-12-13] MEDS ORDERED: PERMETHRIN5 % EX (23:13)
[2023-12-13 23:56] VITALS: BP 116/67
== END 2023-12-13 23:56 | disposition left against medical advice (07) ==
LOC: ED 21:26
DX: J44.1 Chronic obstructive pulmonary disease with (acute) exacerbation (principal); B86 Scabies; E11.9 Type 2 diabetes mellitus without complications; I10 Essential (primary) hypertension; F10.10 Alcohol abuse, uncomplicated; F41.9 Anxiety disorder, unspecified; F32.A Depression, unspecified; E78.1 Pure hyperglyceridemia; Z79.4 Long term (current) use of insulin; Z87.11 Personal history of peptic ulcer disease; Z53.29 Procedure and treatment not carried out because of patient's decision for other reasons

== ENCOUNTER 2023-12-26 18:51 | Emergency (ER) | payer OTHER ==
[~2023-12-26] VITALS: Ht 165.1 cm; Wt 61.0 kg
[~2023-12-26 18:51] MED LIST changes: +PERMETHRIN5 % EX
[2023-12-26 19:16] VITALS: BP 125/80
[2023-12-26 19:28] LABS: BASO% 0.4 % (0-3); EOS% 1.1 % (0-8); HEMATOCRIT 37.9 % (37.0-47.0); HEMOGLOBIN 12.4 g/dl (12.0-16.0); IMMATURE GRANULOCYTES 0.1 % (0.0-5.0); LYMPH% 16.6 % (15-41); MEAN CELL VOLUME 89.6 fL CALC (80.0-100.0); MEAN CORPUSCULAR HGB 29.3 pG CALC (26.0-32.0); MEAN CORPUSCULAR HGB CONC 32.7 g/dL CAL (32.0-36.0); MONO% 8.9 % (2-13); NEUT# 6.84 thou/uL (2.00-7.15); NEUT% 72.9 % (42-76); RED BLOOD COUNT 4.23 mill/uL (4.20-5.60)
[2023-12-26 19:30] VITALS: BP 119/75
[2023-12-26] MEDS ORDERED: ASPIRIN 81 MG/TAB PO ONE (19:35)
[2023-12-26 19:43] LABS: ALBUMIN 4.3 g/dL (3.2-5.0); ALKALINE PHOSPHATASE 82 u/l (38-126); BILIRUBIN, TOTAL 0.5 mg/dL (0.02-1.3); BUN 8 mg/dL (8-23); BUN/CREATININE RATIO 16 (12-20 (CALC)); CHLORIDE 99 mmol/l (95-108); CREATININE 0.5 mg/dL (0.5-1.0); ESTIMATED GFR 100 ML/MIN (>=90 (CALC)); LIPASE 15 u/l (23-300); POTASSIUM 3.6 mmol/l (3.5-5.1); SGOT/AST 50 u/l (9-36)
[2023-12-26 19:45] VITALS: BP 132/79
[2023-12-26 19:46] LABS: ANION GAP 9 (6-22 (CALC)); CARBON DIOXIDE 25 mmol/l (22-30); SODIUM 129 mmol/l (137-146)
[2023-12-26] MEDS ORDERED: NITROGLYCERIN 0.4 MG/TAB SL ONE (19:55)
[2023-12-26 20:00] VITALS: BP 130/75
[2023-12-26 20:13] VITALS: BP 130/75
== END 2023-12-26 20:15 | disposition left against medical advice (07) ==
LOC: ED 18:51
PROVIDERS: Nurse Practitioner
DX: R07.9 Chest pain, unspecified (principal); F10.129 Alcohol abuse with intoxication, unspecified; I10 Essential (primary) hypertension; E11.9 Type 2 diabetes mellitus without complications; I25.10 Atherosclerotic heart disease of native coronary artery without angina pectoris; E78.5 Hyperlipidemia, unspecified; J43.9 Emphysema, unspecified; I48.20 Chronic atrial fibrillation, unspecified; F41.9 Anxiety disorder, unspecified; F32.A Depression, unspecified; Y90.6 Blood alcohol level of 120-199 mg/100 ml; Z79.4 Long term (current) use of insulin; Z87.11 Personal history of peptic ulcer disease; Z53.29 Procedure and treatment not carried out because of patient's decision for other reasons

== ENCOUNTER 2024-02-27 21:17 | Emergency (ER) | payer OTHER ==
[~2024-02-27] VITALS: Ht 165.1 cm; Wt 63.5 kg
[2024-02-27 21:30] VITALS: BP 119/62
[2024-02-27] MEDS ORDERED: ISOVUE-300 (Iopamidol) 100 ML SDV IV ONE (21:35)
[2024-02-27] MEDS ORDERED: oxyCODONE 5MG/ ACETAMINOPHEN 325MG TAB PO ONE (21:40)
[2024-02-27 21:45] VITALS: BP 114/68
[2024-02-27 22:00] VITALS: BP 103/63
[2024-02-27 22:19] LABS: BASO% 0.4 % (0-3); EOS% 1.1 % (0-8); HEMATOCRIT 32.9 % (37.0-47.0); IMMATURE GRANULOCYTES 0.3 % (0.0-5.0); LYMPH% 20.3 % (15-41); MEAN CELL VOLUME 89.4 fL CALC (80.0-100.0); MEAN CORPUSCULAR HGB 28.3 pG CALC (26.0-32.0); MEAN CORPUSCULAR HGB CONC 31.6 g/dL CAL (32.0-36.0); MONO% 11.2 % (2-13); NEUT# 4.76 thou/uL (2.00-7.15); NEUT% 66.7 % (42-76); RED BLOOD COUNT 3.68 mill/uL (4.20-5.60); RED CELL DISTRI WIDTH 15.8 % (11.5-15.5)
[2024-02-27 22:22] LABS: HEMOGLOBIN 10.4 g/dl (12.0-16.0)
[2024-02-27 22:30] VITALS: BP 94/61
[2024-02-27 22:37] LABS: ACT PARTIAL THROMBO TIME 31.9 SECONDS (20.0-32.5)
[2024-02-27 22:45] VITALS: BP 110/65
[2024-02-27 23:00] VITALS: BP 98/58
[2024-02-27 23:11] LABS: ALBUMIN 3.8 g/dL (3.2-5.0); BILIRUBIN, TOTAL 0.4 mg/dL (0.02-1.3); CREATININE 0.5 mg/dL (0.5-1.0); POTASSIUM 3.8 mmol/l (3.5-5.1); TOTAL PROTEIN 6.1 g/dL (6.3-8.2)
[2024-02-28 01:35] VITALS: BP 98/58
[2024-02-28] MEDS ORDERED: oxyCODONE 5MG/ ACETAMINOPHEN 325MG TAB PO ONE (01:35)
== END 2024-02-28 01:35 | disposition home or self-care (01) ==
LOC: ED 21:17
PROVIDERS: Family Medicine
DX: M75.101 Unspecified rotator cuff tear or rupture of right shoulder, not specified as traumatic (principal); S40.011A Contusion of right shoulder, initial encounter; S40.021A Contusion of right upper arm, initial encounter; I10 Essential (primary) hypertension; E11.9 Type 2 diabetes mellitus without complications; F10.10 Alcohol abuse, uncomplicated; F41.9 Anxiety disorder, unspecified; F32.A Depression, unspecified; X58.XXXA Exposure to other specified factors, initial encounter; Z79.4 Long term (current) use of insulin; Z87.11 Personal history of peptic ulcer disease; Z79.01 Long term (current) use of anticoagulants
CPT/HCPCS: Q9967

== ENCOUNTER 2024-03-14 14:33 | Emergency (ER) | payer OTHER ==
[2024-03-14] VITALS (16 sets, daily range): BP systolic 105–144; BP diastolic 61–82
[~2024-03-14] VITALS: Ht 165.1 cm; Wt 72.0 kg
[2024-03-14] MEDS ORDERED: IPRATROPIUM-Albuterol 0.5MG-2.5MG/3 ML NEB ONE (14:45)
[2024-03-14 15:31] LABS: BASO% 0.5 % (0-3); EOS% 1.2 % (0-8); HEMATOCRIT 34.3 % (37.0-47.0); HEMOGLOBIN 10.6 g/dl (12.0-16.0); IMMATURE GRANULOCYTES 0.2 % (0.0-5.0); LYMPH% 13.3 % (15-41); MEAN CELL VOLUME 89.8 fL CALC (80.0-100.0); MEAN CORPUSCULAR HGB 27.7 pG CALC (26.0-32.0); MEAN CORPUSCULAR HGB CONC 30.9 g/dL CAL (32.0-36.0); MONO% 8.1 % (2-13); NEUT# 7.06 thou/uL (2.00-7.15); NEUT% 76.7 % (42-76); RED BLOOD COUNT 3.82 mill/uL (4.20-5.60); RED CELL DISTRI WIDTH 16.3 % (11.5-15.5)
[2024-03-14] MEDS ORDERED: HYDROcodone 5 MG/Acetaminophen 325 MG/COMBO PO ONE (15:35)
[2024-03-14 15:49] LABS: ALBUMIN 3.9 g/dL (3.2-5.0); ALKALINE PHOSPHATASE 80 u/l (38-126); ANION GAP 16 (6-22 (CALC)); BILIRUBIN, TOTAL 0.3 mg/dL (0.02-1.3); BUN 7 mg/dL (8-23); BUN/CREATININE RATIO 13 (12-20 (CALC)); CARBON DIOXIDE 20 mmol/l (22-30); CHLORIDE 102 mmol/l (95-108); CREATININE 0.5 mg/dL (0.5-1.0); ESTIMATED GFR 99 ML/MIN (>=90 (CALC)); POTASSIUM 3.6 mmol/l (3.5-5.1); SGOT/AST 29 u/l (9-36); SODIUM 134 mmol/l (137-146); TOTAL PROTEIN 6.4 g/dL (6.3-8.2)
[2024-03-14 17:48] LABS: URINE BILIRUBIN - DIPSTICK Negative (NEGATIVE); URINE BLOOD DIPSTICK Negative (NEGATIVE); URINE GLUCOSE - DIPSTICK 250 mg/dL (NEGATIVE); URINE KETONE Negative (NEGATIVE); URINE LEUK ESTERASE Negative (NEGATIVE); URINE NITRITE - DIPSTICK Negative (Negative); URINE PROTEIN - DIPSTICK Negative (NEG-TRACE); URINE SPECIFIC GRAVITY <=1.005; URINE UROBILINOGEN - DIPSTICK 0.2 E.U./dL (0.2)
[2024-03-14 17:49] LABS: URINE COLOR Straw
[2024-03-14] MEDS ORDERED: ZITHROMAX250 MG PO (18:45)
[2024-03-14] MEDS ORDERED: VENTOLIN HFA108 MCG IN (18:45)
[2024-03-14] MEDS ORDERED: AZITHROMYCIN 250 MG/TAB PO ONE (18:50)
[2024-03-14] MEDS ORDERED: PREDNISONE20 MG PO (18:52)
== END 2024-03-14 19:18 | disposition home or self-care (01) ==
LOC: ED 14:33
PROVIDERS: Nurse Practitioner Family
DX: J44.1 Chronic obstructive pulmonary disease with (acute) exacerbation (principal); R07.9 Chest pain, unspecified; I10 Essential (primary) hypertension; E11.9 Type 2 diabetes mellitus without complications; Z87.11 Personal history of peptic ulcer disease; Z79.4 Long term (current) use of insulin; Z20.822 Contact with and (suspected) exposure to COVID-19
CPT/HCPCS: J0696

== ENCOUNTER 2024-03-16 21:42 | Observation (INO) | payer OTHER ==
[~2024-03-16] VITALS: Ht 162.6 cm; Wt 69.7 kg
[~2024-03-16 21:42] MED LIST changes: +PREDNISONE20 MG PO; +VENTOLIN HFA108 MCG IN; +ZITHROMAX250 MG PO
[2024-03-16 22:17] LABS: HEMATOCRIT 35.1 % (37.0-47.0); HEMOGLOBIN 10.9 g/dl (12.0-16.0); IMMATURE GRANULOCYTES 0.6 % (0.0-5.0); LYMPH% 5.1 % (15-41); MEAN CELL VOLUME 88.9 fL CALC (80.0-100.0); MEAN CORPUSCULAR HGB 27.6 pG CALC (26.0-32.0); MEAN CORPUSCULAR HGB CONC 31.1 g/dL CAL (32.0-36.0); MONO% 3.8 % (2-13); NEUT# 9.14 thou/uL (2.00-7.15); NEUT% 90.5 % (42-76); RED BLOOD COUNT 3.95 mill/uL (4.20-5.60); RED CELL DISTRI WIDTH 16.5 % (11.5-15.5)
[2024-03-16 22:33] LABS: ALBUMIN 4.1 g/dL (3.2-5.0); ALKALINE PHOSPHATASE 79 u/l (38-126); ANION GAP 16 (6-22 (CALC)); BILIRUBIN, TOTAL 0.3 mg/dL (0.02-1.3); BUN 12 mg/dL (8-23); BUN/CREATININE RATIO 19 (12-20 (CALC)); CARBON DIOXIDE 20 mmol/l (22-30); CHLORIDE 105 mmol/l (95-108); CREATININE 0.6 mg/dL (0.5-1.0); ESTIMATED GFR 95 ML/MIN (>=90 (CALC)); POTASSIUM 3.8 mmol/l (3.5-5.1); SGOT/AST 32 u/l (9-36); SODIUM 137 mmol/l (137-146); TOTAL CHOLESTEROL 205 mg/dl (0-199); TOTAL PROTEIN 6.6 g/dL (6.3-8.2); TOTAL TRIGLYCERIDES 167 mg/dl (0-149); VLDL CHOLESTROL 33 mg/dl (0-48 (CALC))
[2024-03-16 22:38] LABS: PROTHROMBIN TIME 10.4 SECONDS (9.0-12.5)
[2024-03-16 22:41] LABS: CALCULATED LDLCHOLESTEROL 46 mg/dL (62-129 (CALC)); CHOLESTEROL HDL RATIO 1.6 (<4.4 (CALC)); HDL CHOLESTEROL 126 mg/dL (39.0-59.0)
[2024-03-16 23:30] VITALS: BP 128/82
[2024-03-16] MEDS ORDERED: MORPHINE SULFATE 4 MG/ML VIAL IV ONE (23:30)
[2024-03-16] MEDS ORDERED: Pantoprazole Sodium 40 MG VIAL (Protonix) IV ONE (23:30)
[2024-03-17] VITALS (31 sets, daily range): BP systolic 110–177; BP diastolic 67–142
[2024-03-17 01:05] LABS: URINE BILIRUBIN - DIPSTICK Negative (NEGATIVE); URINE BLOOD DIPSTICK Negative (NEGATIVE); URINE COLOR Yellow; URINE GLUCOSE - DIPSTICK >=1000 mg/dL (NEGATIVE); URINE KETONE Negative (NEGATIVE); URINE LEUK ESTERASE Trace (NEGATIVE); URINE NITRITE - DIPSTICK Negative (Negative); URINE PROTEIN - DIPSTICK Negative (NEG-TRACE); URINE SPECIFIC GRAVITY <=1.005; URINE UROBILINOGEN - DIPSTICK 0.2 E.U./dL (0.2)
[2024-03-17] MEDS ORDERED: SODIUM CHLORIDE 0.9% 1,000 ML IV PRN (01:05)
[2024-03-17] MEDS ORDERED: INSULIN REGULAR (HUMAN) 100 UNIT/ML INJ IV ONE (01:05)
[2024-03-17] MEDS ORDERED: ACETAMINOPHEN 325 MG/TAB PO PRN (01:05)
[2024-03-17] MEDS ORDERED: MAGNESIUM HYDROXIDE 30 ML UDC PO PRN (01:05)
[2024-03-17] MEDS ORDERED: HYDROXYZ HCL25 MG PO (01:34)
[2024-03-17] MEDS ORDERED: ANORO ELLIPTA 61 AER IN (01:34)
[2024-03-17] MEDS ORDERED: CLARIFY DOSE PO PRN (01:40)
[2024-03-17] MEDS ORDERED: MORPHINE SULFATE 4 MG/ML VIAL IV ONE (04:20)
[2024-03-17] MEDS ORDERED: DEXTROSE 250 ML IV PRN (07:40)
[2024-03-17] MEDS ORDERED: dilTIAZem HCl EXTENDED RELEASE 120 MG CAP PO SCH (09:00)
[2024-03-17] MEDS ORDERED: INSULIN GLARGINE 100 UNITS/ML SC SCH (09:00)
[2024-03-17] MEDS ORDERED: APIXABAN BASE 5 MG TAB PO SCH (09:00)
[2024-03-17] MEDS ORDERED: INSULIN LISPRO 100 UNITS/ML ML SC SCH (11:00)
[2024-03-17] MEDS ORDERED: HYDROcodone 5 MG/Acetaminophen 325 MG/COMBO PO PRN (11:30)
[2024-03-17] MEDS ORDERED: predniSONE 20 MG/TAB PO SCH (12:30)
[2024-03-17] MEDS ORDERED: AZITHROMYCIN 500 MG in SODIUM CHLORIDE 0.9% 500 ML IV SCH (12:30)
[2024-03-17] MEDS ORDERED: CARDIZEM CD120 MG PO (15:36)
[2024-03-17] MEDS ORDERED: HUMALOG100 UNIT/M SC (15:39)
[2024-03-17] MEDS ORDERED: ALBUTEROL SULFATE 2.5 MG VIAL NEB PRN (16:35)
[2024-03-17] MEDS ORDERED: ENOXAPARIN SODIUM 40 MG/0.4 ML SYR SC SCH (21:00)
[2024-03-18 04:58] LABS: HEMATOCRIT 35.8 % (37.0-47.0); MEAN CELL VOLUME 91.8 fL CALC (80.0-100.0); MEAN CORPUSCULAR HGB 28.2 pG CALC (26.0-32.0); MEAN CORPUSCULAR HGB CONC 30.7 g/dL CAL (32.0-36.0); RED BLOOD COUNT 3.9 mill/uL (4.20-5.60); RED CELL DISTRI WIDTH 16.4 % (11.5-15.5)
[2024-03-18 05:05] VITALS: BP 163/86
[2024-03-18 05:11] LABS: ALBUMIN 3.5 g/dL (3.2-5.0); BILIRUBIN, TOTAL 0.3 mg/dL (0.02-1.3); CREATININE 0.5 mg/dL (0.5-1.0); POTASSIUM 4.2 mmol/l (3.5-5.1); TOTAL PROTEIN 5.9 g/dL (6.3-8.2)
[2024-03-18 07:36] VITALS: BP 168/90
[2024-03-18 08:40] VITALS: BP 168/90
[2024-03-18] MEDS ORDERED: AZITHROMYCIN 500 MG in SODIUM CHLORIDE 0.9% 250 ML IV SCH (12:30)
== END 2024-03-18 11:22 | disposition home or self-care (01) ==
LOC: ED 21:42 → ED-I 03-17 00:30 → ED 03-17 01:01 → ED-I 03-17 01:01 → MS2 03-17 16:03
PROVIDERS: Family Medicine; Nurse Practitioner Family; ADMIT Internal Medicine; ATTEND Internal Medicine
DX: R29.810 Facial weakness (principal); R47.1 Dysarthria and anarthria; R07.9 Chest pain, unspecified; J44.1 Chronic obstructive pulmonary disease with (acute) exacerbation; F10.129 Alcohol abuse with intoxication, unspecified; Y90.4 Blood alcohol level of 80-99 mg/100 ml; E11.65 Type 2 diabetes mellitus with hyperglycemia; I10 Essential (primary) hypertension; E11.51 Type 2 diabetes mellitus with diabetic peripheral angiopathy without gangrene; I48.91 Unspecified atrial fibrillation; F41.9 Anxiety disorder, unspecified; F32.A Depression, unspecified; I65.23 Occlusion and stenosis of bilateral carotid arteries; D64.9 Anemia, unspecified; M19.011 Primary osteoarthritis, right shoulder; F17.210 Nicotine dependence, cigarettes, uncomplicated; Z87.11 Personal history of peptic ulcer disease; Z79.4 Long term (current) use of insulin; Z79.01 Long term (current) use of anticoagulants
CPT/HCPCS: G0378; J0456; J1815; J2470; Q9967

== ENCOUNTER 2024-05-07 13:53 | Emergency (ER) | payer OTHER ==
[~2024-05-07] VITALS: Ht 162.6 cm; Wt 76.0 kg
[~2024-05-07 13:53] MED LIST changes: +ANORO ELLIPTA 61 AER IN; +CARDIZEM CD120 MG PO; +HUMALOG100 UNIT/M SC; +HYDROXYZ HCL25 MG PO
[2024-05-07 13:59] VITALS: BP 122/65
[2024-05-07] MEDS ORDERED: IPRATROPIUM-Albuterol 0.5MG-2.5MG/3 ML NEB ONE ×3 (14:05)
[2024-05-07] MEDS ORDERED: methylPREDNISolone SODIUM SUCC 125 MG/2 ML SDV IV ONE (14:05)
[2024-05-07 14:15] VITALS: BP 115/68
[2024-05-07 14:26] LABS: BASO% 0.7 % (0-3); EOS% 0.4 % (0-8); HEMOGLOBIN 10.1 g/dl (12.0-16.0); IMMATURE GRANULOCYTES 0.1 % (0.0-5.0); LYMPH% 8.1 % (15-41); MEAN CELL VOLUME 87.3 fL CALC (80.0-100.0); MEAN CORPUSCULAR HGB 26.7 pG CALC (26.0-32.0); MEAN CORPUSCULAR HGB CONC 30.6 g/dL CAL (32.0-36.0); MONO% 7.7 % (2-13); NEUT# 6.88 thou/uL (2.00-7.15); RED BLOOD COUNT 3.78 mill/uL (4.20-5.60); RED CELL DISTRI WIDTH 17.3 % (11.5-15.5)
[2024-05-07 14:44] LABS: ALBUMIN 3.9 g/dL (3.2-5.0); ALKALINE PHOSPHATASE 78 u/l (38-126); ANION GAP 14 (6-22 (CALC)); BILIRUBIN, TOTAL 0.4 mg/dL (0.02-1.3); BUN 9 mg/dL (8-23); BUN/CREATININE RATIO 17 (12-20 (CALC)); CHLORIDE 102 mmol/l (95-108); CREATININE 0.5 mg/dL (0.5-1.0); ESTIMATED GFR 99 ML/MIN (>=90 (CALC)); POTASSIUM 4.2 mmol/l (3.5-5.1); SGOT/AST 49 u/l (9-36); SODIUM 132 mmol/l (137-146); TOTAL PROTEIN 6.3 g/dL (6.3-8.2)
[2024-05-07 14:50] LABS: CARBON DIOXIDE 20 mmol/l (22-30)
[2024-05-07 15:13] VITALS: BP 121/72
[2024-05-07 15:15] VITALS: BP 126/55
[2024-05-07] MEDS ORDERED: PREDNISONE20 MG PO (15:18)
[2024-05-07 15:26] VITALS: BP 126/55
[2024-05-07 15:30] LABS: URINE BILIRUBIN - DIPSTICK Negative (NEGATIVE); URINE BLOOD DIPSTICK Negative (NEGATIVE); URINE GLUCOSE - DIPSTICK 250 mg/dL (NEGATIVE); URINE KETONE Negative (NEGATIVE); URINE LEUK ESTERASE Negative (NEGATIVE); URINE NITRITE - DIPSTICK Negative (Negative); URINE PH 5.5 (4.5-8.0); URINE PROTEIN - DIPSTICK Negative (NEG-TRACE); URINE SPECIFIC GRAVITY <=1.005; URINE UROBILINOGEN - DIPSTICK 0.2 E.U./dL (0.2)
[2024-05-07 15:31] LABS: URINE COLOR Yellow
== END 2024-05-07 15:27 | disposition left against medical advice (07) ==
LOC: ED 13:53
PROVIDERS: Nurse Practitioner
DX: R06.00 Dyspnea, unspecified (principal); I10 Essential (primary) hypertension; E11.9 Type 2 diabetes mellitus without complications; F10.10 Alcohol abuse, uncomplicated; Z79.4 Long term (current) use of insulin; Z87.11 Personal history of peptic ulcer disease; Z87.891 Personal history of nicotine dependence; Z53.29 Procedure and treatment not carried out because of patient's decision for other reasons

== ENCOUNTER 2024-05-10 20:05 | Observation (INO) | payer OTHER ==
[~2024-05-10] VITALS: Ht 162.6 cm; Wt 71.0 kg
[2024-05-10] VITALS (8 sets, daily range): BP systolic 96–134; BP diastolic 50–81
--- NOTE | 2024-05-10 20:05 | NUR ---
PT TO RM #12 VIA EMS, NOTIFIED, EKG TKN, PT NOTED WITH MODERATE ANXIETY, AWAITING ORDERS.
[2024-05-10] MEDS ORDERED: IPRATROPIUM-Albuterol 0.5MG-2.5MG/3 ML IN ONE (20:15)
[2024-05-10] MEDS ORDERED: methylPREDNISolone SODIUM SUCC 125 MG/2 ML SDV IV ONE (20:15)
[2024-05-10] MEDS ORDERED: IPRATROPIUM-Albuterol 0.5MG-2.5MG/3 ML NEB ONE (20:15)
[2024-05-10 20:42] LABS: BASO% 0.1 % (0-3); HEMATOCRIT 32.9 % (37.0-47.0); HEMOGLOBIN 9.8 g/dl (12.0-16.0); IMMATURE GRANULOCYTES 0.3 % (0.0-5.0); LYMPH% 11.6 % (15-41); MEAN CELL VOLUME 87.5 fL CALC (80.0-100.0); MEAN CORPUSCULAR HGB 26.1 pG CALC (26.0-32.0); MEAN CORPUSCULAR HGB CONC 29.8 g/dL CAL (32.0-36.0); MONO% 8.6 % (2-13); NEUT# 8.17 thou/uL (2.00-7.15); NEUT% 79.4 % (42-76); RED BLOOD COUNT 3.76 mill/uL (4.20-5.60); RED CELL DISTRI WIDTH 17.8 % (11.5-15.5)
[2024-05-10 20:53] LABS: ALBUMIN 3.7 g/dL (3.2-5.0); ALKALINE PHOSPHATASE 84 u/l (38-126); ANION GAP 15 (6-22 (CALC)); BUN 12 mg/dL (8-23); BUN/CREATININE RATIO 20 (12-20 (CALC)); CARBON DIOXIDE 22 mmol/l (22-30); CHLORIDE 103 mmol/l (95-108); CREATININE 0.6 mg/dL (0.5-1.0); ESTIMATED GFR 95 ML/MIN (>=90 (CALC)); SGOT/AST 48 u/l (9-36); SODIUM 136 mmol/l (137-146)
[2024-05-10 20:54] LABS: BILIRUBIN, TOTAL 0.2 mg/dL (0.02-1.3)
--- NOTE | 2024-05-10 21:00 | NUR ---
PT CXR TKN, AWAITING ALL RESULTS, PT REPOSITIONED FOR COMFORT, ON CONTINUOUS MONITORING, CALL LIGHT WITHIN REACH, NEB TX CMP.
[2024-05-10 21:12] LABS: URINE BILIRUBIN - DIPSTICK Negative (NEGATIVE); URINE BLOOD DIPSTICK Negative (NEGATIVE); URINE GLUCOSE - DIPSTICK >=1000 mg/dL (NEGATIVE); URINE KETONE Negative (NEGATIVE); URINE NITRITE - DIPSTICK Negative (Negative); URINE PH 5.5 (4.5-8.0); URINE PROTEIN - DIPSTICK Negative (NEG-TRACE); URINE SPECIFIC GRAVITY <=1.005; URINE UROBILINOGEN - DIPSTICK 0.2 E.U./dL (0.2)
[2024-05-10 21:13] LABS: URINE COLOR Light yellow; URINE LEUK ESTERASE Small (NEGATIVE)
--- NOTE | 2024-05-10 21:14 | NUR ---
PT FAMILY ARRIVES AT BEDSIDE, AWAITING RESULTS, VSS, CALL LIGHT WITHIN REACH.
[2024-05-10 21:22] LABS: URINE SQUAMOUS EPITHELIAL CELL FEW EPI/hpf (0-FEW)
[2024-05-10 21:23] LABS: URINE BACTERIA FEW hpf; URINE YEAST FEW hpf
[2024-05-10] MEDS ORDERED: chlordiazePOXIDE HCL 25 MG CAP PO ONE (21:45)
[2024-05-10] MEDS ORDERED: ACETAMINOPHEN 325 MG/TAB PO PRN (21:50)
[2024-05-10] MEDS ORDERED: MAGNESIUM HYDROXIDE 30 ML UDC PO PRN (21:50)
[2024-05-10] MEDS ORDERED: Zaleplon 5 MG/CAP PO PRN (21:50)
[2024-05-10] MEDS ORDERED: methylPREDNISolone Sod Succ 40 MG/ML SDV IV SCH (21:51)
[2024-05-10] MEDS ORDERED: DOXYCYCLINE HYCLATE 100 MG in SODIUM CHLORIDE 0.9% 100 ML IV SCH (21:55)
[2024-05-10] MEDS ORDERED: ALBUTEROL SULFATE 2.5 MG VIAL NEB SCH (21:55)
[2024-05-10] MEDS ORDERED: MORPHINE SULFATE 4 MG/ML VIAL IV ONE (22:30)
--- NOTE | 2024-05-10 22:55 | NUR ---
PT MEDICATED PER ORDERS, UPDATED ON CONTINUOUS PLAN OF CARE, VOICES APPRECIATION AT THIS TIME, PT AWAITING NURSE AT THIS TIME FOR REPORT AND ADMISSION.
[2024-05-10] MEDS ORDERED: PROCHLORPERAZINE5 M1 PO (23:03)
[2024-05-10] MEDS ORDERED: FUROSEMIDE20 MG PO (23:03)
[2024-05-10] MEDS ORDERED: COZAAR25 MG PO (23:04)
[2024-05-10] MEDS ORDERED: BREZTRI AEROSPH1 AER PO (23:05)
--- NOTE | 2024-05-10 23:15 | NUR ---
PT ASSESSED, RESTING AT THIS TIME, EASILY AROUSABLE WITH NAD NOTED.
--- NOTE | 2024-05-10 23:30 | NUR ---
REPORT GIVEN TO MIGUEL ON MS2 AT THIS TIME.
[2024-05-11] VITALS (10 sets, daily range): BP systolic 120–155; BP diastolic 54–85
--- NOTE | 2024-05-11 | NUR ---
NEB TX CMP, PT CONTINUES TO REQUEST ADDITIONAL MORPHINE DUE TO PAIN UNSUBSIDED, PT UPDATED ON ORDERS, PT SCREAMING AT STAFF, PT UPDATED ON CONTINUOUS PLAN OF CARE, AWAITING TRANSPORT TO MS2.
--- NOTE | 2024-05-11 00:20 | NUR ---
PT TRANSPORTED TO MS2 AT THIS TIME VIA W/C, PT AMB WITH SHAKING GAIT TO BED, NURSE AT BEDSIDE.
--- NOTE | 2024-05-11 00:20 | NUR ---
[id number] 73 yr old white female admitted to 280 per wc from er. VERY frequently asking for pain meds. instructed pt pain meds were given @ 2257. pt said "only a tiny bit." cardiac catheterization technician shows sinus tach. saline lock in place. history obtained per pt & er record. oriented to room. pt drank 3 cartons of milk & small bottle of water then took tylenol.
--- NOTE | 2024-05-11 03:59 | NUR ---
pvc monitor shows sinus rhythm hr 90
[2024-05-11 05:25] LABS: HEMATOCRIT 31.9 % (37.0-47.0); HEMOGLOBIN 9.9 g/dl (12.0-16.0); IMMATURE GRANULOCYTES 0.5 % (0.0-5.0); LYMPH% 3.2 % (15-41); MEAN CELL VOLUME 86.9 fL CALC (80.0-100.0); MONO% 1.6 % (2-13); NEUT# 5.94 thou/uL (2.00-7.15); NEUT% 94.7 % (42-76); RED BLOOD COUNT 3.67 mill/uL (4.20-5.60); RED CELL DISTRI WIDTH 17.7 % (11.5-15.5)
[2024-05-11 05:45] LABS: ALBUMIN 3.5 g/dL (3.2-5.0); BILIRUBIN, TOTAL 0.3 mg/dL (0.02-1.3); CREATININE 0.6 mg/dL (0.5-1.0); POTASSIUM 4.9 mmol/l (3.5-5.1); TOTAL PROTEIN 5.8 g/dL (6.3-8.2)
[2024-05-11] MEDS ORDERED: INSULIN LISPRO 100 UNITS/ML ML SC SCH (07:00)
--- NOTE | 2024-05-11 07:54 | NUR ---
PT IS AOX4, RESPIRATIONS ARE QUICK AND SHALLOW, LUNGS ARE DIM AT BILATERAL LOWER LOBES, EXPIRATORY WHEEZING NOTED IN BILATERAL UPPER LOBES, BOWEL SOUNDS ARE ACTIVE, PEDAL PULSES ARE PALPABLE TO TOUCH WITH TRACE OITTING EDEMA NOTED TO RIGHT FOOT. ELEVATED RIGHT FOOT ON PILLOW. TREMMORS NOTED, PT STATES ITS FROM THE "STEROIDS"
[2024-05-11] MEDS ORDERED: HYDROcodone 5 MG/Acetaminophen 325 MG/COMBO PO PRN (09:35)
[2024-05-11 09:53] LABS: AMYLASE 45 u/l (30-110); LIPASE 12 u/l (23-300)
[2024-05-11] MEDS ORDERED: Pantoprazole Sodium 40 MG VIAL (Protonix) IV SCH (10:30)
[2024-05-11] MEDS ORDERED: APIXABAN BASE 5 MG TAB PO SCH (10:30)
[2024-05-11] MEDS ORDERED: dilTIAZem HCl EXTENDED RELEASE 120 MG CAP PO SCH (10:30)
[2024-05-11] MEDS ORDERED: ALPRAZolam 0.5 MG/TAB PO SCH (10:30)
[2024-05-11] MEDS ORDERED: CREON12000 UNT PO (11:51)
[2024-05-11] MEDS ORDERED: PANCREATIC ENZYMES 12 000 UNITS LIPASE PO SCH (13:05)
[2024-05-11] MEDS ORDERED: ALBUTEROL SULFATE 2.5 MG VIAL NEB SCH (15:00)
--- NOTE | 2024-05-11 19:26 | NUR ---
0706 bedside report given. pt sitting up in recliner. AxOx4. Pt watching tv. no complaintd of pain. no signs of respiratory distress. ot states she " does not wear oxyen at home. good rise and fall of chest call light within reach.
--- NOTE | 2024-05-11 20:36 | NUR ---
pt sitting in recliner. received meds, tolerated well with no issues. pt received 240 mL of water. lungs clear uon auscultation. good rise and fall of chest. pupil size 3 bilaterally. PERRLA. able to track and focus no complaints of chest pain or respiratory distress. capillary refill less than 3 seconds. bilateral radial and pedal pulses present. skin color normal for ethnicity. skin warm to touch. able to swallow and chew without any issues. IV checked for patency. blood return present, IV site flushes with no issues. at bedside
--- NOTE | 2024-05-11 20:59 | NUR ---
reassessed patient's pain level. pain now at a 4. tolerated pain med. pain gradually decreasing
--- NOTE | 2024-05-11 23:14 | NUR ---
2230 pt back in bed. at bedside. pt able to get herself in bed. no complaints of pain. no signs of respiratory distress. HOB semi quiñones
--- NOTE | 2024-05-11 23:53 | NUR ---
pt advised to not put pressure on affected extremity and allow to be changed in bed pt insisted he get up and place even distrubted pressure on both lower extremities. pt back in bed.
[2024-05-12] VITALS (7 sets, daily range): BP systolic 91–169; BP diastolic 47–85
[2024-05-12 07:20] LABS: HEMATOCRIT 31.3 % (37.0-47.0); HEMOGLOBIN 9.8 g/dl (12.0-16.0); IMMATURE GRANULOCYTES 0.3 % (0.0-5.0); LYMPH% 3.8 % (15-41); MEAN CELL VOLUME 86.2 fL CALC (80.0-100.0); MEAN CORPUSCULAR HGB CONC 31.3 g/dL CAL (32.0-36.0); MONO% 5.2 % (2-13); NEUT# 8.18 thou/uL (2.00-7.15); NEUT% 90.7 % (42-76); RED BLOOD COUNT 3.63 mill/uL (4.20-5.60); RED CELL DISTRI WIDTH 17.6 % (11.5-15.5)
[2024-05-12 07:28] LABS: ALBUMIN 3.7 g/dL (3.2-5.0); CREATININE 0.6 mg/dL (0.5-1.0); MAGNESIUM 2.3 mg/dL (1.6-2.3); POTASSIUM 4.2 mmol/l (3.5-5.1); TOTAL PROTEIN 5.9 g/dL (6.3-8.2)
--- NOTE | 2024-05-12 07:30 | NUR ---
PT IS AOX4, RESPIRATIONS ARE EVEN UNLABORED AT REST IN CHAIR, BECOMES QUICK AND SHALLOW WITH MOVEMENT, ON ROOM AIR, EXPIRATORY WHEEZING NOTED TO RIGHT LOWER LUNG AND EXPIRATORY WHEEZING NOTED TO BILATERAL UPPER LOBES, RIGHT LOWER LUNG SOUNDS CLEAR, BOWEL SOUNDS ARE ACTIVE, PEDAL PULSES ARE PALPABLE TO TOUCH. BILATERAL LOWER EXTREMITIES WITH SOME TREMORS. PT STATES SHE "NEEDS A HIGHER MG FOR PAIN MEDICATIONS" REPORTS PAIN AT A 8 ON A 0-10 PAIN SCALE, RECIEVED PRN HYDROCODONE AT 0507.
[2024-05-12 07:38] LABS: BILIRUBIN, TOTAL 0.5 mg/dL (0.02-1.3)
[2024-05-12] MEDS ORDERED: HYDROcodone 7.5 MG/Acetaminophen 325 MG/COMBO PO PRN (09:25)
--- NOTE | 2024-05-12 16:23 | NUR ---
PT SITTING UP IN CHAIR, RESPIRATIONS ARE EVEN AND UNLABORED ON ROOM AIR, PT CURRENTLY TEARFUL ABOUT MOM THAT IS HAVING SOME HEALTH ISSUES. PROVIDED PT WITH COMFORT AND PAIN MEDICATION FOR PAIN REPORTED AT A 7 ON A 0-10 PAIN SCALE.
--- NOTE | 2024-05-12 16:42 | NUR ---
NOTIFIED NAFISA DENNISON THAT PT'S CURRENT BLOODSUGAR IS 420. GAVE PT THE ORDERED 10 UNIT OF INSULIN.
[2024-05-12] MEDS ORDERED: PANTOPRAZOLE SODIUM Sesquihydr 40 MG/TAB PO SCH (21:00)
--- NOTE | 2024-05-12 21:00 | NUR ---
PT SITTING IN CHAIR WITH SLIGHT ANXIETY DUE TO MOTHER'S HEALTH. PT YELLING AT STAFF BUT WAS ABLE TO BE REDIRECTED. PT STATED HAVING LOWER BACK PAIN 11/24. NURSE PROVIDED PAIN MEDICATION. IV FLUSHED WORKING PROPERLY AND DRESSING CHANGED DUE TO DRY BLOOD PER PT REQUEST. PT NOTED TO HAVE LOWERE BACK RASH. PER PT IT IS DUE TO A HEATING PAD WHEN SHE WAS AT HOME NO EDEMA NOTED. CALL LIGHT WITHIN REACH. PLAN OF CARE ONGOING.
[2024-05-13 00:27] VITALS: BP 116/54
--- NOTE | 2024-05-13 00:45 | NUR ---
PT RESTING IN BED NO DISTRESS NOTED ON EXAM. CALL LIGHT WITHIN REACH. PLAN OF CARE ONGOING.
[2024-05-13] MEDS ORDERED: ALBUTEROL SULFATE 2.5 MG VIAL ONE (03:09)
--- NOTE | 2024-05-13 03:45 | NUR ---
PT SITTING UP IN CHAIR STATING HAVING BACK PAIN NURSE PROVIDED PAIN MEDICATION. CALL LIGHT WITHIN REACH. PLAN OF CARE ONGOING.
[2024-05-13 04:35] VITALS: BP 140/78
[2024-05-13 05:30] LABS: HEMATOCRIT 33.9 % (37.0-47.0); HEMOGLOBIN 10.4 g/dl (12.0-16.0); IMMATURE GRANULOCYTES 0.4 % (0.0-5.0); MEAN CELL VOLUME 88.1 fL CALC (80.0-100.0); MEAN CORPUSCULAR HGB CONC 30.7 g/dL CAL (32.0-36.0); MONO% 3.8 % (2-13); NEUT# 8.37 thou/uL (2.00-7.15); NEUT% 92.8 % (42-76); RED BLOOD COUNT 3.85 mill/uL (4.20-5.60); RED CELL DISTRI WIDTH 17.7 % (11.5-15.5)
[2024-05-13 05:36] LABS: ALBUMIN 3.7 g/dL (3.2-5.0); BILIRUBIN, TOTAL 0.5 mg/dL (0.02-1.3); CREATININE 0.7 mg/dL (0.5-1.0); MAGNESIUM 2.4 mg/dL (1.6-2.3); POTASSIUM 4.2 mmol/l (3.5-5.1)
--- NOTE | 2024-05-13 07:49 | NUR ---
PATIENT SITTING UP IN RECLINER GETTING NEB TREATMENT. BREATHING UNLABORED ON ROOM AIR.TELE INTACT. IV IN RIGHT WRIST SL;SITE CLEAN AND INTACT. PT APPEARS TO BE SHAKY AND REQUESTED SOMETHING FOR HER NERVES;MEDICATION REVIEWED AND ADMINISTERED PER EMAR. PT DENIES ANY N/D/V AT THIS TIME. PERSONAL ITEMS WELL CALL LIGHT NEAR. NO OTHER NEEDS AT THIS TIME. POC ONGOING.
[2024-05-13 08:15] VITALS: BP 156/82
[2024-05-13] MEDS ORDERED: PROTONIX40 M2 PO (10:40)
[2024-05-13] MEDS ORDERED: XANAX0.5 MG PO (10:40)
[2024-05-13] MEDS ORDERED: HYDROCODONE BIT1 TA8 PO (10:42)
[2024-05-13] MEDS ORDERED: DOXYCYCLINE100 MG PO (10:43)
[2024-05-13] MEDS ORDERED: PREDNISONE10 MG PO (10:45)
--- NOTE | 2024-05-13 11:29 | NUR ---
Discharge instructions given. Patient verbalizes understanding of same. Discharged in stable condition via Wheelchair to Home with spouse. All belongings sent with pt. Tele #[phone] removed and placed in bin at nursing station.
[2024-05-13 11:31] VITALS: BP 115/83
--- NOTE | 2024-05-14 10:19 | NUR ---
Discharge follow up call completed 05/14/24. Patient states she has had difficulty getting her insulin from her regular pharmacy. She contacted the retail pharmacy at [facility] and they are getting her prescriptions ready. She will follow up with her PCP next week. No other needs verbalized at this time.
== END 2024-05-13 11:19 | disposition home or self-care (01) ==
LOC: ED 20:05 → ED-I 21:28 → ED 21:40 → MS2 21:41
PROVIDERS: Emergency Medicine; Nurse Practitioner; Nurse Practitioner Family; ADMIT Internal Medicine; ATTEND Internal Medicine
DX: J44.1 Chronic obstructive pulmonary disease with (acute) exacerbation (principal); K86.1 Other chronic pancreatitis; F10.129 Alcohol abuse with intoxication, unspecified; Y90.6 Blood alcohol level of 120-199 mg/100 ml; I10 Essential (primary) hypertension; E11.9 Type 2 diabetes mellitus without complications; I48.91 Unspecified atrial fibrillation; E78.1 Pure hyperglyceridemia; F41.9 Anxiety disorder, unspecified; F32.A Depression, unspecified; M41.9 Scoliosis, unspecified; F17.200 Nicotine dependence, unspecified, uncomplicated; Z79.4 Long term (current) use of insulin; Z79.01 Long term (current) use of anticoagulants; Z87.11 Personal history of peptic ulcer disease; Z20.822 Contact with and (suspected) exposure to COVID-19
CPT/HCPCS: G0378; J1815; J2470

== ENCOUNTER 2024-05-24 15:36 | Emergency (ER) | payer OTHER ==
[2024-05-24] VITALS (8 sets, daily range): BP systolic 93–133; BP diastolic 52–73
[~2024-05-24] VITALS: Ht 162.6 cm; Wt 77.1 kg
[~2024-05-24 15:36] MED LIST changes: +BREZTRI AEROSPH1 AER PO; +COZAAR25 MG PO; +DOXYCYCLINE100 MG PO; +FUROSEMIDE20 MG PO; +HYDROCODONE BIT1 TA8 PO; +PROCHLORPERAZINE5 M1 PO; +XANAX0.5 MG PO
[2024-05-24 16:07] LABS: URINE BILIRUBIN - DIPSTICK Negative (NEGATIVE); URINE BLOOD DIPSTICK Negative (NEGATIVE); URINE GLUCOSE - DIPSTICK >=1000 mg/dL (NEGATIVE); URINE KETONE Negative (NEGATIVE); URINE LEUK ESTERASE Negative (NEGATIVE); URINE NITRITE - DIPSTICK Negative (Negative); URINE PH 5.5 (4.5-8.0); URINE PROTEIN - DIPSTICK Negative (NEG-TRACE); URINE SPECIFIC GRAVITY <=1.005; URINE UROBILINOGEN - DIPSTICK 0.2 E.U./dL (0.2)
[2024-05-24 16:09] LABS: URINE COLOR Yellow
[2024-05-24] MEDS ORDERED: CLOTRIMAZOLE10 MG PO (17:02)
[2024-05-24] MEDS ORDERED: ANTI-FUNGAL12 EX (17:02)
== END 2024-05-24 17:30 | disposition home or self-care (01) ==
LOC: ED 15:36
PROVIDERS: Family Medicine
DX: B37.0 Candidal stomatitis (principal); B37.31 Acute candidiasis of vulva and vagina; I10 Essential (primary) hypertension; E11.9 Type 2 diabetes mellitus without complications; I48.91 Unspecified atrial fibrillation; E78.1 Pure hyperglyceridemia; F41.9 Anxiety disorder, unspecified; F32.A Depression, unspecified; F10.10 Alcohol abuse, uncomplicated; F17.200 Nicotine dependence, unspecified, uncomplicated; Z87.11 Personal history of peptic ulcer disease; Z20.822 Contact with and (suspected) exposure to COVID-19

== ENCOUNTER 2024-06-06 13:35 | Emergency (ER) | payer OTHER ==
[~2024-06-06] VITALS: Ht 162.6 cm; Wt 63.0 kg
[~2024-06-06 13:35] MED LIST changes: +ANTI-FUNGAL12 EX; +CLOTRIMAZOLE10 MG PO
[2024-06-06 13:40] VITALS: BP 118/67
[2024-06-06] MEDS ORDERED: IPRATROPIUM-Albuterol 0.5MG-2.5MG/3 ML NEB ONE (13:50)
[2024-06-06] MEDS ORDERED: methylPREDNISolone SODIUM SUCC 125 MG/2 ML SDV IV ONE (13:50)
[2024-06-06 14:00] VITALS: BP 113/71
[2024-06-06] MEDS ORDERED: HALOPERIDOL LACTATE 5 MG/ML SDV IV ONE (14:05)
[2024-06-06 14:12] LABS: BASO% 0.4 % (0-3); EOS% 0.1 % (0-8); HEMATOCRIT 34.2 % (37.0-47.0); HEMOGLOBIN 10.1 g/dl (12.0-16.0); IMMATURE GRANULOCYTES 0.3 % (0.0-5.0); LYMPH% 4.7 % (15-41); MEAN CELL VOLUME 84.7 fL CALC (80.0-100.0); MEAN CORPUSCULAR HGB CONC 29.5 g/dL CAL (32.0-36.0); NEUT# 9.75 thou/uL (2.00-7.15); NEUT% 91.5 % (42-76); RED BLOOD COUNT 4.04 mill/uL (4.20-5.60); RED CELL DISTRI WIDTH 17.8 % (11.5-15.5)
[2024-06-06 14:24] LABS: BILIRUBIN, TOTAL 0.5 mg/dL (0.02-1.3); BUN 7 mg/dL (8-23); BUN/CREATININE RATIO 15 (12-20 (CALC)); CHLORIDE 102 mmol/l (95-108); CREATININE 0.5 mg/dL (0.5-1.0); ESTIMATED GFR 99 ML/MIN (>=90 (CALC)); POTASSIUM 4.4 mmol/l (3.5-5.1); SGOT/AST 38 u/l (9-36); SODIUM 133 mmol/l (137-146); TOTAL PROTEIN 6.8 g/dL (6.3-8.2)
[2024-06-06 14:31] VITALS: BP 113/57
[2024-06-06 14:35] LABS: ALKALINE PHOSPHATASE 167 u/l (38-126); ANION GAP 17 (6-22 (CALC)); CARBON DIOXIDE 18 mmol/l (22-30)
[2024-06-06] MEDS ORDERED: SODIUM CHLORIDE 0.9% 1,000 ML IV ONE (14:50)
[2024-06-06 15:00] VITALS: BP 114/67
[2024-06-06 15:15] VITALS: BP 114/67
== END 2024-06-06 15:12 | disposition left against medical advice (07) ==
LOC: ED 13:35
PROVIDERS: Nurse Practitioner Family
DX: B34.9 Viral infection, unspecified (principal); J43.9 Emphysema, unspecified; I10 Essential (primary) hypertension; E11.9 Type 2 diabetes mellitus without complications; K21.9 Gastro-esophageal reflux disease without esophagitis; I48.91 Unspecified atrial fibrillation; F41.9 Anxiety disorder, unspecified; F32.A Depression, unspecified; F17.200 Nicotine dependence, unspecified, uncomplicated; F10.10 Alcohol abuse, uncomplicated; Z53.29 Procedure and treatment not carried out because of patient's decision for other reasons; Z87.11 Personal history of peptic ulcer disease; Z20.822 Contact with and (suspected) exposure to COVID-19
CPT/HCPCS: J1630